=== PATIENT | female | born 1950 | race Caucasian/White ===

== ENCOUNTER 2016-09-01 19:59 | Emergency (ER) | payer MEDICARE ==
[2016-09-01 20:12] VITALS: BP 175/63
[2016-09-01 21:27] LABS: Budding Yeast Present (Absent); Urine Bacteria 1+ (Absent); Urine Bilirubin Negative (Negative); Urine Glucose Negative (Negative); Urine Nitrite Negative (Negative)
--- NOTE | 2016-09-01 21:40 | RAD ---
Indication: Altered mental status. Confused and hallucinating for the last couple of days. Craniotomy in July 2016. Comparison: August 01, 2016 MRI and June 26, 2016 CT. Technique: Noncontrast CT vertex of skull through foramen magnum. Report: 3.5 cm transverse by 1.4 cm AP postsurgical defect in the RIGHT temporal lobe inferiorly extending to the uncus medially. Overlying craniotomy site. 2 mm hyperdense band subjacent to the RIGHT temporal craniotomy site most suspicious for postsurgical meningeal thickening. No compelling evidence for extra or intra-axial hemorrhage. Negative for sulcal effacement. Negative for ventriculomegaly or ventricular compression. Negative for midline shift. Patent basal cisterns. No new intra or extra-axial lesions evident. No suspicious osseous lesions. Unremarkable visualized orbital contents. Clear visualized paranasal sinuses and mastoid air spaces. IMPRESSION: 1. Postsurgical defect reflecting interval resection at the RIGHT temporal lobe. Probable mild overlying postsurgical meningeal edema/thickening. 2. Negative for mass effect.
[2016-09-01 22:04] LABS: Hematocrit 45 % (35-47); Hemoglobin 15.5 g/dl (12.0-16.0); Mean Corpuscular HGB Conc 34 g/dl (31-36); Mean Corpuscular Hemoglobin 33 pg (27-31); Mean Corpuscular Volume 96 fL (80-97); Mean Platelet Volume 8 um3 (7.4-10.4); Red Blood Count 4.68 10^6/ul (4.0-5.4); Red Cell Distribution Width 14 % (10.5-15); White Blood Count 9.7 10^3/ul (3.5-10.8)
[2016-09-01 22:23] LABS: Albumin 4.3 g/dL (3.2-5.2); BUN/Creatinine Ratio 27.3 (8-20); C Reactive Protein 2.03 mg/L (< 5.00); Calcium 9.6 mg/dL (8.6-10.3); EGFR African American 141.8 (>60); EGFR Non-African American 110.2 (>60); Globulin 2.6 g/dL (2-4); Total Bilirubin 0.5 mg/dL (0.2-1.0); Total Protein 6.9 g/dL (6.4-8.9)
[2016-09-01 22:50] LABS: Potassium 4.2 mmol/L (3.5-5.0); Valproic Acid 100.2 mcg/mL (50-100)
--- NOTE | 2016-09-01 23:44 | ED ---
Melvin Sharp Adam, scribed for Bonifacio Myers MD on 09/01/16 at 2041 . Altered Mental Status - HPI Summary HPI Summary: Pt is a 65 year old female presenting with AMS since 16:00 today. On 06/25 the pt collapsed and had an apparent seizure. 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 It was resected on 08/19 at [facility] and she has been home taking Lortab, clonazepam, and Depakote since then. Pt's states that she suddenly began exhibiting "disjointed cognition" at 16:00 today. She thought she was seeing people who were not there and she was wondering why they were in the right house but it was in the wrong neighborhood. They called Dr. Otero and spoke with Alison Webster who did not think this AMS was due to a medication withdrawal (the pt has been taking less Lortab over the past 2 days). She also reports having pain in the back of her neck earlier today. She has been using a walker since 06/25 and working with physical therapy. She denies dizziness but states that she has difficulty balancing. She is scheduled to have her sutures removed at [facility] in 3 days. - History Of Current Complaint Chief Complaint: EDAltMentalStatus Stated Complaint: AMS Time Seen by Provider: 09/01/16 20:20 Hx Obtained From: Patient, Family/Qa Consultant - Pt's Onset/Duration: Suddenly Timing: Constant, Lasting Hours Severity Initially: Moderate Severity Currently: Mild Character: Confusion, Agitation Aggravating Factor(s): Unknown Alleviating Factor(s): Nothing Related History: Seizure - Allergies/Home Medications Allergies/Adverse Reactions: Allergies Allergy/AdvReac Type Severity Reaction Status Date / Time Codeine Allergy Vomiting Verified 07/31/16 19:55 PMH/Surg Hx/FS Hx/Imm Hx Endocrine/Hematology History: Denies: Hx Diabetes, Hx Thyroid Disease, Hx Anemia Cardiovascular History: Denies: Hx Hypertension, Hx Pacemaker/ICD Respiratory History: Denies: Hx Asthma, Hx Chronic Obstructive Pulmonary Disease (COPD) GI History: Denies: Hx Jaundice, Hx Ulcer History: Reports: Other Problems/Disorders - stress incontinence Musculoskeletal History: Reports: Hx Osteoporosis - low back Sensory History: Reports: Hx Contacts or Glasses Denies: Hx Hearing Aid Opthamlomology History: Reports: Hx Contacts or Glasses Neurological History: Reports: Hx Seizures Denies: Hx Headaches Psychiatric History: Denies: Hx Panic Disorder - Cancer History Cancer Type, Location and Year: 10 yrs ago. Right Breast stage 1 Hx Radiation Therapy: Yes - + 5 YRS PILL - Surgical History Surgery Procedure, Year, and Place: Rt LUMPTECOMY -2003. HYSTERECTOMY. PROLAPSED -BLADDER LIFT/SLING -2013. C SECTION Hx Anesthesia Reactions: No Infectious Disease History: No Infectious Disease History: Reports: Hx Hepatitis - as a 18 yr old Denies: Hx Human Immunodeficiency Virus (HIV), Hx Shingles, Hx Tuberculosis, Traveled Outside the [place] in Last 30 Days - Family History Known Family History: Positive: Other - Breast CA - Social History Occupation: Retired Lives: With Family - Alcohol Use: Weekly Alcohol Amount: one glass wine 3-4x week Hx Substance Use: No Substance Use Type: Reports: None Hx Tobacco Use: No Smoking Status (MU): Never Smoked Tobacco Review of Systems Constitutional: Negative Negative: Fever Positive: Other - Pain in back of neck Neurological: Other - Confusion. Difficulty balancing Positive: Depressed, Other - Labile mood All Other Systems Reviewed And Are Negative: Yes Physical Exam Triage Information Reviewed: Yes Vital Signs On Initial Exam: Initial Vitals Temp Pulse Resp BP Pulse Ox 98.3 F 85 16 175/63 100 09/01/16 20:04 09/01/16 20:04 09/01/16 20:04 09/01/16 20:04 09/01/16 20:04 Vital Signs Reviewed: Yes Appearance: Positive: Well-Appearing, No Pain Distress Skin: Positive: Warm, Skin Color Reflects Adequate Perfusion, Dry Head/Face: Positive: Normal Head/Face Inspection Eyes: Positive: Normal ENT: Positive: Normal ENT inspection Neck: Positive: Supple, Nontender Respiratory/Lung Sounds: Positive: Clear to Auscultation, Breath Sounds Present Cardiovascular: Positive: RRR Abdomen Description: Positive: Nontender, Soft Bowel Sounds: Positive: Present Musculoskeletal: Positive: Normal Neurological: Positive: Normal Psychiatric: Positive: Normal, Affect/Mood Appropriate Diagnostics - Vital Signs Vital Signs Temp Pulse Resp BP Pulse Ox 09/01/16 20:04 98.3 F 85 16 175/63 100 - Laboratory Lab Results: Lab Results 09/01/16 09/01/16 09/01/16 Range/Units 20:54 21:53 21:53 WBC 9.7 (3.5-10.8) 10^3/ul RBC 4.68 (4.0-5.4) 10^6/ul Hgb 15.5 (12.0-16.0) g/dl Hct 45 (35-47) % MCV 96 (80-97) fL MCH 33 H (27-31) pg MCHC 34 (31-36) g/dl RDW 14 (10.5-15) % Plt Count 314 (150-450) 10^3/ul MPV 8 (7.4-10.4) um3 Neut % (Auto) 66.7 (38-83) % Lymph % (Auto) 25.8 (25-47) % Coleman % (Auto) 6.6 (1-9) % Eos % (Auto) 0.3 (0-6) % Baso % (Auto) 0.6 (0-2) % Absolute Neuts (auto) 6.5 (1.5-7.7) 10^3/ul Absolute Lymphs (auto) 2.5 (1.0-4.8) 10^3/ul Absolute Monos (auto) 0.6 (0-0.8) 10^3/ul Absolute Eos (auto) 0 (0-0.6) 10^3/ul Absolute Basos (auto) 0.1 (0-0.2) 10^3/ul Absolute Nucleated RBC 0.01 10^3/ul Nucleated RBC % 0.1 Sodium 138 (133-145) mmol/L Potassium 4.2 (3.5-5.0) mmol/L Chloride 104 (101-111) mmol/L Carbon Dioxide 24 (22-32) mmol/L Anion Gap 10 (2-11) mmol/L BUN 15 (6-24) mg/dL Creatinine 0.55 (0.51-0.95) mg/dL Est GFR ( Amer) 141.8 (>60) Est GFR (Non-Af Amer) 110.2 (>60) BUN/Creatinine Ratio 27.3 H (8-20) Glucose 117 H (70-100) mg/dL Lactic Acid (0.5-2.0) mmol/L Calcium 9.6 (8.6-10.3) mg/dL Total Bilirubin 0.50 (0.2-1.0) mg/dL AST 19 (13-39) U/L ALT 26 (7-52) U/L Alkaline Phosphatase 45 (34-104) U/L Ammonia (16-53) mol/L Troponin I 0.00 (<0.04) ng/mL C-Reactive Protein 2.03 (< 5.00) mg/L Total Protein 6.9 (6.4-8.9) g/dL Albumin 4.3 (3.2-5.2) g/dL Globulin 2.6 (2-4) g/dL Albumin/Globulin Ratio 1.7 (1-3) Urine Color Yellow Urine Appearance Cloudy Urine pH 7.0 (5-9) Ur Specific [place] 1.026 (1.010-1.030) Urine Protein Negative (Negative) Urine Ketones 1+ H (Negative) Urine Blood Negative (Negative) Urine Nitrate Negative (Negative) Urine Bilirubin Negative (Negative) Urine Urobilinogen Negative (Negative) Ur Leukocyte Esterase 1+ H (Negative) Urine WBC (Auto) 1+(6-10/hpf) H (Absent) Urine RBC (Auto) Trace(0-2/hpf) (Absent) Ur Squamous Epith Cells Present H (Absent) Ur Transition Epith Cell Present H (Absent) Urine Bacteria 1+ H (Absent) Urine Yeast Present H (Absent) Urine Glucose Negative (Negative) Valproic Acid 100.2 H (50-100) mcg/mL 09/01/16 09/01/16 Range/Units 21:53 21:53 WBC (3.5-10.8) 10^3/ul RBC (4.0-5.4) 10^6/ul Hgb (12.0-16.0) g/dl Hct (35-47) % MCV (80-97) fL MCH (27-31) pg MCHC (31-36) g/dl RDW (10.5-15) % Plt Count (150-450) 10^3/ul MPV (7.4-10.4) um3 Neut % (Auto) (38-83) % Lymph % (Auto) (25-47) % Coleman % (Auto) (1-9) % Eos % (Auto) (0-6) % Baso % (Auto) (0-2) % Absolute Neuts (auto) (1.5-7.7) 10^3/ul Absolute Lymphs (auto) (1.0-4.8) 10^3/ul Absolute Monos (auto) (0-0.8) 10^3/ul Absolute Eos (auto) (0-0.6) 10^3/ul Absolute Basos (auto) (0-0.2) 10^3/ul Absolute Nucleated RBC 10^3/ul Nucleated RBC % Sodium (133-145) mmol/L Potassium (3.5-5.0) mmol/L Chloride (101-111) mmol/L Carbon Dioxide (22-32) mmol/L Anion Gap (2-11) mmol/L BUN (6-24) mg/dL Creatinine (0.51-0.95) mg/dL Est GFR ( Amer) (>60) Est GFR (Non-Af Amer) (>60) BUN/Creatinine Ratio (8-20) Glucose (70-100) mg/dL Lactic Acid 1.2 (0.5-2.0) mmol/L Calcium (8.6-10.3) mg/dL Total Bilirubin (0.2-1.0) mg/dL AST (13-39) U/L ALT (7-52) U/L Alkaline Phosphatase (34-104) U/L Ammonia 45 (16-53) mol/L Troponin I (<0.04) ng/mL C-Reactive Protein (< 5.00) mg/L Total Protein (6.4-8.9) g/dL Albumin (3.2-5.2) g/dL Globulin (2-4) g/dL Albumin/Globulin Ratio (1-3) Urine Color Urine Appearance Urine pH (5-9) Ur Specific [place] (1.010-1.030) Urine Protein (Negative) Urine Ketones (Negative) Urine Blood (Negative) Urine Nitrate (Negative) Urine Bilirubin (Negative) Urine Urobilinogen (Negative) Ur Leukocyte Esterase (Negative) Urine WBC (Auto) (Absent) Urine RBC (Auto) (Absent) Ur Squamous Epith Cells (Absent) Ur Transition Epith Cell (Absent) Urine Bacteria (Absent) Urine Yeast (Absent) Urine Glucose (Negative) Valproic Acid (50-100) mcg/mL Result Diagrams: 09/01/16 21:53 09/01/16 21:53 Lab Statement: Any lab studies that have been ordered have been reviewed, and results considered in the medical decision making process. - CT BRAIN CT Interpretation Completed By: Radiologist - IMPRESSION: 1. Postsurgical defect reflecting interval resection at the RIGHT temporal lobe. Probable mild overlying postsurgical meningeal edema/thickening. 2. Negative for mass effect. - Additional Comments Diagnostic Additional Comments: Troponin I - 0.00 Altered Mental Statu Course/Dx - Course Course Of Treatment: Ms. Bo presented with a couple of episodes of confusion vs hallucination vs cognitive dissonance that occurred today. She has been taking pain meds since her surgery and is trying to wean herself off. The source of her symptoms is still uncertain but I do not think anything immediately dangerous is happening and she has a F/U appointment on . - Diagnoses Discharge Diagnoses: Confusion Discharge - Discharge Plan Condition: Stable Disposition: HOME Patient Education Materials: Altered Mental Status (ED) Additional Instructions: Keep appointment with Dr. Sanderson on 09/04. The documentation as recorded by the Melvin amezcua Adam accurately reflects the service I personally performed and the decisions made by me, Bonifacio Myers MD.
== END 2016-09-01 23:40 | disposition home or self-care (01) ==
LOC: ED 19:59
DX: R41.0 Disorientation, unspecified (principal); M54.2 Cervicalgia; F32.9 Major depressive disorder, single episode, unspecified; Z98.890 Other specified postprocedural states
CPT/HCPCS: 36415; 70450; 80053; 80164; 81003; 81015; 82140; 83605; 84484; 85025; 86140; 87086; 99282

== ENCOUNTER 2016-09-27 11:29 | Emergency (ER) | payer MEDICARE ==
[2016-09-27 11:51] VITALS: BP 124/101
[2016-09-27] MEDS ORDERED: NS 0.9% 1000 ML* 2,000 ML IV ONE (14:06)
[2016-09-27 14:33] LABS: ALT 16 U/L (7-52); AST 19 U/L (13-39); Albumin 4.4 g/dL (3.2-5.2); Alkaline Phosphatase 62 U/L (34-104); Amylase 40 U/L (29-103); Anion Gap 10 mmol/L (2-11); BUN/Creatinine Ratio 12.7 (8-20); Blood Urea Nitrogen 9 mg/dL (6-24); C Reactive Protein < 1.00 mg/L (< 5.00); CO2 Carbon Dioxide 22 mmol/L (22-32); Calcium 10.1 mg/dL (8.6-10.3); Chloride 106 mmol/L (101-111); EGFR African American 105.6 (>60); EGFR Non-African American 82.1 (>60); Globulin 2.7 g/dL (2-4); Glucose 106 mg/dL (70-100); Lipase 61 U/L (11.0-82.0); Potassium 4.1 mmol/L (3.5-5.0); Sodium 138 mmol/L (133-145); Total Protein 7.1 g/dL (6.4-8.9)
[2016-09-27 14:51] LABS: Hematocrit 45 % (35-47); Hemoglobin 15.6 g/dl (12.0-16.0); Mean Corpuscular HGB Conc 35 g/dl (31-36); Mean Corpuscular Hemoglobin 33 pg (27-31); Mean Corpuscular Volume 95 fL (80-97); Mean Platelet Volume 8 um3 (7.4-10.4); Red Blood Count 4.75 10^6/ul (4.0-5.4); Red Cell Distribution Width 14 % (10.5-15); White Blood Count 8.8 10^3/ul (3.5-10.8)
--- NOTE | 2016-09-27 15:38 | ED ---
Lamar Sharp Rebecca, scribed for Kwadwo Mccarty MD on 09/27/16 at 1351 . Headache - HPI Summary HPI Summary: Pt is a 65 y/o F who presents to ED c/o LEIGH. LEIGH is acute on chronic, beginning suddenly s/p brain tumor removal surgery on August 19 which has been intermittent since onset. LEIGH location "moves around" without radiation and intensity waxes and wanes. Currently, pain is not present. Sx aggravated by light, alleviated by nothing. Additionally c/o LLQ pain, nausea and mild confusion. Nausea has been present constantly since surgery. Nausea and LEIGH are not always present concurrently. Denies V/D, fever, chills, decrease in urinary frequency or abdominal bloating. Confirms normal patterns of passing gas and belching. Per pt, PCP reported that her Clonazepam may be causing nausea. PCP is Dr. Cachorro Otero. Tried to contact him today but was unable, so she was evaluated by a visiting nurse who advised that pt be evaluated by ED. Surgery was performed at [facility] in [place], [place]. 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 Has an appointment with Dr. Linda on Thursday (2 days from today). PMHx prolapsed bladder. - History Of Current Complaint Chief Complaint: EDHeadache Stated Complaint: NAUSEA/HEADACHE Time Seen by Provider: 09/27/16 13:28 Hx Obtained From: Patient Onset/Duration: Sudden Onset, Started weeks ago - 4 weeks ago Initially Headache Was: Moderate Currently Pain Is: Current Pain Scale(0-10)= - 0 Timing: Intermittent, Lasting: Location of Headache: Diffuse Aggravating Factor: Bright Lights Allevating Factors: Nothing Associated Signs And Symptoms: Nausea, Other (Noted In Comments) - Mild confusion - Allergies/Home Medications Allergies/Adverse Reactions: Allergies Allergy/AdvReac Type Severity Reaction Status Date / Time Codeine Allergy Vomiting Verified 09/27/16 11:43 PMH/Surg Hx/FS Hx/Imm Hx Endocrine/Hematology History: Denies: Hx Diabetes, Hx Thyroid Disease, Hx Anemia Cardiovascular History: Denies: Hx Hypertension, Hx Pacemaker/ICD Respiratory History: Denies: Hx Asthma, Hx Chronic Obstructive Pulmonary Disease (COPD) GI History: Denies: Hx Jaundice, Hx Ulcer History: Reports: Other Problems/Disorders - stress incontinence Musculoskeletal History: Reports: Hx Osteoporosis - low back Sensory History: Reports: Hx Contacts or Glasses Denies: Hx Hearing Aid Opthamlomology History: Reports: Hx Contacts or Glasses Neurological History: Reports: Hx Seizures Denies: Hx Headaches Psychiatric History: Denies: Hx Panic Disorder - Cancer History Cancer Type, Location and Year: 10 yrs ago. Right Breast stage 1 Hx Radiation Therapy: Yes - + 5 YRS PILL - Surgical History Surgery Procedure, Year, and Place: Rt LUMPTECOMY -2003. HYSTERECTOMY. PROLAPSED -BLADDER LIFT/SLING -2013. C SECTION. BRAIN TUMOR REMOVAL - [facility] - 2016 Hx Anesthesia Reactions: No Infectious Disease History: No Infectious Disease History: Reports: Hx Hepatitis - as a 18 yr old Denies: Hx Human Immunodeficiency Virus (HIV), Hx Shingles, Hx Tuberculosis, Traveled Outside the in Last 30 Days - Family History Known Family History: Positive: Other - Breast CA - Social History Alcohol Use: Weekly Alcohol Amount: one glass wine 3-4x week Hx Substance Use: No Substance Use Type: Reports: None Hx Tobacco Use: No Smoking Status (MU): Never Smoked Tobacco Review of Systems Negative: Fever, Chills Positive: Abdominal Pain - LLQ, Nausea, Other - Denies abdominal bloating. Negative: Vomiting, Diarrhea Negative: frequency Positive: Headache - intermittent Positive: Other - Episodes of confusion All Other Systems Reviewed And Are Negative: Yes Physical Exam - Summary Physical Exam Summary: The patient is well-nourished in no acute distress and in no acute pain. The skin is warm and dry and skin color reflects adequate perfusion. Good skin turgor. HEENT: The head is normocephalic and atraumatic. The pupils are equal and reactive. The conjunctivae are clear and without drainage. Nares are patent and without drainage. Mouth reveals dry mucous membranes and the throat is dry , without erythema and exudate. The external ears are intact. The ear canals are patent and without drainage. The tympanic membranes are intact. Neck is supple with full range of motion and non-tender. There are no carotid bruits. There is no neck vein distension. Respiratory: Chest is non-tender. Lungs are clear to auscultation and breath sounds are symmetrical and equal. Cardiovascular: Hear is regular rate and rhythm. There is no murmur or rub auscultated. There is no peripheral edema and pulses are symmetrical and equal. Abdomen: The abdomen is soft. There are normal bowel sounds heard in all four quadrants and there is no organomegaly palpated. LLQ pain. Not distended. Musculoskeletal: There is no back pain noted. Extremities are non-tender with full range of motion. There is good capillary refill. There is no peripheral edema or calf tenderness elicited. Neurological: Patient is alert and oriented to person, place and time. The patient has symmetrical motor strength in all four extremities. Cranial nerves are grossly intact. Deep tendon reflexes are symmetrical and equal in all four extremities. Psychiatric: The patient is anxious, very upset with a labile mood. Triage Information Reviewed: Yes Vital Signs On Initial Exam: Initial Vitals Temp Pulse Resp BP Pulse Ox 98.6 F 81 16 124/101 98 09/27/16 11:44 09/27/16 11:44 09/27/16 11:44 09/27/16 11:44 09/27/16 11:44 Vital Signs Reviewed: Yes Diagnostics - Vital Signs Vital Signs Temp Pulse Resp BP Pulse Ox 09/27/16 11:44 98.6 F 81 16 124/101 98 - Laboratory Lab Results: Lab Results 09/27/16 09/27/16 09/27/16 Range/Units 12:45 12:45 14:45 WBC 8.8 (3.5-10.8) 10^3/ul RBC 4.75 (4.0-5.4) 10^6/ul Hgb 15.6 (12.0-16.0) g/dl Hct 45 (35-47) % MCV 95 (80-97) fL MCH 33 H (27-31) pg MCHC 35 (31-36) g/dl RDW 14 (10.5-15) % Plt Count 264 (150-450) 10^3/ul MPV 8 (7.4-10.4) um3 Neut % (Auto) 60.2 (38-83) % Lymph % (Auto) 32.3 (25-47) % [place] % (Auto) 5.7 (1-9) % Eos % (Auto) 0.7 (0-6) % Baso % (Auto) 1.1 (0-2) % Absolute Neuts (auto) 5.3 (1.5-7.7) 10^3/ul Absolute Lymphs (auto) 2.8 (1.0-4.8) 10^3/ul Absolute Monos (auto) 0.5 (0-0.8) 10^3/ul Absolute Eos (auto) 0.1 (0-0.6) 10^3/ul Absolute Basos (auto) 0.1 (0-0.2) 10^3/ul Absolute Nucleated RBC 0.01 10^3/ul Nucleated RBC % 0.1 Sodium 138 (133-145) mmol/L Potassium 4.1 (3.5-5.0) mmol/L Chloride 106 (101-111) mmol/L Carbon Dioxide 22 (22-32) mmol/L Anion Gap 10 (2-11) mmol/L BUN 9 (6-24) mg/dL Creatinine 0.71 (0.51-0.95) mg/dL Est GFR ( Amer) 105.6 (>60) Est GFR (Non-Af Amer) 82.1 (>60) BUN/Creatinine Ratio 12.7 (8-20) Glucose 106 H (70-100) mg/dL Lactic Acid 2.0 (0.5-2.0) mmol/L Calcium 10.1 (8.6-10.3) mg/dL Total Bilirubin 0.90 (0.2-1.0) mg/dL AST 19 (13-39) U/L ALT 16 (7-52) U/L Alkaline Phosphatase 62 (34-104) U/L C-Reactive Protein < 1.00 (< 5.00) mg/L Total Protein 7.1 (6.4-8.9) g/dL Albumin 4.4 (3.2-5.2) g/dL Globulin 2.7 (2-4) g/dL Albumin/Globulin Ratio 1.6 (1-3) Amylase 40 (29-103) U/L Lipase 61 (11.0-82.0) U/L Result Diagrams: 09/27/16 14:45 09/27/16 12:45 Lab Statement: Any lab studies that have been ordered have been reviewed, and results considered in the medical decision making process. Headache Course/Dx - Course Assessment/Plan: Pt is a 65 y/o F who presents to ED c/o LEIGH, nausea, mild confusion and LLQ pain for the last 4 weeks s/p brain tumor removal surgery. Denies V/D, fever, chills, decrease in urinary frequency or abdominal bloating. Pt will be signed out to Dr. Pablo. - Diagnoses Differential Diagnosis/HQI/PQRI: Other - sbo, colitis, intracranial bleed, mass , intrcerbral edema, uti, depression, anxiety Provider Diagnoses: Abdominal pain, Head ache, Brain mass Discharge - Discharge Plan Condition: Stable Disposition: OTHER Discharge Disposition Comment: Pt will be signed out to Dr. Pablo, pending dispo, awaiting CT scans The documentation as recorded by the Lamar amezcua Rebecca accurately reflects the service I personally performed and the decisions made by , Kwadwo Mccarty MD.
[2016-09-27] MEDS ORDERED: Iohexol 300* (CONTRAST) 10 ML SDV IV ONE (15:39)
--- NOTE | 2016-09-27 16:15 | RAD ---
Indication: Craniotomy, headache. CT of the brain performed without IV contrast. Ventricular structures are midline. No midline shift is noted. Extra-axial spaces are unremarkable. There is no evidence of intracranial mass or hemorrhage. When compared to previous exam of September 01, 2016 no significant change is noted. Hypodensity in the right temporal lobe is unchanged. This likely represents some encephalomalacia. Patient is status post right-sided craniotomy without change since prior exam. Paranasal sinuses are otherwise unremarkable. No intracranial hemorrhage is noted. IMPRESSION: Postoperative changes right temporal lobe with no intracranial mass or hemorrhage.
--- NOTE | 2016-09-27 16:24 | RAD ---
Indication: Recent craniotomy with vomiting. CT of the abdomen and pelvis was performed after oral and IV contrast administration. Coronal and sagittal reconstructed images were obtained. Lung bases demonstrate no pleural fluid, nodules or masses. Heart is of normal size without evidence of pericardial effusion. Liver is normal in size. No focal lesions or intrahepatic ductal dilatation is noted. Typical area of focal fatty infiltration is noted in the anterior medial segment of left lobe liver. Spleen is normal in size. Common duct is not dilated. Gallbladder appears to be partially contracted. No definite calcified gallstones are noted. No pericholecystic fluid or wall thickening is identified. Pancreas demonstrates no mass or pancreatic ductal dilatation. Common duct is not dilated. No adrenal lesions are noted. The kidneys demonstrate symmetric nephrograms without hydronephrosis. No retroperitoneal adenopathy is noted. Aorta and inferior vena cava are unremarkable. No dilated loops of bowel are noted. The urinary bladder is unremarkable. Contrast is noted in the colon. No evidence of bowel obstruction is noted. CT of the pelvis demonstrates no hernias. No pelvic adenopathy is noted. Patient appears to be status post hysterectomy. The bony structures are grossly unremarkable. IMPRESSION: NO EVIDENCE OF BOWEL OBSTRUCTION IS NOTED. PARTIALLY CONTRACTED GALLBLADDER. NO OTHER MASSES OR FLUID COLLECTIONS ARE IDENTIFIED.
[2016-09-27 16:30] LABS: Urine Bilirubin Negative (Negative); Urine Glucose Negative (Negative); Urine Nitrite Negative (Negative)
[2016-09-27] MEDS ORDERED: Ketorolac INJ* 30 MG/ML 1 ML VIAL IV PUSH ONE (17:03)
--- NOTE | 2016-09-28 23:21 | ED ---
Sophie Sharp Anna, scribed for Jeffrey Pablo MD on 09/27/16 at 1644 . Progress - Progress Note Progress Note: Pt is a 65 y/o female coming to [facility] presenting with a LEIGH that began following surgery 08/19/2016. She was seen today after her visiting nurse was concerned about headaches. LEIGH has since moved into right confucianist and behind eye in the last hour. She describes the severity of the pain as 4/10. She additionally expresses nausea, abd pain, confusion, and anxiety. Denies sensitivity to light or sound, dizziness, lightheadedness, trauma to head. She has been taking Tylenol for the LEIGH most days. Normal BM. Some abd pain was alleviated by urination. She was recently put on medication to prevent seizures. This was changed from Kepra to Depakote. Her first full anti-depression pill was taken last night. She had been taking half pills for six days before this, as prescribed by Dr. Otero in consultation with Dr. Jaimes. Re-Evaluation - Re-Evaluation First Eval Re-Evaluation Time: 16:51 Change: Worse Comment: In the last hour, her LEIGH has moved to her right confucianist. Course/Dx - Course Course Of Treatment: Suspect LEIGH and abd sx related to increased dose of Zoloft also relatively recent post-operative state. No signs of concern for subarachnoid hemorrhage. No acute neurological deficits. Pt is agreeable to d/ c. Should f/u with Dr. Otero within 2-3 days. Her instructions will be to reduce Zoloft dose back to tablet. - Diagnoses Provider Diagnoses: Abdominal pain, Head ache, Brain mass - Provider Notifications Discussed Care Of Patient With: Dr. Starr Otero (PCP) at 18:05. Agrees with d/c plan. Call her office on Thursday for appointment. Pt will resume original dose of Zoloft. Diagnostics - Vital Signs Vital Signs Temp Pulse Resp BP Pulse Ox 09/27/16 11:44 98.6 F 81 16 124/101 98 - Laboratory Lab Results: Lab Results 09/27/16 09/27/16 09/27/16 Range/Units 12:45 12:45 14:45 WBC 8.8 (3.5-10.8) 10^3/ul RBC 4.75 (4.0-5.4) 10^6/ul Hgb 15.6 (12.0-16.0) g/dl Hct 45 (35-47) % MCV 95 (80-97) fL MCH 33 H (27-31) pg MCHC 35 (31-36) g/dl RDW 14 (10.5-15) % Plt Count 264 (150-450) 10^3/ul MPV 8 (7.4-10.4) um3 Neut % (Auto) 60.2 (38-83) % Lymph % (Auto) 32.3 (25-47) % [place] % (Auto) 5.7 (1-9) % Eos % (Auto) 0.7 (0-6) % Baso % (Auto) 1.1 (0-2) % Absolute Neuts (auto) 5.3 (1.5-7.7) 10^3/ul Absolute Lymphs (auto) 2.8 (1.0-4.8) 10^3/ul Absolute Monos (auto) 0.5 (0-0.8) 10^3/ul Absolute Eos (auto) 0.1 (0-0.6) 10^3/ul Absolute Basos (auto) 0.1 (0-0.2) 10^3/ul Absolute Nucleated RBC 0.01 10^3/ul Nucleated RBC % 0.1 Sodium 138 (133-145) mmol/L Potassium 4.1 (3.5-5.0) mmol/L Chloride 106 (101-111) mmol/L Carbon Dioxide 22 (22-32) mmol/L Anion Gap 10 (2-11) mmol/L BUN 9 (6-24) mg/dL Creatinine 0.71 (0.51-0.95) mg/dL Est GFR ( Amer) 105.6 (>60) Est GFR (Non-Af Amer) 82.1 (>60) BUN/Creatinine Ratio 12.7 (8-20) Glucose 106 H (70-100) mg/dL Lactic Acid 2.0 (0.5-2.0) mmol/L Calcium 10.1 (8.6-10.3) mg/dL Total Bilirubin 0.90 (0.2-1.0) mg/dL AST 19 (13-39) U/L ALT 16 (7-52) U/L Alkaline Phosphatase 62 (34-104) U/L C-Reactive Protein < 1.00 (< 5.00) mg/L Total Protein 7.1 (6.4-8.9) g/dL Albumin 4.4 (3.2-5.2) g/dL Globulin 2.7 (2-4) g/dL Albumin/Globulin Ratio 1.6 (1-3) Amylase 40 (29-103) U/L Lipase 61 (11.0-82.0) U/L Result Diagrams: 09/27/16 14:45 09/27/16 12:45 Lab Statement: Any lab studies that have been ordered have been reviewed, and results considered in the medical decision making process. - CT Brain CT CT Interpretation: No Acute Changes CT Interpretation Completed By: Radiologist - IMPRESSION: Postoperative changes right temporal lobe with no intracranial mass or hemorrhage. CT abd/pel CT Interpretation: Positive (See Comments) CT Interpretation Completed By: Radiologist - IMPRESSION: NO EVIDENCE OF BOWEL OBSTRUCTION IS NOTED. PARTIALLY CONTRACTED GALLBLADDER. NO OTHER MASSES OR FLUID COLLECTIONS ARE IDENTIFIED. The documentation as recorded by the Sophie amezcua Anna accurately reflects the service I personally performed and the decisions made by , Jeffrey Pablo MD.
== END 2016-09-27 18:35 | disposition home or self-care (01) ==
LOC: ED 11:29
DX: R10.32 Left lower quadrant pain (principal); R51 Headache; G93.89 Other specified disorders of brain; R11.0 Nausea
CPT/HCPCS: 36415; 70450; 74177; 80053; 81003; 82150; 83605; 83690; 85025; 86140; 96361; 96374; 99282; Q9967

== ENCOUNTER 2016-11-12 10:20 | Emergency (ER) | payer MEDICARE ==
[2016-11-12] MEDS ORDERED: Sucralfate TAB* 1 GM PO ONE (11:52)
[2016-11-12 12:07] LABS: Urine Bilirubin Negative (Negative); Urine Glucose Negative (Negative); Urine Nitrite Negative (Negative)
[2016-11-12 12:22] LABS: Hematocrit 46 % (35-47); Hemoglobin 15.9 g/dl (12.0-16.0); Mean Corpuscular HGB Conc 35 g/dl (31-36); Mean Corpuscular Hemoglobin 33 pg (27-31); Mean Corpuscular Volume 96 fL (80-97); Mean Platelet Volume 8 um3 (7.4-10.4); Red Blood Count 4.76 10^6/ul (4.0-5.4); Red Cell Distribution Width 13 % (10.5-15); White Blood Count 8.4 10^3/ul (3.5-10.8)
[2016-11-12 12:50] LABS: Albumin 4.3 g/dL (3.2-5.2); BUN/Creatinine Ratio 20.9 (8-20); C Reactive Protein 23.37 mg/L (< 5.00); Calcium 10.2 mg/dL (8.6-10.3); EGFR African American 112.9 (>60); EGFR Non-African American 87.8 (>60); Globulin 2.7 g/dL (2-4); Potassium 3.4 mmol/L (3.5-5.0); Total Bilirubin 0.6 mg/dL (0.2-1.0)
[2016-11-12 14:10] VITALS: BP 137/86
--- NOTE | 2016-11-12 20:49 | ED ---
Susan Sharp Erika, scribed for Bonifacio Myers MD on 11/12/16 at 1217 . Abdominal Pain/Female - HPI Summary HPI Summary: Patient is a 65-year-old female presenting to the ED with a CC of epigastric pain. Patient reports pain started after eating scrambled eggs and toast this morning. Patient reports that pain was first across the top of her abdomen, then traveled mid-sternal, and then traveled right anterior and became sharp. This pattern of pain moving around and becoming sharp continued. Pain was aggravated by palpation, but was unchanged with ambulation, movement, and the supine position. Patient took 3 Tums, some Papaya Enzyme, and Bismuth liquid, and pain is less severe than before. Pt reports she was anxious and shaking since the onset of symptoms. Patient reports a Hx of brain cancer, for which she had surgery and has had 25 radiation treatments. Patient states she has been weak, anxious, and nauseated since then. Patient was scheduled for radiation this morning, but they recommended she come to the ED first instead. Patient reports she has had lower abdominal pain before which turned out to be gas, but has not had upper abdominal pain before. Patient had a CT A/P with contrast in August 2016. Hx brain cancer - followed by Dr. Jaimes, taking anti -seizure medication. Denies Hx cholecystectomy. - History of Current Complaint Chief Complaint: EDAbdPain Stated Complaint: RIB PAIN Time Seen by Provider: 11/12/16 11:30 Hx Obtained From: Patient, Family/Director Adult - Onset/Duration: Gradual Onset, Lasting Hours, Still Present Timing: Constant Severity Currently: Moderate Pain Intensity: 3 Pain Scale Used: 0-10 Numeric Location: Epigastric Radiates: Yes Radiates to: Chest Character: Sharp Aggravating Factor(s): Other: - palpation Alleviating Factor(s): Other: - 3 Tums, some Papaya Enzyme, and Bismuth liquid Associated Signs and Symptoms: Positive: Other: - anxiety Allergies/Adverse Reactions: Allergies Allergy/AdvReac Type Severity Reaction Status Date / Time Codeine Allergy Vomiting Verified 09/27/16 11:43 PMH/Surg Hx/FS Hx/Imm Hx Endocrine/Hematology History: Denies: Hx Diabetes, Hx Thyroid Disease, Hx Anemia Cardiovascular History: Denies: Hx Hypertension, Hx Pacemaker/ICD Respiratory History: Denies: Hx Asthma, Hx Chronic Obstructive Pulmonary Disease (COPD) GI History: Denies: Hx Jaundice, Hx Ulcer History: Reports: Other Problems/Disorders - stress incontinence Denies: Hx Renal Disease Musculoskeletal History: Reports: Hx Osteoporosis - low back Sensory History: Reports: Hx Contacts or Glasses Denies: Hx Hearing Aid Opthamlomology History: Reports: Hx Contacts or Glasses Neurological History: Reports: Hx Seizures Denies: Hx Headaches Psychiatric History: Denies: Hx Panic Disorder - Cancer History Cancer Type, Location and Year: 10 yrs ago. Right Breast stage 1 Hx Radiation Therapy: Yes - + 5 YRS PILL - Surgical History Surgery Procedure, Year, and Place: Rt LUMPTECOMY -2003. HYSTERECTOMY. PROLAPSED -BLADDER LIFT/SLING -2013. C SECTION. BRAIN TUMOR REMOVAL - [facility] - 2015 Hx Anesthesia Reactions: No Infectious Disease History: No Infectious Disease History: Reports: Hx Hepatitis - as a 18 yr old Denies: Hx Human Immunodeficiency Virus (HIV), Hx Shingles, Hx Tuberculosis, Traveled Outside the in Last 30 Days - Family History Known Family History: Positive: Other - Breast CA - Social History Alcohol Use: Weekly Alcohol Amount: one glass wine 3-4x week Hx Substance Use: No Substance Use Type: Reports: None Hx Tobacco Use: No Smoking Status (MU): Never Smoked Tobacco Review of Systems Positive: Chest Pain Positive: Abdominal Pain, Nausea Positive: Weakness Positive: Anxious - with shaking All Other Systems Reviewed And Are Negative: Yes Physical Exam Triage Information Reviewed: Yes Vital Signs On Initial Exam: Initial Vitals Temp Pulse Resp BP Pulse Ox 100 F 84 18 109/85 97 11/12/16 10:32 11/12/16 10:32 11/12/16 10:32 11/12/16 10:32 11/12/16 10:32 Vital Signs Reviewed: Yes Appearance: Positive: Well-Appearing, No Pain Distress, Well-Nourished Skin: Positive: Warm, Skin Color Reflects Adequate Perfusion, Dry Head/Face: Positive: Normal Head/Face Inspection Eyes: Positive: Normal ENT: Positive: Normal ENT inspection Neck: Positive: Supple, Nontender Respiratory/Lung Sounds: Positive: Clear to Auscultation, Breath Sounds Present Cardiovascular: Positive: RRR Abdomen Description: Positive: Soft, Other: - Mildly tender epigastrum Bowel Sounds: Positive: Present Musculoskeletal: Positive: Normal Neurological: Positive: Normal Psychiatric: Positive: Anxious Diagnostics - Vital Signs Vital Signs Temp Pulse Resp BP Pulse Ox 11/12/16 10:32 100 F 84 18 109/85 97 - Laboratory Lab Results: Lab Results 11/12/16 11/12/16 11/12/16 Range/Units 11:56 12:10 12:10 WBC 8.4 (3.5-10.8) 10^3/ul RBC 4.76 (4.0-5.4) 10^6/ul Hgb 15.9 (12.0-16.0) g/dl Hct 46 (35-47) % MCV 96 (80-97) fL MCH 33 H (27-31) pg MCHC 35 (31-36) g/dl RDW 13 (10.5-15) % Plt Count 194 (150-450) 10^3/ul MPV 8 (7.4-10.4) um3 Neut % (Auto) 84.1 H (38-83) % Lymph % (Auto) 8.9 L (25-47) % [place] % (Auto) 5.5 (1-9) % Eos % (Auto) 0.9 (0-6) % Baso % (Auto) 0.6 (0-2) % Absolute Neuts (auto) 7.1 (1.5-7.7) 10^3/ul Absolute Lymphs (auto) 0.7 L (1.0-4.8) 10^3/ul Absolute Monos (auto) 0.5 (0-0.8) 10^3/ul Absolute Eos (auto) 0.1 (0-0.6) 10^3/ul Absolute Basos (auto) 0 (0-0.2) 10^3/ul Absolute Nucleated RBC 0 10^3/ul Nucleated RBC % 0 Sodium 136 (133-145) mmol/L Potassium 3.4 L (3.5-5.0) mmol/L Chloride 103 (101-111) mmol/L Carbon Dioxide 24 (22-32) mmol/L Anion Gap 9 (2-11) mmol/L BUN 14 (6-24) mg/dL Creatinine 0.67 (0.51-0.95) mg/dL Est GFR ( Amer) 112.9 (>60) Est GFR (Non-Af Amer) 87.8 (>60) BUN/Creatinine Ratio 20.9 H (8-20) Glucose 112 H (70-100) mg/dL Calcium 10.2 (8.6-10.3) mg/dL Total Bilirubin 0.60 (0.2-1.0) mg/dL AST 23 (13-39) U/L ALT 21 (7-52) U/L Alkaline Phosphatase 64 (34-104) U/L Troponin I 0.00 (<0.04) ng/mL C-Reactive Protein 23.37 H (< 5.00) mg/L Total Protein 7.0 (6.4-8.9) g/dL Albumin 4.3 (3.2-5.2) g/dL Globulin 2.7 (2-4) g/dL Albumin/Globulin Ratio 1.6 (1-3) Lipase 32 (11.0-82.0) U/L Urine Color Yellow Urine Appearance Clear Urine pH 7.0 (5-9) Ur Specific [place] 1.012 (1.010-1.030) Urine Protein Negative (Negative) Urine Ketones Negative (Negative) Urine Blood Negative (Negative) Urine Nitrate Negative (Negative) Urine Bilirubin Negative (Negative) Urine Urobilinogen Negative (Negative) Ur Leukocyte Esterase Negative (Negative) Urine Glucose Negative (Negative) Result Diagrams: 11/12/16 12:10 11/12/16 12:10 Lab Statement: Any lab studies that have been ordered have been reviewed, and results considered in the medical decision making process. - EKG 13:10 Cardiac Rate: NL - at 79 bpm EKG Rhythm: Sinus Rhythm ST Segment: Non-Specific Re-Evaluation - Re-Evaluation First Eval Re-Evaluation Time: 13:33 Comment: Discussed lab results with patient Second Eval Re-Evaluation Time: 14:01 Comment: Discussed Dr. Otero's recommendation Abdominal Pain Fem Course/Dx - Course Course Of Treatment: Marquita Bo got some relief with sucralfate here and her W/ U was OK. I considered getting a GB U/S but she ate some food here while waitng for lab results. She felt better and agreed to F/U with Dr. Otero. - Diagnoses Provider Diagnoses: Epigastric abdominal pain - Provider Notifications Discussed Care Of Patient With: Dr. Angela Otero (pt's PCP) at 13:42 - notified of patient's condition Discharge - Discharge Plan Condition: Stable Disposition: HOME Patient Education Materials: Epigastric Pain (ED) Referrals: Angela Otero MD [Primary Care Provider] - Additional Instructions: Please follow up with Dr. Otero next week. The documentation as recorded by the Susan amezcua Erika accurately reflects the service I personally performed and the decisions made by me, Bonifacio Myers MD.
== END 2016-11-12 14:09 | disposition home or self-care (01) ==
LOC: ED 10:20
DX: R10.13 Epigastric pain (principal); R07.9 Chest pain, unspecified; R11.0 Nausea; R53.1 Weakness; F41.9 Anxiety disorder, unspecified
CPT/HCPCS: 36415; 80053; 81003; 83690; 84484; 85025; 86140; 93005; 99282; A9270-GY

== ENCOUNTER 2016-11-29 10:24 | Inpatient (IN) | payer MEDICARE ==
[2016-11-29] MEDS ORDERED: Ondansetron INJ* 2 MG/ML VIAL IV ONE ×2 (11:44→15:50)
[2016-11-29] MEDS: NS 0.9% 1000 ML* 2,000 ML IV ONE (12:03)
[2016-11-29 12:09] LABS: Hematocrit 43 % (35-47); Hemoglobin 14.7 g/dl (12.0-16.0); Mean Corpuscular HGB Conc 34 g/dl (31-36); Mean Corpuscular Hemoglobin 33 pg (27-31); Mean Corpuscular Volume 95 fL (80-97); Mean Platelet Volume 8 um3 (7.4-10.4); Red Blood Count 4.49 10^6/ul (4.0-5.4); Red Cell Distribution Width 13 % (10.5-15); White Blood Count 7.6 10^3/ul (3.5-10.8)
[2016-11-29 12:29] LABS: ALT 12 U/L (7-52); AST 11 U/L (13-39); Alkaline Phosphatase 56 U/L (34-104); Amylase 30 U/L (29-103); Anion Gap 9 mmol/L (2-11); BUN/Creatinine Ratio 23.1 (8-20); Blood Urea Nitrogen 15 mg/dL (6-24); C Reactive Protein < 1.00 mg/L (< 5.00); CO2 Carbon Dioxide 21 mmol/L (22-32); Calcium 9.4 mg/dL (8.6-10.3); Chloride 106 mmol/L (101-111); EGFR African American 116.9 (>60); EGFR Non-African American 90.9 (>60); Globulin 2.5 g/dL (2-4); Glucose 140 mg/dL (70-100); Lipase 44 U/L (11.0-82.0); Potassium 3.5 mmol/L (3.5-5.0); Sodium 136 mmol/L (133-145); Total Protein 6.5 g/dL (6.4-8.9)
--- NOTE | 2016-11-29 12:34 | RAD ---
INDICATION: Right upper quadrant pain and vomiting. COMPARISON: Comparison is made with a prior CT of the brain from September 27, 2016. TECHNIQUE: Multiple real-time images of the right upper quadrant were obtained. FINDINGS: There are multiple gallstones present including a nonmobile stone within the neck of the gallbladder. No gallbladder wall thickening or pericholecystic fluid is seen. No intra or extrahepatic ductal distention is present. The common bile duct measured 0.3 cm in diameter. The liver is normal in size without significant focal abnormality. The pancreas is partially obscured by overlying bowel gas. The kidney is normal in size. No hydronephrosis is present. There is a hyperechoic lesion present in the superior pole of the kidney measuring 1.5 x 1.2 x 1.2 cm. This correlates with a fatty density lesion on the prior CT study and likely represents an angiomyolipoma. IMPRESSION: 1. CHOLELITHIASIS WITH POSSIBLE IMPACTED CALCULUS IN THE NECK OF THE GALLBLADDER. 2. 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
[2016-11-29 12:58] LABS: Urine Bilirubin Negative (Negative); Urine Glucose Negative (Negative); Urine Nitrite Negative (Negative)
--- NOTE | 2016-11-29 13:39 | RAD ---
INDICATION: Confusion, recent radiation for brain tumor. COMPARISON: Comparison is made with a prior CT of the brain from September 27 2016. TECHNIQUE: Contiguous axial sections of the brain were obtained from the skull base to the vertex without contrast. FINDINGS: The patient is status post right temporal craniotomy. The ventricles, cisterns and sulci appear to be within normal limits. There is a focal curvilinear area of decreased attenuation present in the right temporal lobe which is unchanged most consistent with postsurgical change and encephalomalacia. No other focal abnormality or mass effect is seen. There is no evidence for hemorrhage. The visualized portion of the paranasal sinuses and mastoid air cells appear clear. IMPRESSION: STATUS POST RIGHT TEMPORAL CRANIOTOMY AND POSTSURGICAL CHANGE IN THE RIGHT TEMPORAL LOBE, NO EVIDENCE FOR ACUTE FINDING.
[2016-11-29] MEDS ORDERED: NS 0.9% 1000 ML* 1,000 ML IV ONE (15:50)
--- NOTE | 2016-11-29 15:58 | ED ---
Lamar Sharp Rebecca, scribed for Kwadwo Mccarty MD on 11/29/16 at 1143 . Abdominal Pain/Female - HPI Summary HPI Summary: Pt is a 65 y/o F who presents to ED c/o abd pain. Pain began gradually 4 days ago and has been constant since onset. Pain is discrete to the RUQ and characterized as sharp. Currently mild, ranked 2/10. Sx aggravated by eating, alleviated by nothing. Additionally c/o decreased appetite, generalized weakness , fatigue and dizziness. Dizziness characterized as "feeling like I was going to pass out" and "tippy, off-centered." Reports alternating diarrhea and constipation. Denies blood in stool, palpitations, chest pain and cough. PSHx brain tumor removal in July, at [facility]. Ceased radiation on 2016 and will begin chemotherapy [address] Linda is oncologist responsible for treatments. Does not have a port. 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 - History of Current Complaint Chief Complaint: EDGeneral Stated Complaint: DIZZY,CONFUSED, WEEKNESS Hx Obtained From: Patient Onset/Duration: Gradual Onset, Lasting Days - 4 days ago, Still Present Timing: Constant Severity Initially: Mild Severity Currently: Mild Pain Intensity: 2 Pain Scale Used: 0-10 Numeric Location: Discrete At: RUQ Radiates: No Character: Sharp Aggravating Factor(s): Food Alleviating Factor(s): Nothing Associated Signs and Symptoms: Positive: Dizzy, Constipation, Decreased Appetite , Diarrhea, Other: - Generalized weakness, fatigue. Negative: Blood in Stool Allergies/Adverse Reactions: Allergies Allergy/AdvReac Type Severity Reaction Status Date / Time Codeine Allergy Vomiting Verified 09/27/16 11:43 PMH/Surg Hx/FS Hx/Imm Hx Endocrine/Hematology History: Denies: Hx Diabetes, Hx Thyroid Disease, Hx Anemia Cardiovascular History: Denies: Hx Hypertension, Hx Pacemaker/ICD Respiratory History: Denies: Hx Asthma, Hx Chronic Obstructive Pulmonary Disease (COPD) GI History: Denies: Hx Jaundice, Hx Ulcer History: Reports: Other Problems/Disorders - stress incontinence Denies: Hx Renal Disease Musculoskeletal History: Reports: Hx Osteoporosis - low back Sensory History: Reports: Hx Contacts or Glasses Opthamlomology History: Reports: Hx Contacts or Glasses Neurological History: Reports: Hx Seizures Denies: Hx Headaches Psychiatric History: Denies: Hx Panic Disorder - Cancer History Cancer Type, Location and Year: 10 yrs ago. Right Breast stage 1 Hx Chemotherapy: No Hx Radiation Therapy: Yes - + 5 YRS PILL - Surgical History Surgery Procedure, Year, and Place: Rt LUMPTECOMY -2003. HYSTERECTOMY. PROLAPSED -BLADDER LIFT/SLING -2013. C SECTION. BRAIN TUMOR REMOVAL - [facility] - 2016 Hx Anesthesia Reactions: No Infectious Disease History: No Infectious Disease History: Reports: Hx Hepatitis - as a 18 yr old Denies: Hx Human Immunodeficiency Virus (HIV), Hx Shingles, Hx Tuberculosis, Traveled Outside the [place] in Last 30 Days - Family History Known Family History: Positive: Other - Breast CA - Social History Alcohol Use: Weekly Alcohol Amount: one glass wine 3-4x week Hx Substance Use: No Substance Use Type: Reports: None Hx Tobacco Use: No Smoking Status (MU): Never Smoked Tobacco Review of Systems Positive: Fatigue, Other - Generalized weakness Negative: Palpitations, Chest Pain Negative: Cough Positive: Abdominal Pain - RUQ, Diarrhea, Other - Constipation, decreased appetite Positive: other - Denies blood in stool Neurological: Other - Dizziness All Other Systems Reviewed And Are Negative: Yes Physical Exam - Summary Physical Exam Summary: The patient is well-nourished in no acute distress and in no acute pain. The skin is warm, dry and pale. The skin has decreased turgor. HEENT: The head is normocephalic and atraumatic. Poor eye contact. The pupils are equal and reactive. The conjunctivae are clear and without drainage. Nares are patent and without drainage. Mouth reveals dry mucous membranes and the throat is without erythema and exudate. The external ears are intact. The ear canals are patent and without drainage. The tympanic membranes are intact. Neck is supple with full range of motion and non-tender. There are no carotid bruits. There is no neck vein distension. Respiratory: Chest is non-tender. Lungs are clear to auscultation and breath sounds are symmetrical and equal. Cardiovascular: Hear is regular rate and rhythm. There is no murmur or rub auscultated. There is no peripheral edema and pulses are symmetrical and equal. Abdomen: The abdomen is soft. Pain in the RUQ. There are normal bowel sounds heard in all four quadrants and there is no organomegaly palpated. Musculoskeletal: There is no back pain noted. Extremities are non-tender with full range of motion. There is good capillary refill. There is no peripheral edema or calf tenderness elicited. Neurological: Patient is alert and oriented to person, place and time. The patient has symmetrical motor strength in all four extremities. Cranial nerves are grossly intact. Deep tendon reflexes are symmetrical and equal in all four extremities. Psychiatric: The patient has an appropriate affect and does not exhibit anxiety , with slight depression. Triage Information Reviewed: Yes Vital Signs On Initial Exam: Initial Vitals Temp Pulse Resp BP Pulse Ox 97.6 F 92 20 145/59 100 11/29/16 10:27 11/29/16 10:27 11/29/16 10:27 11/29/16 10:27 11/29/16 10:27 Vital Signs Reviewed: Yes - Livan Coma Scale Coma Scale Total: 15 Diagnostics - Vital Signs Vital Signs Temp Pulse Resp BP Pulse Ox 11/29/16 11:06 94 11/29/16 11:00 87 11/29/16 10:42 77 99 11/29/16 10:40 122/75 11/29/16 10:27 97.6 F 92 20 145/59 100 - Laboratory Lab Results: Lab Results 11/29/16 11/29/16 11/29/16 Range/Units 11:45 11:45 12:00 WBC 7.6 (3.5-10.8) 10^3/ul RBC 4.49 (4.0-5.4) 10^6/ul Hgb 14.7 (12.0-16.0) g/dl Hct 43 (35-47) % MCV 95 (80-97) fL MCH 33 H (27-31) pg MCHC 34 (31-36) g/dl RDW 13 (10.5-15) % Plt Count 279 (150-450) 10^3/ul MPV 8 (7.4-10.4) um3 Neut % (Auto) 70.2 (38-83) % Lymph % (Auto) 19.7 L (25-47) % Latimer % (Auto) 8.2 (1-9) % Eos % (Auto) 0.7 (0-6) % Baso % (Auto) 1.2 (0-2) % Absolute Neuts (auto) 5.4 (1.5-7.7) 10^3/ul Absolute Lymphs (auto) 1.5 (1.0-4.8) 10^3/ul Absolute Monos (auto) 0.6 (0-0.8) 10^3/ul Absolute Eos (auto) 0.1 (0-0.6) 10^3/ul Absolute Basos (auto) 0.1 (0-0.2) 10^3/ul Absolute Nucleated RBC 0.01 10^3/ul Nucleated RBC % 0.1 Sodium 136 (133-145) mmol/L Potassium 3.5 (3.5-5.0) mmol/L Chloride 106 (101-111) mmol/L Carbon Dioxide 21 L (22-32) mmol/L Anion Gap 9 (2-11) mmol/L BUN 15 (6-24) mg/dL Creatinine 0.65 (0.51-0.95) mg/dL Est GFR ( Amer) 116.9 (>60) Est GFR (Non-Af Amer) 90.9 (>60) BUN/Creatinine Ratio 23.1 H (8-20) Glucose 140 H (70-100) mg/dL Lactic Acid 0.9 (0.5-2.0) mmol/L Calcium 9.4 (8.6-10.3) mg/dL Total Bilirubin 0.60 (0.2-1.0) mg/dL AST 11 L (13-39) U/L ALT 12 (7-52) U/L Alkaline Phosphatase 56 (34-104) U/L C-Reactive Protein < 1.00 (< 5.00) mg/L Total Protein 6.5 (6.4-8.9) g/dL Albumin 4.0 (3.2-5.2) g/dL Globulin 2.5 (2-4) g/dL Albumin/Globulin Ratio 1.6 (1-3) Amylase 30 (29-103) U/L Lipase 44 (11.0-82.0) U/L Urine Color Urine Appearance Urine pH (5-9) Ur Specific [place] (1.010-1.030) Urine Protein (Negative) Urine Ketones (Negative) Urine Blood (Negative) Urine Nitrate (Negative) Urine Bilirubin (Negative) Urine Urobilinogen (Negative) Ur Leukocyte Esterase (Negative) Urine Glucose (Negative) 11/29/16 Range/Units 12:53 WBC (3.5-10.8) 10^3/ul RBC (4.0-5.4) 10^6/ul Hgb (12.0-16.0) g/dl Hct (35-47) % MCV (80-97) fL MCH (27-31) pg MCHC (31-36) g/dl RDW (10.5-15) % Plt Count (150-450) 10^3/ul MPV (7.4-10.4) um3 Neut % (Auto) (38-83) % Lymph % (Auto) (25-47) % Latimer % (Auto) (1-9) % Eos % (Auto) (0-6) % Baso % (Auto) (0-2) % Absolute Neuts (auto) (1.5-7.7) 10^3/ul Absolute Lymphs (auto) (1.0-4.8) 10^3/ul Absolute Monos (auto) (0-0.8) 10^3/ul Absolute Eos (auto) (0-0.6) 10^3/ul Absolute Basos (auto) (0-0.2) 10^3/ul Absolute Nucleated RBC 10^3/ul Nucleated RBC % Sodium (133-145) mmol/L Potassium (3.5-5.0) mmol/L Chloride (101-111) mmol/L Carbon Dioxide (22-32) mmol/L Anion Gap (2-11) mmol/L BUN (6-24) mg/dL Creatinine (0.51-0.95) mg/dL Est GFR ( Amer) (>60) Est GFR (Non-Af Amer) (>60) BUN/Creatinine Ratio (8-20) Glucose (70-100) mg/dL Lactic Acid (0.5-2.0) mmol/L Calcium (8.6-10.3) mg/dL Total Bilirubin (0.2-1.0) mg/dL AST (13-39) U/L ALT (7-52) U/L Alkaline Phosphatase (34-104) U/L C-Reactive Protein (< 5.00) mg/L Total Protein (6.4-8.9) g/dL Albumin (3.2-5.2) g/dL Globulin (2-4) g/dL Albumin/Globulin Ratio (1-3) Amylase (29-103) U/L Lipase (11.0-82.0) U/L Urine Color Yellow Urine Appearance Clear Urine pH 6.0 (5-9) Ur Specific [place] 1.005 L (1.010-1.030) Urine Protein Negative (Negative) Urine Ketones Negative (Negative) Urine Blood Negative (Negative) Urine Nitrate Negative (Negative) Urine Bilirubin Negative (Negative) Urine Urobilinogen Negative (Negative) Ur Leukocyte Esterase Negative (Negative) Urine Glucose Negative (Negative) Result Diagrams: 11/29/16 12:00 11/29/16 11:45 Lab Statement: Any lab studies that have been ordered have been reviewed, and results considered in the medical decision making process. - CT Brain CT CT Interpretation Completed By: Radiologist - STATUS POST RIGHT TEMPORAL CRANIOTOMY AND POSTSURGICAL CHANGE IN THE RIGHT TEMPORAL LOBE, NO EVIDENCE FOR ACUTE FINDING. - Ultrasound No standard instances Ultrasound Interpretation Completed By: Radiologist - Gallbladder US - 1. CHOLELITHIASIS WITH POSSIBLE IMPACTED CALCULUS IN THE NECK OF THE GALLBLADDER. 2. 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 Re-Evaluation - Re-Evaluation First Eval Re-Evaluation Time: 13:14 Change: Unchanged Comment: C/o confusion, loss of memory and some hand tremors and nervousness. Agrees to Brain CT. Second Eval Re-Evaluation Time: 14:24 Change: Unchanged Comment: Continues to be nauseated and in pain. Thoroughly discussed CT, US and lab results. Will work to get patient admitted for observation. Third Eval Re-Evaluation Time: 15:48 Change: Unchanged Comment: Requests further medication for nausea. Explained that Dr. Otero and Dr. Mendez are coming in to see her. Abdominal Pain Fem Course/Dx - Course Course Of Treatment: Pt is a 65 y/o F with a CC of RUQ abd pain for 4 days. Additionally c/o decreased appetite, generalized weakness, fatigue and dizziness. Dizziness characterized as "feeling like I was going to pass out" and "tippy, off-centered." Reports alternating diarrhea and constipation. Denies blood in stool, palpitations, chest pain and cough. PSHx brain tumor removal in July,. 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 - Diagnoses Differential Diagnosis: Positive: Gall Bladder Disease, Pancreatitis, Renal Colic, Urinary Tract Infection, Other - dehydration, brain mass, intractable nausea Provider Diagnoses: Cholelithiasis, intractable nausea - Provider Notifications Discussed Care Of Patient With: Dr. Oseguera, oncologist, who referred pt to Dr. Otero. Dr. Angela Otero, at 1440, who would like surgery to evaluate pt. Dr. Mendez, at 1445, who will see pt for hydration and a cholecystectomy. Time Discussed With Above Provider: 14:30 Discharge - Discharge Plan Condition: Good Disposition: ADMITTED TO [facility] Referrals: Angela Otero MD [Primary Care Provider] - The documentation as recorded by the Lamar amezcua Rebecca accurately reflects the service I personally performed and the decisions made by , Kwadwo Mccarty MD.
[2016-11-29] MEDS: NS 0.9% 1000 ML* 1,000 ML IV SCH (18:26)
[2016-11-29] MEDS: Ondansetron INJ* 2 MG/ML VIAL IV PRN (20:21)
[2016-11-29] MEDS: Lacosamide TAB* 50 MG TAB PO SCH (20:21)
[2016-11-29] MEDS: clonazePAM TAB(*) 0.5 MG PO PRN (20:22)
--- NOTE | 2016-11-30 00:58 | HP ---
HISTORY AND PHYSICAL: DATE OF ADMISSION: 11/29/16 HISTORY OF PRESENT ILLNESS: Marquita Bo is a 65-year-old woman admitted with nausea, found to be due to cholelithiasis. The patient has a complicated recent past history. She presented with status epilepticus on 06/26/16. At that time, it was not clear what the cause was. It was thought initially that she might have encephalitis. She had an area of inflammation in the right temporal lobe. This persisted on imaging and she was subsequently found on surgical biopsy to have a grade 2 glioma. She underwent surgery at [facility]. She subsequently underwent radiation to the brain having completed her treatment on 11/18/16. Throughout her course since first being diagnosed, she has had persistent nausea. More recently, she has had occasional right upper quadrant pain lasting about a minute occurring anywhere from 1 to 3 times a day. She has had extreme anxiety. She has not had further seizures, but has been tried on several different antiepileptic drugs, initially Keppra, then Depakote, and more recently Vimpat. Despite this, she has had persistent nausea. I scheduled her for an ultrasound of the gallbladder , but it had not been performed yet, was scheduled for 12/03/16. Today, she felt very weak and nauseated, so presented to the ER. An ultrasound was done here and she was found to have gallstones with a gallstone in the neck of her gallbladder. She is being admitted at this time. PAST MEDICAL HISTORY: Otherwise significant for the following medical problems: 1. History of breast cancer. 2. History of gastroesophageal reflux disease. PAST SURGICAL HISTORY: Includes 195, tonsillectomy; 1985, section; 1998, hysterectomy and bilateral oophorectomy; 2003, lumpectomy. OBSTETRICAL HISTORY: 2, para 2. CURRENT MEDICATIONS: 1. Vimpat 50 mg twice daily. 2. Clonazepam 0.25 mg t.i.d. p.r.n. anxiety. 3. Tylenol 500 mg p.r.n. pain. 4. She had been on olanzapine 5 mg daily recently, but that did not seem to help with the anxiety, so had been stopped although she did take one this morning. 5. Docusate 100 mg daily. 6. Ondansetron 4 mg q.4h p.r.n. nausea. She initially had been taking the ODT tablets, but more recently, I had given her the oral tablets because she did not like the taste of the others. 7. Escitalopram 10 mg daily. ALLERGIES: PENICILLIN caused yeast infections in the past (not an allergy). CODEINE caused nausea. FAMILY HISTORY: Mother at age 64 of breast cancer. Father in his 90s. He had bronchiectasis. One sister with history of endometrial cancer. Also is currently being treated for brain tumor. She has a grade 4 glioblastoma. One brother had CAB about 10 years ago, okay now. HABITS: Tobacco: None. ETOH: None recent. SOCIAL AND PERSONAL HISTORY: The patient lives with her in her own home. She has 2 adults sons in the area. Her and her son Peyman are in the emergency room with her today. 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 REVIEW OF SYSTEMS: Generally, she has been feeling terrible. She has been extremely anxious, nauseated. She has been walking around with holding a bucket for months. Her appetite has been okay up until recently and recently, she has lost weight because she is not eating as much. She does not, however, feel that food affects her symptoms. Skin: Negative. HEENT: Negative. Nodes : Negative. Heme: Negative. Endocrine: Negative. Breasts: See above. Respiratory: Negative. Cardiovascular: Negative. GI: See above. She has been taking Colace and has taken occasional MiraLAX, so it has been alternating between constipation and diarrhea. : She has had history of urinary incontinence since her hysterectomy. 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 Musculoskeletal: Negative. Neuro: See above. PHYSICAL EXAMINATION GENERAL: She is a well-developed female, frequently crying. VITAL SIGNS: Blood pressure 145/59, pulse 92, respirations 20, temperature 97.6. SKIN: Warm and dry. HEENT: She has a surgical scar above her right ear with scab over the incision. It does not appear to be inflamed or infected. Full EOMs. Mouth shows coated tongue. NECK: Supple. CHEST: Clear. HEART: Normal S1, S2. There are no murmurs, gallops, or rubs. Pulses are full throughout. ABDOMEN: Soft with mild right upper quadrant, epigastric, and left upper quadrant tenderness. Soft. Normal bowel sounds. No masses or organomegaly. EXTREMITIES: Show no calf tenderness. No edema. NEUROLOGIC: Without gross focal or lateralizing signs. She is alert and oriented. PSYCHIATRIC: She is clearly depressed, anxious, frequently crying. LABORATORY DATA AND DIAGNOSTIC STUDIES: CBC: WBC 7.6, H and H 14.7/43, MCV 95 , PLT 279,000. Chemistries: Sodium 136, potassium 3.5, chloride 106, CO2 21, BUN and creatinine 15/0.65, glucose 140, lactic acid 0.9, calcium 9.4. Rest of comprehensive metabolic panel is within normal limits. CRP is normal at less than 1. Amylase and lipase normal. Urinalysis is unremarkable. CT of the brain done this afternoon shows status post right temporal craniotomy and postsurgical change in the right temporal lobe, no evidence for acute finding. Gallbladder ultrasound shows gallstones with a possible impacted calculus in the neck of the gallbladder and a small hyperechoic lesion in the right kidney most consistent with an angiomyolipoma. This was 1.5 x 1.2 x 1.2 cm and correlates with a fatty density on the prior CT study done on 09/27/16. IMPRESSION: The patient with nausea likely due to gallstones. I have spoken to the surgeon, Dr. Del Mendez. He will be seeing her this afternoon. He plans on surgical removal of the gallbladder. I am admitting her for IV fluids. She will be up ad nini. I am not going to put her on DVT prophylaxis, because I am concerned she could bleed into recently radiated brain tumor. For now, she is being put on a low-fat diet. She will continue IV fluids for now. I will be monitoring her electrolytes. She is a full code. [id number]/[facility] #: [id number] [facility]
--- NOTE | 2016-11-30 01:06 | CONS ---
CC: Dr. Angela Otero; Dr. Aryan Linda; Dr. Pierre Earl; [facility] SURGICAL CONSULTATION REPORT: DATE OF CONSULT: The patient was seen in the emergency room on 11/29/16. HISTORY OF PRESENT ILLNESS: I was contacted by the emergency room and then by Dr. Otero to evalu ate Ms. 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 The patient had these issues last week, was scheduled to have outpatient ultrasound early next week, but presented to the emerge ncy room today because of change in her symptoms. She started having right upper quadrant pain unde rneath the right costal margin. It was minimally radiating. It was worse after eating and it was a ccompanied with her nausea and vomiting that she has been consistently dealing with. Workup in the emergency room has included an ultrasound. This report was reviewed. She has also und ergone labs. She is admitted to the medical service for intractable nausea. PAST MEDICAL HISTORY: Includes brain cancer. PAST SURGICAL HISTORY: , bladder sling, craniotomy, lumpectomy, and sentinel node biopsy. MEDICATIONS: Reviewed. ALLERGIES: She is allergic to CODEINE. FAMILY HISTORY: Noncontributory. SOCIAL HISTORY: Nonsmoker, nondrinker. She is retired from [employer]. REVIEW OF SYSTEMS: No shortness of breath. No chest pain. No significant weight loss or weight ga in. There is somewhat fear of food. The patient is a vegetarian. She denies any jaundice symptoms. Nausea and vomiting as described above. Abdominal pain as described above. No dysuria. No dark-c olored urine. No change in bowel habits; however, the patient does take Colace as needed. No compl ications with anesthesia. No bleeding or clotting disorders. The patient had seizure disorder. Sh e denies any headaches. PHYSICAL EXAM: She is afebrile. Her vital signs are stable. Alert and oriented x3. Somewhat anxi ous. She makes good eye contact. Answers questions appropriately. Head, ears, eyes, nose, and thr oat: Normocephalic, atraumatic. Sclerae are anicteric. Mucous membranes are dry. Neck: No lympha denopathy. Abdomen is soft, nondistended. Minimally tender on deep palpation in the right upper tony drant. Negative Mathis sign. No masses or hernias present. Well-healed surgical incisions. No CV A tenderness. Extremities: Within normal limits with no pitting edema. DIAGNOSTIC STUDIES/LAB DATA: Ultrasound of the gallbladder, report reviewed and is consistent with a stone impacted at the neck of the gallbladder. There is no gallbladder wall thickening or pericho lecystic fluid. Common bile duct measures 0.3 cm and these images were reviewed as well. Labs show normal white count, no left shift. Metabolic panel shows bilirubin of 0.6, is within norm al limits. Urinalysis is normal as well. IMPRESSION: Cholecystitis with impacted gallbladder stone in the neck of the gallbladder. Recommen d surgical intervention and laparoscopic cholecystectomy on this admission. I agree with admission. Nausea control, pain control. We look towards putting the patient on the schedule for Thursday for a laparoscopic cholecystectomy. I outlined the details of the procedure going over the risks, benef its, and alternatives to her and her today and they agreed to proceed. My hope is that this will resolve her persistent nausea and vomiting. Certainly, a very good chance that this is the lucho e. The patient understands that this may not completely resolve the symptoms and she does wish to p roceed in this fashion. This case was discussed with Dr. Angela Otero and this plan as well. [id number]/[facility] #: [id number]
[2016-11-30] MEDS: Acetaminophen TAB* 325 MG PO PRN ×3 (01:56→19:51)
[2016-11-30] MEDS: Ondansetron INJ* 2 MG/ML VIAL IV PRN ×4 (02:37→21:21)
[2016-11-30] MEDS: clonazePAM TAB(*) 0.5 MG PO PRN ×2 (05:58→14:58)
[2016-11-30] MEDS: NS 0.9% 1000 ML* 1,000 ML IV SCH ×2 (05:59→17:09)
[2016-11-30 07:07] LABS: Hematocrit 42 % (35-47); Hemoglobin 14.1 g/dl (12.0-16.0); Mean Corpuscular HGB Conc 34 g/dl (31-36); Mean Corpuscular Hemoglobin 33 pg (27-31); Mean Corpuscular Volume 96 fL (80-97); Mean Platelet Volume 8 um3 (7.4-10.4); Red Blood Count 4.34 10^6/ul (4.0-5.4); Red Cell Distribution Width 13 % (10.5-15); White Blood Count 4.7 10^3/ul (3.5-10.8)
[2016-11-30 07:23] LABS: BUN/Creatinine Ratio 10.9 (8-20); EGFR Non-African American 92.6 (>60); Magnesium 1.9 mg/dL (1.9-2.7); Phosphorus 2.1 mg/dL (2.5-5.0); Potassium 3.4 mmol/L (3.5-5.0)
[2016-11-30] MEDS: Docusate CAP* 100 MG PO SCH (09:04)
[2016-11-30] MEDS: Citalopram TAB* 20 MG PO SCH (09:04)
[2016-11-30] MEDS: Lacosamide TAB* 50 MG TAB PO SCH ×2 (09:04→21:15)
[2016-11-30] MEDS: KCL 20 MEQ/100 ML IVPREMIX* 100 ML BAG IV SCH ×2 (12:30→17:09)
[2016-11-30] MEDS: Potassium & Sodium Phos 250MG* = 1 PACKET PO SCH ×2 (13:22→21:15)
--- NOTE | 2016-11-30 19:48 | PN ---
Progress Note - Progress Note SOAP: Subjective: Pt seen earlier today. Persitent nausea. Some RUQ pain Objective: af vss Assessment: cholecystitis Plan: OR tomorrrow for lap brandee
[2016-12-01] MEDS: clonazePAM TAB(*) 0.5 MG PO PRN ×2 (05:44→20:24)
[2016-12-01 06:34] LABS: BUN/Creatinine Ratio 7.4 (8-20); Calcium 9.5 mg/dL (8.6-10.3); EGFR Non-African American 86.3 (>60); Phosphorus 3.7 mg/dL (2.5-5.0); Potassium 3.8 mmol/L (3.5-5.0)
[2016-12-01] MEDS: Lacosamide TAB* 50 MG TAB PO SCH ×2 (09:07→21:30)
[2016-12-01] MEDS: Citalopram TAB* 20 MG PO SCH (09:08)
[2016-12-01] MEDS: Ondansetron INJ* 2 MG/ML VIAL IV PRN ×3 (09:08→19:45)
[2016-12-01] MEDS: Potassium & Sodium Phos 250MG* = 1 PACKET PO SCH ×3 (09:11→21:30)
[2016-12-01] MEDS: Docusate CAP* 100 MG PO SCH (09:36)
--- NOTE | 2016-12-01 10:45 | PN ---
Progress Note - Progress Note SOAP: Subjective: Reports intermittent nausea, but denies vomiting. Also notes mild epigastric and RUQ pain on and off last night. No fever or chills. Objective: VSS, afebrile Abdomen soft, non-distended. Mild RUQ tenderness with some guarding. No rebound. Labs noted Assessment: A 65 y/o female with persistent nausea and RUQ sonogram consistent with cholecystitis and cholelithiasis. Plan: Patient is scheduled for a laparoscopic cholecystectomy later today. She has been NPO since midnight. Discussed surgery with her and her family in room. She understands and agreed to proceed.
[2016-12-01] MEDS ORDERED: NS 0.9% w/ 20 Meq KCL 1000 ML* 1,000 ML IV SCH (11:00)
[2016-12-01] MEDS ORDERED: Bupivacaine 0.25% EPI 200,000* 30 ML SDV ONE (16:14)
[2016-12-01] MEDS ORDERED: ceFAZolin 2 GM PREMIX(*) 2 GM/50 ML BAG IVPB ONE (16:29)
[2016-12-01] MEDS ORDERED: Lidocaine 2% PF* 5 ML VIAL ONE (16:53)
[2016-12-01] MEDS ORDERED: Propofol* 10 MG/ML 20 ML BTL IV PUSH ONE (16:53)
[2016-12-01] MEDS ORDERED: Rocuronium* 10 MG/ML VIAL ONE (16:55)
[2016-12-01] MEDS ORDERED: fentaNYL* 50 MCG/ML 2 ML VIAL (100 MCG VIAL) ONE ×2 (16:55→19:23)
[2016-12-01] MEDS ORDERED: Glycopyrrolate IV* 0.2 MG/ML 1 ML VIAL ONE (17:45)
[2016-12-01] MEDS ORDERED: Neostigmine Methylsulfate* 2 MG/2 ML SYRINGE ONE (17:45)
--- NOTE | 2016-12-01 18:03 | PN ---
Progress Note - Progress Note Note: Brief procedure note: Pre-op: Nausea, Symptomatic cholelithiasis. Post-op: same Surgery: Laparoscopic cholecystectomy. Surgeon: Wireless Engineer: TIN Sue Charline: KATELIN Anesthesiologist: Dr. Veliz IVF: LR 1000cc Drains: None Catheters: None Specimen: Gallbladder Findings: See dictated op note.
[2016-12-01] MEDS: fentaNYL* 50 MCG/ML 2 ML VIAL (100 MCG VIAL) IV PRN ×3 (19:25→19:35)
[2016-12-01] MEDS: HYDROmorphone* 1 MG/ML 1 ML SYR IV PRN ×2 (19:46→20:54)
[2016-12-02] MEDS: HYDROmorphone* 1 MG/ML 1 ML SYR IV PRN ×2 (02:42→05:26)
[2016-12-02] MEDS: NS 0.9% 1000 ML* 1,000 ML IV SCH ×2 (03:45→14:26)
[2016-12-02 05:45] LABS: Hematocrit 42 % (35-47); Hemoglobin 14.3 g/dl (12.0-16.0); Mean Corpuscular HGB Conc 34 g/dl (31-36); Mean Corpuscular Hemoglobin 33 pg (27-31); Mean Corpuscular Volume 97 fL (80-97); Mean Platelet Volume 8 um3 (7.4-10.4); Red Blood Count 4.32 10^6/ul (4.0-5.4); Red Cell Distribution Width 13 % (10.5-15); White Blood Count 10.7 10^3/ul (3.5-10.8)
[2016-12-02 06:02] LABS: BUN/Creatinine Ratio 8.2 (8-20); Calcium 9.1 mg/dL (8.6-10.3); EGFR African American 125.8 (>60); EGFR Non-African American 97.8 (>60); Potassium 4.4 mmol/L (3.5-5.0)
--- NOTE | 2016-12-02 08:27 | PN ---
Progress Note - Progress Note SOAP: Subjective: Doing well although she is sleepy No nausea Has only been drinking water. Objective: Temp Pulse Resp BP Pulse Ox 97.8 F 72 16 119/56 97 12/02/16 07:50 12/02/16 07:50 12/02/16 07:50 12/02/16 07:50 12/02/16 07:50 Intake & Output 11/30/16 12/01/16 12/02/16 12/03/16 06:59 06:59 06:59 06:59 Intake Total 3362 2413 2068 Output Total 750 1625 1050 200 Balance 2612 788 1018 -200 Weight 120 lb Intake: IV Fluids 2922 1872 1868 NS (0.9%) 1872 1168 lr 700 IVPB 116 KCL 50 NS (0.9%) 66 Oral 440 425 200 Output: Urine 750 1625 1000 200 Estimated Blood Loss 50 Other: Estimated Void Medium Small Small # Voids 4 3 2 PEX: Comfortable Abd is soft and non-distended Bowel sounds are present Incisions are CDI Labs noted Assessment: POD# 1 s/p lap choly for cholelithiasis Doing well Plan: Advance diet as tolerated.
[2016-12-02] MEDS: Docusate CAP* 100 MG PO SCH (09:24)
[2016-12-02] MEDS: Lacosamide TAB* 50 MG TAB PO SCH ×2 (09:24→20:26)
[2016-12-02] MEDS: Citalopram TAB* 20 MG PO SCH (09:24)
[2016-12-02] MEDS: oxyCODONE/Acetamin 5/325 MG* TAB PO PRN ×3 (09:24→16:54)
[2016-12-02] MEDS: Potassium & Sodium Phos 250MG* = 1 PACKET PO SCH ×3 (09:26→20:26)
[2016-12-02] MEDS: Ondansetron INJ* 2 MG/ML VIAL IV PRN ×2 (13:15→20:30)
--- NOTE | 2016-12-02 17:29 | OP ---
DATE OF OPERATION: 12/01/16 - ROOM #340 DATE OF : 46 SURGEON: Phil Jones MD MANAGER OF DIGITAL: TIN Hernandez ANESTHESIOLOGIST: Dr. Josue Campbell. ANESTHESIA: General. PRE-OP DIAGNOSES: 1. Right upper quadrant abdominal pain. 2. Nausea. 3. Cholelithiasis. POST-OP DIAGNOSES: 1. Right upper quadrant abdominal pain. 2. Nausea. 3. Cholelithiasis. OPERATIVE PROCEDURE: Laparoscopic cholecystectomy. INDICATIONS: Ms. Marquita Bo is a 65-year-old woman, who has problems with persistent nausea ever since she underwent a craniotomy for brain tumor several months ago. She has also developed right upper quadrant abdominal discomfort radiating to the back especially worse after eating. An ultrasound has confirmed gallstones without cholecystitis. Her white count was normal with normal liver transaminases and bilirubin. After a long discussion with the patient and her , consideration now is being given to the gallstones as a possibility of her persistent nausea after multiple medicine changes and evaluation for this problem. In addition, she has been having right upper quadrant abdominal pain, which seems to be worse after eating and we are now to proceed with a laparoscopic cholecystectomy. The procedure was discussed with the patient and her . The risks but not limited to bleeding, infection, intraabdominal abscess formation, injury to peritoneal and retroperitoneal structures, possibility of an open procedure, possibility that removing her gallbladder may not improve her symptoms, and she is well aware of this, and after our discussion gives her consent to proceed. ESTIMATED BLOOD LOSS: Minimal. IV FLUIDS: 1 L of crystalloid. SPECIMEN: Gallbladder. URINE OUTPUT: Not recorded. WOUND CLASSIFICATION: Clean, contaminated. COMPLICATIONS: None. DRAINS: None. FINDINGS: Gallbladder was without evidence of acute or chronic inflammation; however, it did contain several marble-sized gallstones. The liver appeared to be unremarkable. DESCRIPTION OF PROCEDURE: Written informed consent was obtained, the abdomen was marked with indelible ink and preoperative antibiotics were administered. The patient was taken to the operating room and placed in the supine position. Sequential compression devices were placed and a warming blanket was applied and general anesthesia was administered. The abdomen was prepped and draped in the usual sterile fashion. Time-out verification was completed. Next, a small transverse incision was made just above the umbilicus at the midline, the peritoneal cavity was entered under direct vision. A 12-mm blunt port was inserted and the abdomen was insufflated to 15 mmHg. Under direct vision, an 11-mm epigastric port was placed and two 5-mm ports were placed in the right side of the abdominal wall. The gallbladder was identified. It was thin walled, bluish in color without evidence of adhesions and showed no sign of acute or chronic inflammation. The liver appeared to be unremarkable. There were really no adhesions intraabdominally. I noticed no other obvious abnormality. The gallbladder was then grasped at the fundus and elevated up over the liver bed. With care along the infundibular area, the peritoneum along the medial and lateral aspects of the gallbladder was taken down to carefully dissect the cystic duct and artery as they entered the gallbladder. There was a posterior branch of the artery extending on to the gallbladder which was also skeletonized and protected from injury. I took a considerable portion of the inferior part of the gallbladder off the liver bed using a critical view technique to assure myself of these structures. The cystic duct was of expected caliber. Arteries and ducts were then doubly clipped and divided. The gallbladder was removed from the liver bed with cautery and brought out through the umbilical incision. The liver bed was then evaluated. There was no evidence of bleeding or bile leak. All ports were removed under direct vision of the camera. There was no abdominal wall bleeding. The umbilical fascia was closed with interrupted 0 Polysorb suture. The skin was approximated with subcuticular 4-0 Polysorb suture at all 4 incisions. Steri- Strips were applied. The patient tolerated the procedure well, was taken to the recovery room in stable condition. CC: [facility]; Dr. Angela Otero* [id number]/[facility] #: [id number] [facility] CENTERJeana
[2016-12-03] MEDS: Ondansetron INJ* 2 MG/ML VIAL IV PRN (03:58)
[2016-12-03] MEDS: clonazePAM TAB(*) 0.5 MG PO PRN ×2 (04:43→13:39)
[2016-12-03] MEDS: oxyCODONE/Acetamin 5/325 MG* TAB PO PRN ×4 (04:44→18:09)
--- NOTE | 2016-12-03 08:50 | PN ---
Progress Note - Progress Note SOAP: Subjective:c/o nausea and abd pain [] Objective:assisted back to bed;abd:bs,soft,incisions intact with steris,no erythema lungs:clear bilat ext:nontender Vital Signs Temp 97.9 F 12/03/16 07:18 Pulse 82 12/03/16 07:18 Resp 18 12/03/16 08:00 BP 133/68 12/03/16 07:18 Pulse Ox 97 12/03/16 08:00 Intake & Output 12/02/16 12/03/16 12/03/16 18:59 06:59 18:59 Intake Total 1158 1300 Output Total 1675 1300 300 Balance -517 0 -300 Intake: IV Fluids 878 NS (0.9%) 878 Oral 280 1300 Output: Urine 1675 1300 300 Other: Estimated Void Small # Bowel Movements 0 # Voids 2 [] Assessment:POD#2 s/p Lap brandee,slow progress [] Plan:NAIN,ambulate,pain and nausea management,home when able []
[2016-12-03] MEDS ORDERED: Ondansetron TAB* 4 MG ONE (09:20)
[2016-12-03] MEDS: Citalopram TAB* 20 MG PO SCH (09:24)
[2016-12-03] MEDS: Docusate CAP* 100 MG PO SCH (09:25)
[2016-12-03] MEDS: Potassium & Sodium Phos 250MG* = 1 PACKET PO SCH ×3 (09:25→21:09)
[2016-12-03] MEDS: Lacosamide TAB* 50 MG TAB PO SCH ×2 (09:32→21:09)
[2016-12-03] MEDS: Ondansetron TAB* 4 MG PO PRN (15:21)
[2016-12-03] MEDS ORDERED: Metoclopramide IV* 5 MG/ML 2 ML VIAL IV PRN (17:53)
[2016-12-03] MEDS: Metoclopramide TAB* 10 MG PO PRN (18:11)
[2016-12-04] MEDS: clonazePAM TAB(*) 0.5 MG PO PRN (05:32)
[2016-12-04] MEDS: Ondansetron TAB* 4 MG PO PRN (05:44)
[2016-12-04 06:41] LABS: Hematocrit 41 % (35-47); Hemoglobin 14.1 g/dl (12.0-16.0); Mean Corpuscular HGB Conc 34 g/dl (31-36); Mean Corpuscular Hemoglobin 33 pg (27-31); Mean Corpuscular Volume 97 fL (80-97); Mean Platelet Volume 8 um3 (7.4-10.4); Red Blood Count 4.24 10^6/ul (4.0-5.4); Red Cell Distribution Width 13 % (10.5-15); White Blood Count 7.2 10^3/ul (3.5-10.8)
[2016-12-04 07:09] LABS: Albumin 3.6 g/dL (3.2-5.2); BUN/Creatinine Ratio 11.3 (8-20); Calcium 9.2 mg/dL (8.6-10.3); EGFR African American 123.5 (>60); Globulin 2.6 g/dL (2-4); Potassium 3.6 mmol/L (3.5-5.0); Total Bilirubin 0.6 mg/dL (0.2-1.0); Total Protein 6.2 g/dL (6.4-8.9)
[2016-12-04 07:47] VITALS: BP 134/77
[2016-12-04] MEDS: Citalopram TAB* 20 MG PO SCH (08:38)
[2016-12-04] MEDS: Potassium & Sodium Phos 250MG* = 1 PACKET PO SCH (08:38)
[2016-12-04] MEDS: Docusate CAP* 100 MG PO SCH (08:38)
--- NOTE | 2016-12-04 08:46 | PN ---
Progress Note - Progress Note SOAP: Subjective: Pain is much improved and she is ready to go home She is tolerating liquids-still with some nausea but no vomiting She is passing flatus Objective: Temp Pulse Resp BP Pulse Ox 98.0 F 87 17 134/77 98 12/04/16 07:40 12/04/16 07:40 12/04/16 07:40 12/04/16 07:40 12/04/16 07:40 Intake & Output 12/02/16 12/03/16 12/04/16 12/05/16 06:59 06:59 06:59 06:59 Intake Total 2068 2458 1520 Output Total 1050 2975 1925 Balance 1018 -517 -405 Intake: IV Fluids 1868 878 NS (0.9%) 1168 878 lr 700 Oral 200 1580 1520 Output: Urine 1000 2975 1925 Estimated Blood Loss 50 Other: Estimated Void Small Small # Bowel Movements 0 # Voids 3 2 PEX: ABd is soft and non-distended. Bowel sounds are present and normoactive Incisions are clean and dry Assessment: POD# 3 s/p lap choly Pain improved and she is tolerating liquids Plan: D/C home today Follow up in office next week
[2016-12-04] MEDS: Metoclopramide TAB* 10 MG PO PRN (09:02)
[2016-12-04] MEDS: Lacosamide TAB* 50 MG TAB PO SCH (09:10)
--- NOTE | 2016-12-05 01:08 | DS ---
DISCHARGE SUMMARY: DATE OF ADMISSION: 11/29/16 DATE OF DISCHARGE: 12/04/16 DISCHARGE DIAGNOSES: 1. Cholelithiasis. 2. History of glioma grade 2, status post surgery and radiation. 3. Chronic nausea. 4. History of breast cancer. 5. History of gastroesophageal reflux disease. 6. Anxiety and depression. 7. 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 HISTORY: Marquita Bo is a 65-year-old woman admitted with nausea and found to have cholelithiasis. Please see the dictated admission history and physical for details of the present illness, past medical history, family history, social and personal history, review of systems, and physical examination. LABORATORY DATA: CBC on admission: WBC 7.6, H and H 14.7/43, MCV 95, PLT 279, 000. CBC remained relatively stable. On 12/04/16, WBC was 7.2, H and H 14.1/41 , MCV 97, PLT 212,000. Chemistries on 11/29/16, sodium 136, potassium 2.5, chloride 106, CO2 21, BUN and creatinine 15/0.65, glucose 140. Rest of the comprehensive metabolic panel was within normal limits. Amylase and lipase were normal. CRP was less than 1. Chemistries: Potassium went down as low as 3.4 on 11/30/16, phosphorus was slightly low at 2.1 on 11/30/16, came up to 3.7 on 12/01/16. Chemistries prior to discharge; sodium 138, potassium 3.6, chloride of 104, CO2 27, BUN and creatinine 7 and 0.62, glucose 110. Calcium 9.2. Comprehensive metabolic panel was otherwise within normal limits except for a total protein of 6.2. Urinalysis on 11/29/16, yellow clear, specific gravity 1.005, pH 6, dipsticks negative, hepatitis C antibody was nonreactive. IMAGING: Gallbladder ultrasound on 11/29/16 showed cholelithiasis with an impacted calculus in the neck of the gallbladder, small hyperechoic lesion in the right kidney, most consistent with an angiomyolipoma, which has been seen on a previous CT on 09/27/16. Pathology report on 12/01/16 showed chronic cholecystitis with cholelithiasis. Consultation note, Dr. Mendez, Surgery , felt that the patient had cholecystitis with an impacted gallbladder stone in the neck of the gallbladder and recommended surgical intervention, laparoscopic cholecystectomy. HOSPITAL COURSE: The patient was admitted. Her nausea was felt to be likely due to gallstones. She was placed on low fat diet, IV fluids. She was full code. DVT prophylaxis with heparin was not used because of her brain tumor. She was ambulatory. Dr. Phil Jones performed a cholecystectomy on her on 12/01/16. She tolerated the surgery well. Unfortunately she remained nauseated after the surgery. She also had constipation. She was able to eat. Medications used for nausea were ondansetron and metoclopramide. Percocet was used for pain. It was felt that this could also have contributed to the nausea. She did receive phosphorus replacement with Nutra-phos. Stool softener was docusate. At the time of discharge, she is being discharged home. On her way home, she has a neurology appointment with Dr. Jaimes. DISCHARGE DIET: Resume regular diet. DISCHARGE MEDICATIONS: 1. Percocet 1 to 2 every 6 hours as needed for pain, not to exceed 6 a day. 2. Clonazepam 0.25 mg 3 times daily as needed. 3. Docusate 100 mg every day. 4. Acetaminophen 500 mg every 6 hours as needed. 5. Ondansetron 4 mg every 6 hours as needed. 6. Olanzapine 5 mg every day (of note she is actually not taking this anymore, so this will have to be clarified with her). 7. Vimpat 50 mg twice daily. 8. Escitalopram 10 mg every day. FOLLOWUP: She will follow up with me, Dr. Angela Otero, and with [facility]. I should see her within the next week. The nurses will be checking with the patient regarding her bowel movements later today. CC: Dr. Linda; Dr. Jaimes; Dr. Jones* [id number]/[facility] #: [id number] MTDD
== END 2016-12-04 09:10 | disposition home or self-care (01) | DRG 418 ==
LOC: ED 10:24 → SSU 16:40
PROVIDERS: ADMIT Internal Medicine Geriatric Medicine; ATTEND Internal Medicine Geriatric Medicine
PROC: 0FT44ZZ Resection of Gallbladder, Percutaneous Endoscopic Approach (ICD-10-PCS; principal; 2016-12-01 15:15)
DX: K80.10 Calculus of gallbladder with chronic cholecystitis without obstruction (principal); C79.31 Secondary malignant neoplasm of brain; E83.39 Other disorders of phosphorus metabolism; K80.20 Calculus of gallbladder without cholecystitis without obstruction; N39.3 Stress incontinence (female) (male); M81.0 Age-related osteoporosis without current pathological fracture; F41.9 Anxiety disorder, unspecified; K21.9 Gastro-esophageal reflux disease without esophagitis; E87.6 Hypokalemia; R11.0 Nausea; G40.909 Epilepsy, unspecified, not intractable, without status epilepticus; K59.00 Constipation, unspecified; T39.1X5A Adverse effect of 4-Aminophenol derivatives, initial encounter; T40.2X5A Adverse effect of other opioids, initial encounter; Z92.3 Personal history of irradiation; Z88.5 Allergy status to narcotic agent; Z85.3 Personal history of malignant neoplasm of breast; Z90.710 Acquired absence of both cervix and uterus; Z80.3 Family history of malignant neoplasm of breast; Z72.89 Other problems related to lifestyle; Z90.722 Acquired absence of ovaries, bilateral; Z88.0 Allergy status to penicillin; Z80.49 Family history of malignant neoplasm of other genital organs; Z80.8 Family history of malignant neoplasm of other organs or systems; Z83.6 Family history of other diseases of the respiratory system
CPT/HCPCS: 36415; 70450; 76705; 80048; 80053; 81003; 82150; 83605; 83690; 83735; 84100; 85025; 85027; 86140; 86803; 88304; 94760; A9270-GY; J0690; J1170; J2405; J2704; J3010; J3480

== ENCOUNTER 2016-12-06 12:58 | Emergency (ER) | payer MEDICARE ==
[2016-12-06] MEDS ORDERED: NS 0.9% 1000 ML* 1,000 ML IV ONE ×2 (14:09→14:11)
[2016-12-06] MEDS ORDERED: LORazepam INJ* 2 MG/ML 1 ML VIAL IV PUSH ONE ×2 (14:11→15:31)
--- NOTE | 2016-12-06 14:51 | RAD ---
INDICATION: Altered mental status COMPARISON: CT brain November 29, 2016 TECHNIQUE: Noncontrast axial source images were acquired from the skull base to the vertex. FINDINGS: Ventricles/sulci: The ventricles and cisterns are normal in size and configuration for age. Brain parenchyma: There is no acute focal parenchymal finding, evidence of intracranial mass, or intracranial mass effect. There are postsurgical changes in the right temporal lobe Intracranial hemorrhage:None. Extra-axial spaces: There are no abnormal extra axial fluid collections or evidence of extra-axial mass. Calvarium: Right temporal craniotomy defect. Scalp: There is no evidence of scalp or extracalvarial soft tissue abnormality. Paranasal sinuses/mastoid: The paranasal sinuses and mastoid air cells are clear. Other: None. IMPRESSION: Postsurgical changes right temporal region with craniotomy. No acute findings
[2016-12-06 15:34] LABS: Hematocrit 46 % (35-47); Hemoglobin 15.9 g/dl (12.0-16.0); Mean Corpuscular HGB Conc 35 g/dl (31-36); Mean Corpuscular Hemoglobin 33 pg (27-31); Mean Corpuscular Volume 95 fL (80-97); Mean Platelet Volume 8 um3 (7.4-10.4); Red Blood Count 4.86 10^6/ul (4.0-5.4); Red Cell Distribution Width 13 % (10.5-15)
[2016-12-06 15:47] LABS: ALT 15 U/L (7-52); Albumin 4.3 g/dL (3.2-5.2); Alkaline Phosphatase 62 U/L (34-104); BUN/Creatinine Ratio 14.5 (8-20); Blood Urea Nitrogen 10 mg/dL (6-24); CO2 Carbon Dioxide 22 mmol/L (22-32); Calcium 9.8 mg/dL (8.6-10.3); Chloride 102 mmol/L (101-111); EGFR African American 109.1 (>60); EGFR Non-African American 84.9 (>60); Globulin 3.2 g/dL (2-4); Glucose 102 mg/dL (70-100); Lipase 31 U/L (11.0-82.0); Sodium 137 mmol/L (133-145); Total Protein 7.5 g/dL (6.4-8.9)
[2016-12-06 15:56] LABS: TSH (Thyroid Stimulating Horm) 1.34 mcIU/mL (0.34-5.60)
[2016-12-06] MEDS ORDERED: LORazepam TAB(*) 1 MG PO ONE (18:42)
--- NOTE | 2016-12-06 18:49 | ED ---
Susan Sharp Erika, scribed for Maryam Dowell MD on 12/06/16 at 1412 . GI/ HPI - HPI Summary HPI Summary: Patient is a 65-year-old female presenting to the ED with a CC of chronic nausea. Patient reports that she has had chronic nausea and anxiety since she had a craniotomy on August 19, 2016. She reports that she has never taken Ativan, but does take Klonopin for anxiety, which slightly helps symptoms. Nausea is not alleviated by zofran. Pt reports she previously declined medical marijuana. Patient states she had a cholecystectomy on 12/01/2016, which did not alleviate the nausea. She does note some sharp pain at her surgical sites. Patient also reports some confusion since the surgery, noting that she did not know where she was today when she first arrived at the hospital. Patient has a Hx brain CA. She states she completed 30 treatments of radiation, finishing on 11/18/2016. She has not had chemotherapy. Patient is followed by Dr. Linda for oncology, and Dr. Angela Otero is her PCP. Patient lives with her , and does not smoke or drink. - History of Current Complaint Chief Complaint: EDNauseaVomitDiarrh Time Seen by Provider: 12/06/16 13:43 Stated Complaint: SX-5DAYS /CONFUSSION Hx Obtained From: Patient Onset/Duration: Started Weeks Ago - months ago, Atraumatic, Still Present Timing: Constant Severity: Moderate Pain Intensity: 4 Location of Pain: RUQ - at surgical sites Associated Signs and Symptoms: Positive: Nausea, Other: - anxiety, confusion Aggravating Factor(s): Nothing Alleviating Factor(s): Nothing - Additional Pertinent History Primary Care Physician: [id number] - Allergy/Home Medications Allergies/Adverse Reactions: Allergies Allergy/AdvReac Type Severity Reaction Status Date / Time Codeine Allergy Vomiting Verified 09/27/16 11:43 PMH/Surg Hx/FS Hx/Imm Hx Endocrine/Hematology History: Denies: Hx Diabetes, Hx Thyroid Disease, Hx Anemia Cardiovascular History: Denies: Hx Hypertension, Hx Pacemaker/ICD Respiratory History: Denies: Hx Asthma, Hx Chronic Obstructive Pulmonary Disease (COPD) GI History: Reports: Hx Gall Bladder Disease Denies: Hx Jaundice, Hx Ulcer History: Reports: Other Problems/Disorders - stress incontinence Denies: Hx Renal Disease Musculoskeletal History: Reports: Hx Osteoporosis - low back Sensory History: Denies: Hx Hearing Aid Opthamlomology History: Reports: Hx Contacts or Glasses Neurological History: Reports: Hx Seizures Denies: Hx Headaches Psychiatric History: Reports: Hx Anxiety - since brain surgery in jul 2016, Hx Depression Denies: Hx Panic Disorder - Cancer History Cancer Type, Location and Year: 12 yrs ago. Right Breast stage 1 Hx Chemotherapy: No Hx Radiation Therapy: Yes - hormone therapy for 5 years - Surgical History Surgery Procedure, Year, and Place: Rt LUMPTECOMY -2003. HYSTERECTOMY. PROLAPSED -BLADDER LIFT/SLING -2013. C SECTION. BRAIN TUMOR REMOVAL - [facility] - 2015 Hx Anesthesia Reactions: No Infectious Disease History: No Infectious Disease History: Reports: Hx Hepatitis - as a 18 yr old Denies: Hx Human Immunodeficiency Virus (HIV), Hx Shingles, Hx Tuberculosis, Traveled Outside the in Last 30 Days - Family History Known Family History: Positive: Other - Breast CA - Social History Occupation: Retired Lives: With Family Alcohol Use: None Hx Substance Use: No Substance Use Type: Reports: None Hx Tobacco Use: No Smoking Status (MU): Never Smoked Tobacco Review of Systems Positive: Nausea Skin: Other - pain at cholecystectomy surgical sites Neurological: Other - confusion Positive: Anxious All Other Systems Reviewed And Are Negative: Yes Physical Exam Triage Information Reviewed: Yes Vital Signs On Initial Exam: Initial Vitals Temp Pulse Resp BP Pulse Ox 98.0 F 92 18 131/81 100 12/06/16 13:05 12/06/16 13:05 12/06/16 13:05 12/06/16 13:05 12/06/16 13:05 Vital Signs Reviewed: Yes Appearance: Positive: Ill-Appearing - Mildly, Pain Distress - Uncomfortable appearing Skin: Positive: Warm, Skin Color Reflects Adequate Perfusion, Dry, Other - Incisions appears clean, dry, and intact Head/Face: Positive: Other - Shaves head on the right side Eyes: Positive: EOMI, MAURO ENT: Positive: Pharynx normal, TMs normal Neck: Positive: Supple, Nontender Respiratory/Lung Sounds: Positive: Clear to Auscultation, Breath Sounds Present. Negative: Rales, Rhonchi, Wheezes Cardiovascular: Positive: RRR, Other - No gallops. Negative: Murmur, Rub Abdomen Description: Positive: Nontender, Soft, Other: - No rebound. Negative: Distended, Guarding Bowel Sounds: Positive: Present Musculoskeletal: Positive: Other - TANIYA. Negative: Edema Left, Edema Right Neurological: Positive: Sensory/Motor Intact, Alert, Oriented to Person Place, Time, Other - CN II-XII intact Psychiatric: Positive: Affect/Mood Appropriate - Mason Coma Scale Coma Scale Total: 15 Diagnostics - Vital Signs Vital Signs Temp Pulse Resp BP Pulse Ox 12/06/16 13:54 98.0 F 77 15 127/67 98 12/06/16 13:05 98.0 F 92 18 131/81 100 - Laboratory Lab Results: Lab Results 12/06/16 12/06/16 12/06/16 Range/Units 15:24 15:24 15:24 WBC 8.0 (3.5-10.8) 10^3/ul RBC 4.86 (4.0-5.4) 10^6/ul Hgb 15.9 (12.0-16.0) g/dl Hct 46 (35-47) % MCV 95 (80-97) fL MCH 33 H (27-31) pg MCHC 35 (31-36) g/dl RDW 13 (10.5-15) % Plt Count 288 (150-450) 10^3/ul MPV 8 (7.4-10.4) um3 Neut % (Auto) 71.4 (38-83) % Lymph % (Auto) 20.6 L (25-47) % [place] % (Auto) 6.9 (1-9) % Eos % (Auto) 0.4 (0-6) % Baso % (Auto) 0.7 (0-2) % Absolute Neuts (auto) 5.7 (1.5-7.7) 10^3/ul Absolute Lymphs (auto) 1.6 (1.0-4.8) 10^3/ul Absolute Monos (auto) 0.5 (0-0.8) 10^3/ul Absolute Eos (auto) 0 (0-0.6) 10^3/ul Absolute Basos (auto) 0.1 (0-0.2) 10^3/ul Absolute Nucleated RBC 0.01 10^3/ul Nucleated RBC % 0.1 Sodium 137 (133-145) mmol/L Potassium TNP Chloride 102 (101-111) mmol/L Carbon Dioxide 22 (22-32) mmol/L Anion Gap TNP BUN 10 (6-24) mg/dL Creatinine 0.69 (0.51-0.95) mg/dL Est GFR ( Amer) 109.1 (>60) Est GFR (Non-Af Amer) 84.9 (>60) BUN/Creatinine Ratio 14.5 (8-20) Glucose 102 H (70-100) mg/dL Lactic Acid 2.0 (0.5-2.0) mmol/L Calcium 9.8 (8.6-10.3) mg/dL Magnesium TNP Total Bilirubin 0.60 (0.2-1.0) mg/dL AST TNP ALT 15 (7-52) U/L Alkaline Phosphatase 62 (34-104) U/L Troponin I 0.00 (<0.04) ng/mL Total Protein 7.5 (6.4-8.9) g/dL Albumin 4.3 (3.2-5.2) g/dL Globulin 3.2 (2-4) g/dL Albumin/Globulin Ratio 1.3 (1-3) Lipase 31 (11.0-82.0) U/L TSH 1.34 (0.34-5.60) mcIU/mL 12/06/16 Range/Units 17:01 WBC (3.5-10.8) 10^3/ul RBC (4.0-5.4) 10^6/ul Hgb (12.0-16.0) g/dl Hct (35-47) % MCV (80-97) fL MCH (27-31) pg MCHC (31-36) g/dl RDW (10.5-15) % Plt Count (150-450) 10^3/ul MPV (7.4-10.4) um3 Neut % (Auto) (38-83) % Lymph % (Auto) (25-47) % [place] % (Auto) (1-9) % Eos % (Auto) (0-6) % Baso % (Auto) (0-2) % Absolute Neuts (auto) (1.5-7.7) 10^3/ul Absolute Lymphs (auto) (1.0-4.8) 10^3/ul Absolute Monos (auto) (0-0.8) 10^3/ul Absolute Eos (auto) (0-0.6) 10^3/ul Absolute Basos (auto) (0-0.2) 10^3/ul Absolute Nucleated RBC 10^3/ul Nucleated RBC % Sodium (133-145) mmol/L Potassium TNP Chloride (101-111) mmol/L Carbon Dioxide (22-32) mmol/L Anion Gap BUN (6-24) mg/dL Creatinine (0.51-0.95) mg/dL Est GFR ( Amer) (>60) Est GFR (Non-Af Amer) (>60) BUN/Creatinine Ratio (8-20) Glucose (70-100) mg/dL Lactic Acid (0.5-2.0) mmol/L Calcium (8.6-10.3) mg/dL Magnesium TNP Total Bilirubin (0.2-1.0) mg/dL AST TNP ALT (7-52) U/L Alkaline Phosphatase (34-104) U/L Troponin I (<0.04) ng/mL Total Protein (6.4-8.9) g/dL Albumin (3.2-5.2) g/dL Globulin (2-4) g/dL Albumin/Globulin Ratio (1-3) Lipase (11.0-82.0) U/L TSH (0.34-5.60) mcIU/mL Result Diagrams: 12/06/16 15:24 12/06/16 17:01 Lab Statement: Any lab studies that have been ordered have been reviewed, and results considered in the medical decision making process. - CT Brain CT CT Interpretation Completed By: Radiologist - IMPRESSION: Postsurgical changes right temporal region with craniotomy. No acute findings - EKG 13:15 Cardiac Rate: NL - at 82 bpm EKG Rhythm: Sinus Rhythm EKG Interpretation: No ST elevation. No Q waves. No PVCs Re-Evaluation - Re-Evaluation First Eval Re-Evaluation Time: 16:17 Change: Improved Comment: Patient is feeling much improved after Ativan. Discussed lab and imaging results with patient Second Eval Re-Evaluation Time: 18:38 Change: Improved Comment: Sleeping comfortably after medications. GIGU Course/Dx - Course Course Of Treatment: 65 yo female with recent craniotomy, choleycystectomy and radiation treatment for an astrocytomy here with recurrent chronic anxiety and nausea. She was given 1mg of ativan with great relief, case was discussed with Dr. Coker who agreed with prn lorazepam on top of her clonazepam for break through symptoms. She was reportedly disoriented but her symptoms were more of severe anxiety that immediately resolved with the meds - Diagnoses Provider Diagnoses: Anxiety - Physician Notifications Discussed Care Of Patient With: Dr. Nicola Coker at 18:39 - recommends Ativan PRN around the clock to cover for breakthrough anxiety Discharge - Discharge Plan Condition: Stable Disposition: HOME Referrals: Angela Otero MD [Primary Care Provider] - The documentation as recorded by the Susan amezcua Erika accurately reflects the service I personally performed and the decisions made by me, Maryam Dowell MD.
[2016-12-06 19:24] VITALS: BP 115/66
== END 2016-12-06 19:26 | disposition home or self-care (01) ==
LOC: ED 12:58
DX: F41.9 Anxiety disorder, unspecified (principal); R11.0 Nausea; R41.0 Disorientation, unspecified
CPT/HCPCS: 36415; 70450; 80053; 83605; 83690; 84443; 84484; 85025; 93005; 96374; 96376; 99284; J2060

== ENCOUNTER 2016-12-10 09:07 | Emergency (ER) | payer MEDICARE ==
[2016-12-10 09:20] VITALS: BP 132/75
[2016-12-10] MEDS ORDERED: NS 0.9% 1000 ML* 1,000 ML IV ONE (09:48)
[2016-12-10] MEDS ORDERED: Ondansetron INJ* 2 MG/ML VIAL IV ONE (09:48)
[2016-12-10] MEDS ORDERED: LORazepam INJ* 2 MG/ML 1 ML VIAL IV PUSH ONE (09:50)
[2016-12-10 10:25] LABS: Hematocrit 47 % (35-47); Hemoglobin 15.8 g/dl (12.0-16.0); Mean Corpuscular HGB Conc 33 g/dl (31-36); Mean Corpuscular Hemoglobin 32 pg (27-31); Mean Corpuscular Volume 95 fL (80-97); Mean Platelet Volume 8 um3 (7.4-10.4); Red Blood Count 4.95 10^6/ul (4.0-5.4); Red Cell Distribution Width 13 % (10.5-15); White Blood Count 15.2 10^3/ul (3.5-10.8)
[2016-12-10 10:43] LABS: Urine Bacteria Absent (Absent); Urine Bilirubin Negative (Negative); Urine Glucose Negative (Negative); Urine Nitrite Negative (Negative)
[2016-12-10] MEDS ORDERED: Ondansetron INJ* 2 MG/ML VIAL ONE (10:46)
[2016-12-10 10:50] LABS: Albumin 4.4 g/dL (3.2-5.2); BUN/Creatinine Ratio 18.8 (8-20); C Reactive Protein 1.7 mg/L (< 5.00); Calcium 10.1 mg/dL (8.6-10.3); EGFR Non-African American 92.6 (>60); Globulin 2.9 g/dL (2-4); Potassium 3.7 mmol/L (3.5-5.0); Total Bilirubin 0.5 mg/dL (0.2-1.0); Total Protein 7.3 g/dL (6.4-8.9)
[2016-12-10] MEDS ORDERED: LORazepam TAB(*) 1 MG PO ONE (13:00)
--- NOTE | 2016-12-11 07:39 | ED ---
Rod Sharp Matthew, scribed for Jose Boland MD on 12/10/16 at 0953 . GI/ HPI - HPI Summary HPI Summary: A 65 y/o female presents to the with chronic nausea. Associated symptoms include anxiety. 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 In July 2016 the patient has brain surgery. After the surgery, the patient has been having severe anxiety and constant nausea, which wont relieve. The patient has been on Zofran without relieve. She also received 30 treatments of radiation that ended November 18, 2016. She has an appointment with GI today at 14:30. The patient saw Dr. Linda on 12/08 and was given saline and dexamethasone. The patient was here on 12/06/16 and was given 1mg of Ativan IV and responded will at that time. - History of Current Complaint Chief Complaint: EDNauseaVomitDiarrh Time Seen by Provider: 12/10/16 09:23 Stated Complaint: MENTAL HEALTH Hx Obtained From: Patient Onset/Duration: Still Present Timing: Constant Severity: Moderate Current Severity: Moderate Associated Signs and Symptoms: Positive: Nausea, Vomiting, Other: - Anxiety - Additional Pertinent History Primary Care Physician: [id number] - Allergy/Home Medications Allergies/Adverse Reactions: Allergies Allergy/AdvReac Type Severity Reaction Status Date / Time Codeine Allergy Vomiting Verified 12/10/16 18:50 Home Medications: Home Medications Escitalopram (NF) [Lexapro (NF)] 10 mg PO DAILY 12/10/16 [History Confirmed 08/16] LORazepam TAB(*) [Ativan 1 MG TAB (*)] 1 mg PO Q8H PRN MDD 3 mg 12/10/16 [ History Confirmed 12/10/16] PMH/Surg Hx/FS Hx/Imm Hx Endocrine/Hematology History: Denies: Hx Diabetes, Hx Thyroid Disease, Hx Anemia Cardiovascular History: Denies: Hx Hypertension, Hx Pacemaker/ICD Respiratory History: Denies: Hx Asthma, Hx Chronic Obstructive Pulmonary Disease (COPD) GI History: Reports: Hx Gall Bladder Disease Denies: Hx Jaundice, Hx Ulcer History: Reports: Other Problems/Disorders - stress incontinence Denies: Hx Renal Disease Musculoskeletal History: Reports: Hx Osteoporosis - low back Sensory History: Reports: Hx Contacts or Glasses Denies: Hx Hearing Aid Opthamlomology History: Reports: Hx Contacts or Glasses Neurological History: Reports: Hx Seizures Denies: Hx Headaches Psychiatric History: Reports: Hx Anxiety - since brain surgery in jul 2016, Hx Depression Denies: Hx Panic Disorder - Cancer History Cancer Type, Location and Year: 12 yrs ago. Right Breast stage 1 Hx Chemotherapy: No Hx Radiation Therapy: Yes - hormone therapy for 5 years - Surgical History Surgery Procedure, Year, and Place: Rt LUMPTECOMY -2003. HYSTERECTOMY. PROLAPSED -BLADDER LIFT/SLING -2013. C SECTION. BRAIN TUMOR REMOVAL - [facility] - 2015 Hx Anesthesia Reactions: No Infectious Disease History: No Infectious Disease History: Reports: Hx Hepatitis - as a 18 yr old Denies: Hx Human Immunodeficiency Virus (HIV), Hx Shingles, Hx Tuberculosis, Traveled Outside the in Last 30 Days - Family History Known Family History: Positive: Other - Breast CA - Social History Alcohol Use: None Alcohol Amount: one glass wine 3-4x week Hx Substance Use: No Substance Use Type: Reports: None Hx Tobacco Use: No Smoking Status (MU): Never Smoked Tobacco Review of Systems Constitutional: Negative Eyes: Negative ENT: Negative Positive: Palpitations Respiratory: Negative Positive: Vomiting, Nausea Genitourinary: Negative Musculoskeletal: Negative Skin: Negative Neurological: Negative Positive: Anxious All Other Systems Reviewed And Are Negative: Yes Physical Exam - Summary Physical Exam Summary: VITAL SIGNS: Reviewed. GENERAL: Patient is an anxious thin female. Patient is not in any acute respiratory distress. HEAD AND FACE: No signs of trauma. No ecchymosis, hematomas or skull depressions. No sinus tenderness. EYES: PERRLA, EOMI x 2, No injected conjunctiva, no nystagmus. EARS: Hearing grossly intact. Ear canals and tympanic membranes are within normal limits. MOUTH: Oropharynx within normal limits. NECK: Supple, trachea is midline, no adenopathy, no JVD, no carotid bruit, no c- spine tenderness, neck with full ROM. CHEST: Symmetric, no tenderness at palpation LUNGS: Clear to auscultation bilaterally. No wheezing or crackles. CVS: Regular rate and rhythm, S1 and S2 present, no murmurs or gallops appreciated. ABDOMEN: Soft, non-tender. No signs of distention. No rebound no guarding, and no masses palpated. Bowel sounds are normal. EXTREMITIES: FROM in all major joints, no edema, no cyanosis or clubbing. NEURO: Alert and oriented x 3. No acute neurological deficits. Speech is normal and follows commands. SKIN: Dry and warm PSYCH: Anxious, denies any suicidal thoughts or plan. No homicidal thoughts or plan. No signs of psychosis or pressure speech. No tangential speech. Triage Information Reviewed: Yes Vital Signs On Initial Exam: Initial Vitals Temp Pulse Resp BP Pulse Ox 97.8 F 80 16 132/75 100 12/10/16 09:13 12/10/16 09:13 12/10/16 09:13 12/10/16 09:13 12/10/16 09:13 Vital Signs Reviewed: Yes Diagnostics - Vital Signs Vital Signs Temp Pulse Resp BP Pulse Ox 12/10/16 09:13 97.8 F 80 16 132/75 100 - Laboratory Lab Results: Lab Results 12/10/16 Range/Units 10:15 WBC 15.2 H (3.5-10.8) 10^3/ul RBC 4.95 (4.0-5.4) 10^6/ul Hgb 15.8 (12.0-16.0) g/dl Hct 47 (35-47) % MCV 95 (80-97) fL MCH 32 H (27-31) pg MCHC 33 (31-36) g/dl RDW 13 (10.5-15) % Plt Count 290 (150-450) 10^3/ul MPV 8 (7.4-10.4) um3 Neut % (Auto) 90.2 H (38-83) % Lymph % (Auto) 6.5 L (25-47) % Troup % (Auto) 2.5 (1-9) % Eos % (Auto) 0.1 (0-6) % Baso % (Auto) 0.7 (0-2) % Absolute Neuts (auto) 13.8 H (1.5-7.7) 10^3/ul Absolute Lymphs (auto) 1.0 (1.0-4.8) 10^3/ul Absolute Monos (auto) 0.4 (0-0.8) 10^3/ul Absolute Eos (auto) 0 (0-0.6) 10^3/ul Absolute Basos (auto) 0.1 (0-0.2) 10^3/ul Absolute Nucleated RBC 0 10^3/ul Nucleated RBC % 0 Result Diagrams: 12/10/16 10:15 12/10/16 10:15 Lab Statement: Any lab studies that have been ordered have been reviewed, and results considered in the medical decision making process. - EKG 10:50 Cardiac Rate: NL - 60 bpm EKG Rhythm: Sinus Rhythm EKG Interpretation: No ST elevation GIGU Course/Dx - Course Assessment/Plan: A 65 y/o female presents to the with chronic nausea. Associated symptoms include anxiety. 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 In July 2016 the patient has brain surgery. After the surgery, the patient has been having severe anxiety and constant nausea, which wont relieve. The patient has been on Zofran without relieve. She also received 30 treatments of radiation that ended November 18, 2016. She has an appointment with GI today at 14:30. The patient saw Dr. Linda on 12/08 and was given saline and dexamethasone. The patient was here on 12/06/16 and was given 1mg of Ativan IV and responded will at that time. Blood work WNL except WBC of 15.2, glucose 118, lactic acid of 2.3, and urinalysis without UTI. IN the ED course, the patient was given IV fluids, Zofran for nausea, and Ativan for anxiety. The patient has been seen approximately 4-5 times for the same conditions. She reports that Ativan was working well for her; however, in the last 3-4 days shes more anxiety than ever. In the ED course she was hydrated and given Ativan for her anxiety. I discussed the case with DR. Liz Otero who is the PCP for this patient and she requested to do a MHE. Therefore, the patient is clear for MHE and she is awaiting MHE. Dr. Villasenor from psychiatry assessed the patient and feels the patient can be discharged home with outpatient follow-up. He discussed the case with Dr. Linda and they agreed the patient can be treated as an outpatient. She was discharged from the FLEX unit home with PCP follow-up as well as with GI. - Diagnoses Differential Diagnoses - Female: Other - Anxious, Depression, Nausea Provider Diagnoses: Anxiety, Chronic nausea Discharge - Discharge Plan Condition: Stable Disposition: HOME Referrals: Angela Otero MD [Primary Care Provider] - The documentation as recorded by the scribRod kirkpatrick Matthew accurately reflects the service I personally performed and the decisions made by me, Jose Boland MD.
== END 2016-12-10 18:06 | disposition home or self-care (01) ==
LOC: ED 09:07
DX: F41.9 Anxiety disorder, unspecified (principal); R11.0 Nausea; Z88.5 Allergy status to narcotic agent
CPT/HCPCS: 36415; 80053; 81003; 81015; 82150; 83605; 83690; 83880; 85025; 86140; 87086; 93005; 96360; 96374; 96375; 99284; A9270-GY; J2060; J2405

== ENCOUNTER 2016-12-10 17:45 | Inpatient (IN) | payer MEDICARE ==
[2016-12-10] MEDS ORDERED: Acetaminophen TAB* 325 MG PO PRN (19:33)
[2016-12-10] MEDS ORDERED: Al Hydrox/Mg Hydrox/Simet LIQ* 30 ML UDC PO PRN (19:33)
[2016-12-10] MEDS ORDERED: Docusate CAP* 100 MG PO PRN (19:35)
[2016-12-10] MEDS ORDERED: LORazepam TAB(*) 1 MG PO PRN (19:35)
[2016-12-10] MEDS: LACOSAMIDE 50 MG PO SCH (21:38)
[2016-12-11] MEDS: Ondansetron TAB* 4 MG PO PRN ×4 (04:04→19:32)
[2016-12-11] MEDS: clonazePAM TAB(*) 0.5 MG PO PRN ×3 (04:33→15:52)
[2016-12-11] MEDS: Vitamin THERAPEUTIC TAB PO SCH (08:42)
[2016-12-11] MEDS: Citalopram TAB* 20 MG PO SCH (08:42)
[2016-12-11] MEDS: LACOSAMIDE 50 MG PO SCH ×2 (09:17→20:53)
--- NOTE | 2016-12-11 12:18 | HP ---
PSYCHIATRIC ADMISSION HISTORY AND PHYSICAL: IDENTIFYING DATA: Marquita Bo is a 65-year-old female with a history of brain cancer and [employer] outpatient psychological counseling, who was admitted to the Psychiatric Unit on a voluntary basis after presenting to the emergency room twice in one day, with complaint of unmanageable mood dysregulation and anxiety. HISTORY OF PRESENT ILLNESS: My information sources are interview with Ms. Bo and her , review of the emergency room evaluation, and case discussions with Dr. Aryan Linda and Dr. Angela Otero. Ms. Bo's difficulties started about 1-1/2 years ago when she presented with status epilepticus and was diagnosed with brain cancer. She says it has been a horrible journey since then with surgeries and unmanageable symptoms. Dr. Otero also reports that she has had cognitive effects and clearly some organic effects influencing her mood, behavior and functioning. In the emergency room she was evaluated with unmanageable anxiety and sadness. Her has apparently been under enormous strain and himself is emotionally exhausted. Dr. Linda and Dr. Otero indicated that adequate psychosocial supports and case management is in place, but they were of the opinion that further psychiatric intervention is needed, although Marquita requested discharge today and does not want to be in the Psychiatric Unit, Dr. Otero was supportive of retaining her further for any potential benefit or at a minimum to give her who is experiencing caregiver burnout a little respite. Ms. Bo demonstrates an unregulated emotional lability. She says she can cry at any moment and during the course of our interview is extensively lamenting emotionally, without tears, her situation. At other times she is calm and collected, and speaking with rather stable affect. She denies any suicidal ideation and denies perceptual disturbances, but recognizes problems with orientation and memory. She has had multiple recent medication changes, apparently Zyprexa was stopped and she was treated with a trial of Decadron for nausea. Dr. Otero was of the opinion that Decadron may have made her emotional lability worse, her agreed. Marquita has been on different anticonvulsants, from Keppra, to Depakote, to Vimpat - without overt mood effects. Ativan was started this week - I educated pt. and on it's potential deliriogenic effect and possible contribution to mood swings. With regard to depression symptoms she endorsed decreasing energy and appetite, and has had apparent weight loss. She reported less effective sleep with increased quantity. PREVIOUS PSYCHIATRIC HISTORY: Has had [employer] psychological counseling in the private practice of [facility]. Has medication trial with Lexapro in the community. Made developmental milestones on time. Did not have childhood behavioral problems or any pattern over the past 50 years of lemuel anxiety syndromes or major mood episodes. The difficulties have all been pursuant to her cancer diagnosis, condition and treatment. She denies any history of suicidal behavior or self harm. MEDICAL HISTORY: Brain cancer. DRUG ALLERGIES: CODEINE. CURRENT MEDICATION REGIMEN: 1. Lexapro 10 mg a day. 2. Colace 100 mg a day. 3. Tylenol on a p.r.n. basis for pain. 4. Lorazepam 1 mg p.o. every 8 hours p.r.n. anxiety. 5. Zofran 4 to 8 mg each 4 hours for nausea. 6. Vimpat 50 mg b.i.d. 7. Klonopin 0.25 mg t.i.d. p.r.n. anxiety. FAMILY PSYCHIATRIC HISTORY: Denied illnesses or suicidal behavior in the family. SOCIAL HISTORY: From the [facility]. Parents are . She has been for over 30 years. She has 2 adult sons, no grandchildren. She is educated through college. MENTAL STATUS EXAMINATION: Late middle aged female who initially is lying in the hospital bed, but who is alert and arousable, and sits up. She is alert and oriented x3 knowing the exact date and the context of our meeting. She had normal psychomotor activity, maintained good eye contact. She was regressed emotionally, labile, fearful at times. Speech is spontaneous and unpressured. Mood is described as "awful". Affect is very labile, it is neutral at time and then very dysphoric. Though process is meandering, it is goal directed. Thought content negative for suicidal, homicidal or paranoid ideation. Sensorium is clear. Insight and judgment is fair to poor. Impulse control is intact. PHYSICAL ASSESSMENT: Vital signs: Temperature 97.6. Blood pressure 150/76. Pulse 77. Respiratory rate 16. ADMISSION LABORATORY STUDIES: CBC had white blood count of 15.2, MCH of 32, 90.2% neutrophils, 6.5% lymphocytes and 13.8 absolute neutrophils. Comprehensive panel had glucose of 118, lactic acid of 2.3, urinalysis had trace leukocyte esterase, squamous epithelial cells and elevated ascorbic acid. REVIEW OF SYSTEMS: Negative for seizures or other neurological problems. Negative for respiratory difficulties, chest pain, syncope. Reports subacute or chronic nausea which is unremitting. Denies vomiting. Denies other elimination symptoms. Denies musculoskeletal problems or skin problems. PHYSICAL EXAMINATION Juárez declined physical examination citing recent evaluation by Dr. Otero and lack of subjective need. This is a reasonable refusal and does not require followup. She is medically stable for psychiatric hospitalization. CLINICAL SUMMARY: First psychiatric hospitalization for a 65-year-old female with a history of brain cancer and resultant cognitive symptoms, and associated increase in emotional lability. Subacutely she has been treated with benzodiazepines in substantial doses, has also received a trial of steroids which appear to be increasing her emotional dysregulation. That is the primary symptom and I do not see evidence of marked somatic arousal with anxiety, rather perseverative worry pattern. She has aspects of "psudobulbar affect" where involuntary emotional episodes are seen in patients with some organic brain condition. In this syndrome, it's important to educate caregivers that it is an involuntary syndrome that is distinct from depression. She has merited psychiatric hospitalization on a voluntary basis. It is not clear she will benefit from the structured milieu here and is expressing some distress with her retention in the unit. Therefore, it may be appropriate to make the hospitalization brief. Additional benefit of her hospitalization is some caregiver respite. ADMISSION DIAGNOSES: 1. Mood disorder not otherwise specified. 2. Rule out medication adverse effect (steroids and benzodiazepines). 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 4. Anxiety state not otherwise specified. TREATMENT PLAN: Voluntary admission to Psychiatric Unit. Code status full. Safety checks at 15 minute intervals. Initial comprehensive group milieu and individual psychotherapeutic supports. Medication management to continue with the outpatient medication regimen but will try to "undo" the changes that my be making things worse. We'll curtail and try to reduce benzodiazepines as they are going to cause negative adverse effect with a vulnerable brain already, will restart Zyprexa, and will hold Decadron. Estimated length of stay of 2 days. Patient strengths are her adequate baseline health and her supportive network around her. Good premorbid functioning. Target symptoms of worry, dysphoria, mood lability, impaired coping. Discharge planning to involve coordination with appropriate aftercare. [id number]/[facility] #: [id number] MTDD
[2016-12-11] MEDS ORDERED: OLANzapine TAB* 5 MG PO SCH (21:00)
[2016-12-12 08:06] VITALS: BP 99/63
[2016-12-12] MEDS: Citalopram TAB* 20 MG PO SCH (08:45)
[2016-12-12] MEDS: Vitamin THERAPEUTIC TAB PO SCH (08:45)
[2016-12-12] MEDS: Ondansetron TAB* 4 MG PO PRN (08:45)
[2016-12-12] MEDS: LACOSAMIDE 50 MG PO SCH (08:46)
--- NOTE | 2016-12-12 11:24 | DS ---
Subjective - Subjective Service Types: [id number] Hosp HI Day Mgmt simple under 30 min Discharge Date: 12/12/16 Subjective: Marquita was very eager to go home and very appreciative when informed it is okay. She was calm and actually not emotive during our talk, and I reflected this back to her. She denied feeling depressed or having current emotional pain. I let her know I think that her problem is not depression, but a brain based mood regulation problem. I reviewed treatment approaches for it and changes we made hoping to improve things. I reviewed aftercare plan with her. Objective - Appearance Appearance: Thin Framed Hygiene: Normal Grooming: Fairly Well Kept - Behavior Psychomotor Activities: Abnormal-Decreased - Attitude and Relatedness Attitude and Relatedness: Cooperative Eye Contact: Good - Speech Quality: Unpressured Latencies: Normal Quantity: Terse - Mood Patient's Decription of Mood: "Anxious" - Affect Observed Affect: Non-labile Affect Consistent with: Euthymia - Thought Process Patient's Thought Process: Coherent, Goal Directed, Impoverished Thought Content: No Passive Wish, No Suicidal Planning, No Homicidal Ideation, No Paranoid Ideation - Sensorium Experiencing Hallucinations: No, Sensorium is Clear - Level of Consciousness Level of Consciousness: Alert - Impulse Control Impulse Control: Intact - Insight and Judgement Insight and Judgement: Fair Treatment Course & Assessment Clinical Course & Impression: First psychiatric hospitalization for a 65-year-old female with a history of brain cancer and resultant cognitive symptoms, and associated increase in emotional lability. Subacutely she has been treated with benzodiazepines, has stopped Zyprexa, and has received a trial of steroids; coinciding with an increase in her emotional dysregulation. That has been the primary symptom and I have not seen evidence of marked somatic arousal with anxiety, or persistent vegetative depressive symptoms. 12/12/16 Clear for release. Marquita was safe on checks, adherent with routines. She was consistently free of suicidal ideation. Although her situation can be fluid and hard to predict. She appeared better today - no subjective sadness, and controlled emotional expression. It could be that medication changes have had benefit. It could also be that she simply has variable presentations. She has merited psychiatric hospitalization on a voluntary basis. It is not clear she will benefit from the structured milieu here and has expressed distress with her retention in the unit. It is appropriate to make the hospitalization brief. 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 In this syndrome, it's important to educate caregivers that it is an involuntary syndrome that is distinct from depression. Medication management has continued with the outpatient medication regimen but tried to "undo" the recent changes that possibly made things worse. We stopped Ativan as benzodiazepines can have adverse effect with a vulnerable brain, will restart Zyprexa, and will hold Decadron. Even her clonazepam, at a low dose, may be unhelpful, so it is recommended, on discharge, to stop it. (she did receive one dose 12/11) Discharge planning involves appropriate aftercare. It will be good to have a psychiatrist involve and I understand outreach has been made to [facility]. Pseudobulbar Affect has an FDA approved drug: Nuedexa, which combines ( generically available) dextromethorphan hydrobromide and quinidine sulfate, both of which have been used in treatment of PDA - these all are appropriate to consider. I am not recommending or prescribing immediately for them, because I have seen improvement already with the changes (withdrawal of medication) employed already and feel doing more, as patient is leaving my care, would be too much. Admission was justified on basis of symptoms impairing basic function. They are milder, but persist, and are not expected to improve much more in this setting. Suicide risk has not been a concern, but is elevated over the general population (and can't be modified) due to the risk factor of pt's medical condition and additionally some of the symptoms and impairment associated with it. Clear for Discharge: Adequate Clinical Respons, Acceptable Safety Profile, Low Utility of In Care Inpatient DSM-IV Dx: 1. Mood disorder not otherwise specified. 2. Rule out medication adverse effect (steroids and benzodiazepines). 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 Consider Pseudobulbar Affect, Involuntary Emotional Expression Disorder. 4. Anxiety state not otherwise specified. Discharge Planning - Discharge Planning Discharge Plan: Outpatient Follow Up Outpatient Program: Private Clinician(s) Recommendations for Continuing Care: Medication Management, Psychotherapy, Primary Care Followup, Specialty Followup - Oncology Medications: Current Medications Citalopram Hydrobromide (Celexa Tab*) 20 mg PO DAILY JENNY Last Admin: 12/12/16 08:45 Dose: 20 mg Clonazepam (Klonopin Tab(*)) 0.25 mg PO TID PRN PRN Reason: ANXIETY Last Admin: 12/11/16 15:52 Dose: 0.25 mg Docusate Sodium (Colace Cap*) 100 mg PO DAILY PRN PRN Reason: CONSTIPATION Lacosamide (Vimpat Tab*) 50 mg PO BID [facility] Last Admin: 12/12/16 08:46 Dose: 50 mg Multivitamins (Theragran Tab*) 1 tab PO DAILY [facility] Last Admin: 12/12/16 08:45 Dose: Not Given Olanzapine (Zyprexa Tab*) 5 mg PO BEDTIME [facility] Last Admin: 12/11/16 20:53 Dose: 5 mg Ondansetron HCl (Zofran Tab*) 4 - 8 mg PO Q4HR PRN PRN Reason: NAUSEA Last Admin: 12/12/16 08:45 Dose: 4 mg Discharge Planning: Prescriptions provided for discharge [x] Yes Olanzapine Follow up care details as per social work arrangements. Patient response to discharge plan: [x] eager for discharge [] agreeable with discharge plan [] ambivalent about discharge [] disagrees with discharge today
== END 2016-12-12 13:00 | disposition home or self-care (01) | DRG 55 ==
LOC: BSU 18:06
PROVIDERS: ADMIT Psychiatry & Neurology Psychiatry; ATTEND Psychiatry & Neurology Psychiatry
DX: C71.9 Malignant neoplasm of brain, unspecified (principal); F06.30 Mood disorder due to known physiological condition, unspecified; F48.2 Pseudobulbar affect; F41.9 Anxiety disorder, unspecified; Z79.1 Long term (current) use of non-steroidal anti-inflammatories (NSAID); Z79.899 Other long term (current) drug therapy; Z88.5 Allergy status to narcotic agent
CPT/HCPCS: 36415; 80053; 81003; 81015; 82150; 83605; 83690; 83880; 85025; 86140; 87086; 93005; 96360; 96374; 96375; 99222; 99238; 99284; A9270-GY; J2060; J2405

== ENCOUNTER 2017-03-01 22:43 | Emergency (ER) | payer MEDICARE ==
[2017-03-01 23:34] LABS: Urine Bacteria Absent (Absent); Urine Bilirubin Negative (Negative); Urine Glucose Negative (Negative); Urine Nitrite Negative (Negative)
[2017-03-02] MEDS ORDERED: Metoclopramide IV* 5 MG/ML 2 ML VIAL IV ONE (00:14)
[2017-03-02] MEDS ORDERED: Metoclopramide IV* 5 MG/ML 2 ML VIAL ONE (00:16)
[2017-03-02 01:00] LABS: Hematocrit 44 % (35-47); Hemoglobin 14.9 g/dl (12.0-16.0); Mean Corpuscular HGB Conc 34 g/dl (31-36); Mean Corpuscular Hemoglobin 33 pg (27-31); Mean Corpuscular Volume 98 fL (80-97); Mean Platelet Volume 8 um3 (7.4-10.4); Red Blood Count 4.47 10^6/ul (4.0-5.4); Red Cell Distribution Width 14 % (10.5-15); White Blood Count 10.3 10^3/ul (3.5-10.8)
--- NOTE | 2017-03-02 01:07 | ED ---
Terri Sharp SooYoung, scribed for Gurvinder Marcum MD on 03/01/17 at 2323 . Headache - HPI Summary HPI Summary: A 66 y/o F JOLENE presents to ED with acute on chronic LEIGH ongoing since 2015, and worsening tonight. LEIGH is located behind her eyes. Associated sx: nausea. Pert PMHx: brain CA, sees Dr. Linda, oncology. Last saw Dr. Linda about 10 days ago. Per EMS, pt and her were advised by their doctor shanae to not come to the ED. - History Of Current Complaint Chief Complaint: EDHeadache Stated Complaint: HEADACHE Hx Obtained From: Patient, EMS Onset/Duration: Started weeks ago, Still Present Timing: Constant Location of Headache: Frontal - behind eyes Associated Signs And Symptoms: Nausea - Allergies/Home Medications Allergies/Adverse Reactions: Allergies Allergy/AdvReac Type Severity Reaction Status Date / Time Codeine Allergy Vomiting Verified 12/24/16 15:13 PMH/Surg Hx/FS Hx/Imm Hx Previously Healthy: No Endocrine/Hematology History: Denies: Hx Diabetes, Hx Thyroid Disease, Hx Anemia Cardiovascular History: Denies: Hx Hypertension, Hx Pacemaker/ICD Respiratory History: Denies: Hx Asthma, Hx Chronic Obstructive Pulmonary Disease (COPD) GI History: Reports: Hx Gall Bladder Disease Denies: Hx Jaundice, Hx Ulcer History: Reports: Other Problems/Disorders - stress incontinence Denies: Hx Renal Disease Musculoskeletal History: Reports: Hx Osteoporosis - low back Sensory History: Reports: Hx Contacts or Glasses Denies: Hx Hearing Aid Opthamlomology History: Reports: Hx Contacts or Glasses Neurological History: Reports: Hx Seizures Denies: Hx Headaches Psychiatric History: Reports: Hx Anxiety, Hx Depression, Hx Community Mental Health Tx Denies: Hx Eating Disorder, Hx Panic Disorder, Hx of Violent Episodes Against Others - Cancer History Cancer Type, Location and Year: 12 yrs ago. Right Breast stage 1 Hx Chemotherapy: No Hx Radiation Therapy: Yes - hormone therapy for 5 years - Surgical History Surgery Procedure, Year, and Place: Rt LUMPTECOMY -2003. HYSTERECTOMY. PROLAPSED -BLADDER LIFT/SLING -2013. C SECTION 1985. BRAIN TUMOR REMOVAL - [facility] - 2015. GALLBLADDER REMOVAL 3 WEELS AGO [facility] Hx Anesthesia Reactions: No Infectious Disease History: Reports: Hx Hepatitis - when pt was 18 Denies: Hx Human Immunodeficiency Virus (HIV), Hx Shingles, Hx Tuberculosis, Traveled Outside the [place] in Last 30 Days - Family History Known Family History: Positive: Other - Breast CA - Social History Occupation: Retired Lives: With Family Alcohol Use: None Alcohol Amount: one glass wine 3-4x week Hx Substance Use: No Substance Use Type: Reports: None Hx Tobacco Use: No Smoking Status (MU): Never Smoked Tobacco Review of Systems Positive: Nausea Positive: Headache All Other Systems Reviewed And Are Negative: Yes Physical Exam Triage Information Reviewed: Yes Vital Signs On Initial Exam: Initial Vitals Temp Pulse Resp BP Pulse Ox 98.1 F 66 16 170/82 99 03/02/17 00:25 03/02/17 00:25 03/02/17 00:25 03/02/17 00:25 03/02/17 00:25 Vital Signs Reviewed: Yes Appearance: Positive: Well-Appearing, No Pain Distress Skin: Positive: Warm Head/Face: Positive: Normal Head/Face Inspection Eyes: Positive: EOMI, MAURO ENT: Positive: Hearing grossly normal Neck: Positive: Supple Respiratory/Lung Sounds: Positive: Breath Sounds Present Cardiovascular: Positive: RRR Abdomen Description: Positive: Nontender, Soft Bowel Sounds: Positive: Present Musculoskeletal: Positive: Strength/ROM Intact Neurological: Positive: Alert, Oriented to Person Place, Time Psychiatric: Positive: Affect/Mood Appropriate Diagnostics - Vital Signs Vital Signs Temp Pulse Resp BP Pulse Ox 03/02/17 00:25 98.1 F 66 16 170/82 99 - Laboratory Lab Results: Lab Results 03/01/17 03/02/17 Range/Units 23:05 00:10 WBC 10.3 (3.5-10.8) 10^3/ul RBC 4.47 (4.0-5.4) 10^6/ul Hgb 14.9 (12.0-16.0) g/dl Hct 44 (35-47) % MCV 98 H (80-97) fL MCH 33 H (27-31) pg MCHC 34 (31-36) g/dl RDW 14 (10.5-15) % Plt Count 262 (150-450) 10^3/ul MPV 8 (7.4-10.4) um3 Neut % (Auto) 74.0 (38-83) % Lymph % (Auto) 18.1 L (25-47) % [place] % (Auto) 6.9 (1-9) % Eos % (Auto) 0.7 (0-6) % Baso % (Auto) 0.3 (0-2) % Absolute Neuts (auto) 7.6 (1.5-7.7) 10^3/ul Absolute Lymphs (auto) 1.9 (1.0-4.8) 10^3/ul Absolute Monos (auto) 0.7 (0-0.8) 10^3/ul Absolute Eos (auto) 0.1 (0-0.6) 10^3/ul Absolute Basos (auto) 0 (0-0.2) 10^3/ul Absolute Nucleated RBC 0 10^3/ul Nucleated RBC % 0 Urine Color Yellow Urine Appearance Cloudy Urine pH 7.0 (5-9) Ur Specific [place] 1.011 (1.010-1.030) Urine Protein Negative (Negative) Urine Ketones Negative (Negative) Urine Blood Negative (Negative) Urine Nitrate Negative (Negative) Urine Bilirubin Negative (Negative) Urine Urobilinogen Negative (Negative) Ur Leukocyte Esterase 3+ H (Negative) Urine WBC (Auto) 1+(6-10/hpf) H (Absent) Urine RBC (Auto) Trace(0-2/hpf) (Absent) Ur Squamous Epith Cells Present H (Absent) Amorphous Crystals Present H (Absent) Urine Bacteria Absent (Absent) Urine Glucose Negative (Negative) Urine Ascorbic Acid * H (Negative) Result Diagrams: 03/02/17 00:10 03/02/17 00:10 Lab Statement: Any lab studies that have been ordered have been reviewed, and results considered in the medical decision making process. - CT BRAIN CT CT Interpretation: No Acute Changes - IMPRESSION: Hypoattenuating process as described above similar in distribution to the signal abnormality seen on the prior MRI. Post surgical changes noted. No acute abnormality identified. CT Interpretation Completed By: Radiologist Re-Evaluation - Re-Evaluation First Eval Change: Improved - results Headache Course/Dx - Course Course Of Treatment: Pt is a 66 y/o F BIBA presents to ED with acute on chronic LEIGH worsening tonight. LEIGH is located behind her eyes. Associated sx: nausea. Pert PMHx: brain CA. Last saw Dr. Linda, oncology, about 10 days ago. Per EMS, pt and her were advised by their doctor shanae to not come to the ED. UA results show 3+ luekocyte esterase, 1+ WBC, sqaumous epithelia present, and ascorbic acid present. Brain CT shows no acute findings. - Diagnoses Provider Diagnoses: Headache Discharge - Discharge Plan Condition: Stable Disposition: HOME Patient Education Materials: General Headache (ED) Referrals: Angela Otero MD [Primary Care Provider] - Herman Evans MD [Medical Doctor] - 1 Week Additional Instructions: Follow up with Dr. Arauz, neurology, within the week. The documentation as recorded by the Terri amezcua SooYoung accurately reflects the service I personally performed and the decisions made by me, Gurvinder Marcum MD.
[2017-03-02 01:11] LABS: BUN/Creatinine Ratio 19.7 (8-20); Calcium 9.5 mg/dL (8.6-10.3); EGFR African American 114.5 (>60); EGFR Non-African American 89.1 (>60); Globulin 2.5 g/dL (2-4); Total Bilirubin 0.6 mg/dL (0.2-1.0); Total Protein 6.5 g/dL (6.4-8.9)
[2017-03-02 01:18] LABS: Potassium 4.2 mmol/L (3.5-5.0)
[2017-03-02 02:06] VITALS: BP 153/70
--- NOTE | 2017-03-02 08:08 | RAD ---
INDICATION: Headache in a patient with a history of PROPERTY ECONOMIST neoplasm COMPARISON: Most recent CT of the brain is dated December 06, 2016 TECHNIQUE: Contiguous axial sections of the brain were obtained from the skull base to the vertex without contrast. FINDINGS: Corresponding to the MRI of the brain dated January 12, 2017 there is hypoattenuation involving the right cerebral peduncle that extends to involve the right basal ganglia and right temporal lobe. At the right temporal lobe there is loss of patel-white matter differentiation. Elsewhere the patel-white matter differentiation is adequately maintained. There is no focal mass or mass effect. There is no midline shift or other herniation. There is no extra-axial hemorrhage. Postoperative findings include plate and screw fixation status post craniectomy involving the right temporal lobe. The calvarium is otherwise intact. The mastoid air cells are well aerated. The visualized portion of the paranasal sinuses are clear. IMPRESSION: There is mostly subcortical hypoattenuation with disruption of the patel-white matter from the right cerebellar peduncle extending to involve the right basal ganglia and right temporal lobe. When compared to the January 12, 2017 CT examination this corresponds to the previously identified sites of restricted diffusion and increased signal intensity. Differential includes postsurgical changes, postradiation granulation or recurrence of tumor. As clinically warranted further characterization could be made with MRI of the brain with and without contrast.
== END 2017-03-02 02:04 | disposition home or self-care (01) ==
LOC: ED 22:43
DX: R51 Headache (principal); R11.0 Nausea; N39.3 Stress incontinence (female) (male); M81.0 Age-related osteoporosis without current pathological fracture; F41.9 Anxiety disorder, unspecified; F32.9 Major depressive disorder, single episode, unspecified; Z90.710 Acquired absence of both cervix and uterus; Z90.49 Acquired absence of other specified parts of digestive tract; Z85.3 Personal history of malignant neoplasm of breast; Z85.841 Personal history of malignant neoplasm of brain; Z88.5 Allergy status to narcotic agent
CPT/HCPCS: 36415; 70450; 80053; 81003; 81015; 83605; 85025; 87086; 96374; 99283

== ENCOUNTER 2017-03-03 14:52 | Inpatient (IN) | payer MEDICARE ==
[2017-03-03 15:44] LABS: Hematocrit 45 % (35-47); Mean Corpuscular HGB Conc 33 g/dl (31-36); Mean Corpuscular Hemoglobin 33 pg (27-31); Mean Corpuscular Volume 99 fL (80-97); Mean Platelet Volume 8 um3 (7.4-10.4); Red Blood Count 4.55 10^6/ul (4.0-5.4); Red Cell Distribution Width 14 % (10.5-15); White Blood Count 8.3 10^3/ul (3.5-10.8)
[2017-03-03] MEDS ORDERED: Ondansetron INJ* 2 MG/ML VIAL IV ONE (15:47)
[2017-03-03] MEDS: NS 0.9% 1000 ML* 1,000 ML IV SCH ×2 (15:52→22:18)
[2017-03-03 16:01] LABS: ALT 10 U/L (7-52); AST 18 U/L (13-39); Albumin 3.9 g/dL (3.2-5.2); Alkaline Phosphatase 49 U/L (34-104); Anion Gap 6 mmol/L (2-11); BUN/Creatinine Ratio 16.4 (8-20); Blood Urea Nitrogen 12 mg/dL (6-24); C Reactive Protein < 1.00 mg/L (< 5.00); CO2 Carbon Dioxide 27 mmol/L (22-32); Calcium 9.7 mg/dL (8.6-10.3); Chloride 105 mmol/L (101-111); EGFR Non-African American 79.3 (>60); Globulin 2.6 g/dL (2-4); Glucose 117 mg/dL (70-100); Magnesium 2.2 mg/dL (1.9-2.7); Potassium 4.1 mmol/L (3.5-5.0); Sodium 138 mmol/L (133-145); Total Protein 6.5 g/dL (6.4-8.9)
[2017-03-03 16:19] LABS: TSH (Thyroid Stimulating Horm) 1.97 mcIU/mL (0.34-5.60)
[2017-03-03 17:37] LABS: Urine Bacteria Absent (Absent); Urine Bilirubin Negative (Negative); Urine Glucose Negative (Negative); Urine Nitrite Negative (Negative)
[2017-03-03] MEDS: LORazepam INJ* 2 MG/ML 1 ML VIAL IV ONE ×2 (18:30→19:05)
[2017-03-03] MEDS ORDERED: Gadoteridol* (CONTRAST) 279.3 MG/ML 10 ML IV ONE (19:00)
--- NOTE | 2017-03-03 19:47 | ED ---
Lamar Sharp Rebecca, scribed for Shawn Trujillo MD on 03/03/17 at 1516 . Neurological HPI - HPI Summary HPI Summary: Pt is a 66 y/o F who presents to ED c/o L-sided weakness, L-sided facial droop, inability to walk and multiple mechanical falls. Sx began 3 days ago and have been constant and worsening since onset. Sx aggravated and alleviated by nothing. Denies any neck pain. Denies any head trauma during falls. Pt is currently undergoing Tx for brain CA, she had 30 treatments of radiology and is taking Temodar for chemotherapy. She was last evaluated by Dr. Linda yesterday who wanted an MRI to be done this week, per pt's . Had an EEG done on (5 days ago). - History of Current Complaint Chief Complaint: EDNeurologicalDeficit Stated Complaint: LOSS OF LT SIDE BODY CONTROL,WEAKNESS Time Seen by Provider: 03/03/17 15:12 Hx Obtained From: Patient, Family/Clinical Applications Manager - Onset/Duration: Started days ago - 3 days ago, Still Present Timing: Constant Pain Intensity: 0 Pain Scale Used: 0-10 Numeric Aggravating: Nothing Alleviating: Nothing Associated Signs and Symptoms: Positive: Weakness - L-sided weakness - Additional Pertinent History Primary Care Physician: LORENE - Allergy/Home Medications Allergies/Adverse Reactions: Allergies Allergy/AdvReac Type Severity Reaction Status Date / Time Codeine Allergy Vomiting Verified 03/03/17 15:16 PMH/Surg Hx/FS Hx/Imm Hx Endocrine/Hematology History: Denies: Hx Diabetes, Hx Thyroid Disease, Hx Anemia Cardiovascular History: Denies: Hx Hypertension, Hx Pacemaker/ICD Respiratory History: Denies: Hx Asthma, Hx Chronic Obstructive Pulmonary Disease (COPD) GI History: Reports: Hx Gall Bladder Disease Denies: Hx Jaundice, Hx Ulcer History: Reports: Other Problems/Disorders - stress incontinence Denies: Hx Renal Disease Musculoskeletal History: Reports: Hx Osteoporosis - low back Sensory History: Reports: Hx Contacts or Glasses Denies: Hx Hearing Aid Opthamlomology History: Reports: Hx Contacts or Glasses Neurological History: Reports: Hx Seizures Denies: Hx Headaches Psychiatric History: Reports: Hx Anxiety, Hx Depression, Hx Community Mental Health Tx Denies: Hx Eating Disorder, Hx Panic Disorder, Hx of Violent Episodes Against Others - Cancer History Cancer Type, Location and Year: 12 yrs ago. Right Breast stage 1. Brain CA Hx Chemotherapy: No Hx Radiation Therapy: Yes - hormone therapy for 5 years - Surgical History Surgery Procedure, Year, and Place: Rt LUMPTECOMY -2003. HYSTERECTOMY. PROLAPSED -BLADDER LIFT/SLING -2013. C SECTION 1985. BRAIN TUMOR REMOVAL - [facility] - 2015. GALLBLADDER REMOVAL 3 WEELS AGO [facility] Hx Anesthesia Reactions: No Infectious Disease History: No Infectious Disease History: Reports: Hx Hepatitis - when pt was 18 Denies: Hx Human Immunodeficiency Virus (HIV), Hx Shingles, Hx Tuberculosis, Traveled Outside the [place] in Last 30 Days - Family History Known Family History: Positive: Other - Breast CA - Social History Alcohol Use: None Alcohol Amount: one glass wine 3-4x week Hx Substance Use: No Substance Use Type: Reports: None Hx Tobacco Use: No Smoking Status (MU): Never Smoked Tobacco Review of Systems Positive: Other - Multiple mechanical falls Positive: Other - Denies neck pain Neurological: Other - L-sided facial droop, inability to walk Positive: Weakness - L-sided weakness All Other Systems Reviewed And Are Negative: Yes Physical Exam - Summary Physical Exam Summary: General: well-appearing, no pain distress Skin: warm, skin color reflects adequate perfusion, dry Head: normal Eyes: EOMI, MAURO ENT: normal Neck: supple, nontender Respiratory: CTA, breath sounds present Cardiovascular: RRR Abdomen: soft, nontender Bowel: present Musculoskeletal: normal, strength/ROM intact Neuro: normal, A&O x3 Psych: affect/mood appropriate, L facial droop, drift with the LUE and LLE with no sensatoion deficit. No visual field deficit, no extinction or inattention, no slurring of words, no aphasia. GCS: 15 Triage Information Reviewed: Yes Vital Signs On Initial Exam: Initial Vitals Temp Pulse Resp BP Pulse Ox 98.5 F 74 16 113/64 96 03/03/17 14:58 03/03/17 14:58 03/03/17 14:58 03/03/17 14:58 03/03/17 14:58 Vital Signs Reviewed: Yes Diagnostics - Vital Signs Vital Signs Temp Pulse Resp BP Pulse Ox 03/03/17 14:58 98.5 F 74 16 113/64 96 - Laboratory Lab Results: Lab Results 0703/03/17 03/03/17 Range/Units 15:35 15:35 15:35 WBC 8.3 (3.5-10.8) 10^3/ul RBC 4.55 (4.0-5.4) 10^6/ul Hgb 15.0 (12.0-16.0) g/dl Hct 45 (35-47) % MCV 99 H (80-97) fL MCH 33 H (27-31) pg MCHC 33 (31-36) g/dl RDW 14 (10.5-15) % Plt Count 244 (150-450) 10^3/ul MPV 8 (7.4-10.4) um3 Neut % (Auto) 72.6 (38-83) % Lymph % (Auto) 19.9 L (25-47) % [place] % (Auto) 6.4 (1-9) % Eos % (Auto) 0.5 (0-6) % Baso % (Auto) 0.6 (0-2) % Absolute Neuts (auto) 6.0 (1.5-7.7) 10^3/ul Absolute Lymphs (auto) 1.6 (1.0-4.8) 10^3/ul Absolute Monos (auto) 0.5 (0-0.8) 10^3/ul Absolute Eos (auto) 0 (0-0.6) 10^3/ul Absolute Basos (auto) 0.1 (0-0.2) 10^3/ul Absolute Nucleated RBC 0 10^3/ul Nucleated RBC % 0 INR (Anticoag Therapy) 0.89 (0.89-1.11) APTT 28.2 (26.0-36.3) seconds Sodium 138 (133-145) mmol/L Potassium 4.1 (3.5-5.0) mmol/L Chloride 105 (101-111) mmol/L Carbon Dioxide 27 (22-32) mmol/L Anion Gap 6 (2-11) mmol/L BUN 12 (6-24) mg/dL Creatinine 0.73 (0.51-0.95) mg/dL Est GFR ( Amer) 102.0 (>60) Est GFR (Non-Af Amer) 79.3 (>60) BUN/Creatinine Ratio 16.4 (8-20) Glucose 117 H (70-100) mg/dL Calcium 9.7 (8.6-10.3) mg/dL Magnesium 2.2 (1.9-2.7) mg/dL Total Bilirubin 0.60 (0.2-1.0) mg/dL AST 18 (13-39) U/L ALT 10 (7-52) U/L Alkaline Phosphatase 49 (34-104) U/L C-Reactive Protein < 1.00 (< 5.00) mg/L Total Protein 6.5 (6.4-8.9) g/dL Albumin 3.9 (3.2-5.2) g/dL Globulin 2.6 (2-4) g/dL Albumin/Globulin Ratio 1.5 (1-3) TSH 1.97 (0.34-5.60) mcIU/mL Urine Color Urine Appearance Urine pH (5-9) Ur Specific [place] (1.010-1.030) Urine Protein (Negative) Urine Ketones (Negative) Urine Blood (Negative) Urine Nitrate (Negative) Urine Bilirubin (Negative) Urine Urobilinogen (Negative) Ur Leukocyte Esterase (Negative) Urine WBC (Auto) (Absent) Urine RBC (Auto) (Absent) Ur Squamous Epith Cells (Absent) Urine Bacteria (Absent) Urine Glucose (Negative) Urine Ascorbic Acid (Negative) 03/03/17 Range/Units 17:22 WBC (3.5-10.8) 10^3/ul RBC (4.0-5.4) 10^6/ul Hgb (12.0-16.0) g/dl Hct (35-47) % MCV (80-97) fL MCH (27-31) pg MCHC (31-36) g/dl RDW (10.5-15) % Plt Count (150-450) 10^3/ul MPV (7.4-10.4) um3 Neut % (Auto) (38-83) % Lymph % (Auto) (25-47) % [place] % (Auto) (1-9) % Eos % (Auto) (0-6) % Baso % (Auto) (0-2) % Absolute Neuts (auto) (1.5-7.7) 10^3/ul Absolute Lymphs (auto) (1.0-4.8) 10^3/ul Absolute Monos (auto) (0-0.8) 10^3/ul Absolute Eos (auto) (0-0.6) 10^3/ul Absolute Basos (auto) (0-0.2) 10^3/ul Absolute Nucleated RBC 10^3/ul Nucleated RBC % INR (Anticoag Therapy) (0.89-1.11) APTT (26.0-36.3) seconds Sodium (133-145) mmol/L Potassium (3.5-5.0) mmol/L Chloride (101-111) mmol/L Carbon Dioxide (22-32) mmol/L Anion Gap (2-11) mmol/L BUN (6-24) mg/dL Creatinine (0.51-0.95) mg/dL Est GFR ( Amer) (>60) Est GFR (Non-Af Amer) (>60) BUN/Creatinine Ratio (8-20) Glucose (70-100) mg/dL Calcium (8.6-10.3) mg/dL Magnesium (1.9-2.7) mg/dL Total Bilirubin (0.2-1.0) mg/dL AST (13-39) U/L ALT (7-52) U/L Alkaline Phosphatase (34-104) U/L C-Reactive Protein (< 5.00) mg/L Total Protein (6.4-8.9) g/dL Albumin (3.2-5.2) g/dL Globulin (2-4) g/dL Albumin/Globulin Ratio (1-3) TSH (0.34-5.60) mcIU/mL Urine Color Yellow Urine Appearance Cloudy Urine pH 7.0 (5-9) Ur Specific [place] 1.008 L (1.010-1.030) Urine Protein Negative (Negative) Urine Ketones Negative (Negative) Urine Blood Negative (Negative) Urine Nitrate Negative (Negative) Urine Bilirubin Negative (Negative) Urine Urobilinogen Negative (Negative) Ur Leukocyte Esterase 2+ H (Negative) Urine WBC (Auto) 3+(>20/hpf) H (Absent) Urine RBC (Auto) Absent (Absent) Ur Squamous Epith Cells Present H (Absent) Urine Bacteria Absent (Absent) Urine Glucose Negative (Negative) Urine Ascorbic Acid * H (Negative) Result Diagrams: 03/03/17 15:35 03/03/17 15:35 Lab Statement: Any lab studies that have been ordered have been reviewed, and results considered in the medical decision making process. - EKG 1602 Cardiac Rate: NL - 65 bpm EKG Rhythm: Sinus Rhythm ST Segment: Normal Ectopy: None - Additional Comments Diagnostic Additional Comments: Brain MRI -- Radiologist's reading pending at 1936 PM. See EMR NIH Scale - NIH Scale Level of Consciousness: Alert/Keenly Responsive Ask Patient the Month and His/Her Age: Both Correct Ask Pt to Open/Close Eyes and Math Coach/Release Non-Paretic Hand: Both Correctly Best Gaze (Only Horizontal Eye Movement): Normal Visual Field Testing: No Visual Loss Facial Paresis-Pt to Smile & Close Eyes or Grimace Symmetry: Minor Paralysis - L facial droop Motor Function - Right Arm: No Drift-Holds 10 Seconds Motor Function - Left Arm: Drifts LT 10 seconds Motor Function - Right Leg: No Drift-Holds 10 Seconds Motor Function - Left Leg: Drifts LT 10 seconds Limb Ataxia-Must be out of Proportion to Weakness Present: Absent Sensory (Use Pinprick to Test Arms/Legs/Trunk/Face): Normal Best Language (Describe Picture, Name Items): No Aphasia Dysarthria (Read Several Words): Normal Extinction and Inattention: No Abnormality Total Score: 3 Re-Evaluation - Re-Evaluation First Eval Re-Evaluation Time: 18:46 Comment: Evaluated pt in MRI suite. Given Ativan to treat anxiety, which alleviated sx. Course/Dx - Course Course Of Treatment: NO CRITICAL CARE TIME. DISCUSSED WITH DR LINDA, DR ARREDONDO AND HOSPITALIST. ADMIT HOSPITALIST STABLE. - Diagnoses Provider Diagnoses: Brain tumor - Physician Notifications Discussed Care Of Patient With: Aryan Linda Time Discussed With Above Provider: 15:32 Instructed by Provider To: Other - Advised a consult with neurology. Discussed care of pt with Dr. Rosangela King at 1543 who will evaluate pt in the ED. Discussed care of pt with Dr. Jacinto Pederson at 1914 who was made aware of the pt and is awaiting a disposition, dependent upon the findings of the MRI as she may need neurosurgery intervention. Discharge - Discharge Plan Condition: Stable Disposition: ADMITTED TO [facility] Discharge Disposition Comment: Pt will be signed out, pending dispo, awaiting MRI Referrals: Angela Otero MD [Primary Care Provider] - The documentation as recorded by the Lamar amezcua Rebecca accurately reflects the service I personally performed and the decisions made by me, Shawn Trujillo MD.
--- NOTE | 2017-03-03 20:16 | RAD ---
Indication: Left arm weakness. Image sequences: Axial diffusion, FLAIR, sagittal T1, axial T1, axial T2 and FLAIR images were obtained. 11 mL of ProHance was injected and postcontrast axial coronal and sagittal T1-weighted images were repeated. Comparison is made with previous exam dated January 12, 2017. There is enhancing mass involving the right cerebral peduncle extending into the right thalamus and right internal capsule which has increased since previous exam. Additional posterior medial temporal lobe enhancement is noted which is also increased since prior exam. In addition the mass in the right medial temporal lobe is persistent. There is some enhancement and extension into the right pelon. The basilar cistern is otherwise unremarkable. No evidence of uncal herniation is noted. No evidence of displacement of the temporal horn of the lateral ventricle is noted. There is some mild restriction of diffusion but this is felt to represent T2 shine through from vasogenic edema and mass effect. The extra-axial spaces are otherwise unremarkable. The basilar cisterns are unremarkable. IMPRESSION: INCREASING ENHANCING MASSES NOTED IN THE RIGHT CEREBRAL PEDUNCLE EXTENDING INTO THE RIGHT THALAMUS AND RIGHT POSTERIOR LIMB OF THE INTERNAL CAPSULE. ADDITIONAL MASS IS NOTED IN THE RIGHT MEDIAL TEMPORAL LOBE. THIS HAS INCREASED SINCE PREVIOUS EXAM ALTHOUGH NO MIDLINE SHIFT IS NOTED. THE BASILAR CISTERNS ARE OTHERWISE UNREMARKABLE.
[2017-03-03] MEDS ORDERED: Dexamethasone IV* 4 MG/ML 1 ML (4 MG) IV SLOW PU ONE (20:52)
[2017-03-03] MEDS ORDERED: NS 0.9% 1000 ML* 1,000 ML IV SCH (21:15)
[2017-03-03] MEDS: Acetaminophen TAB* 325 MG PO PRN (22:05)
[2017-03-03] MEDS: cefTRIAXone VIAL(*) 1,000 MG in NS 0.9% 50 ML* 50 ML IVPB SCH (22:19)
[2017-03-03] MEDS: Enoxaparin(*) 40 MG/0.4 ML SYR SUBCUT SCH (22:29)
[2017-03-03] MEDS: ARIPiprazole TAB* 5 MG PO SCH (22:30)
--- NOTE | 2017-03-03 23:40 | CONS ---
CC: Angela Otero MD; Aryan Linda MD; Miguel Jaimes MD * CONSULTATION REPORT: DATE OF CONSULT: 03/03/17 REASON FOR CONSULT: Progressive left-sided weakness. 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 She originally presented with new-onset seizures and was treated with several different seizure medications which most recently was Vimpat; it was stopped in November 2016. She now presents to the emergency room with progressive left-sided weakness. Marquita typically walks with her with help, and they could walk up to a half a mile a week ago. At this point, she has a hard time just going to the bathroom. The weakness has particularly progressed in the last 2 days. She had been noted to have a left homonymous hemianopia by Dr. Mei when he evaluated her for asymmetry of pupils on 01/16/17. On 01/12/17, she had had an MRI which showed potential ischemia with diffusion weighted image change in the right cerebral peduncle to posterior limb in the internal capsule. There was also enhancement of the right uncus and medial temporal lobe questioned to be tumor as well as a separate area of right medial temporal lobe enhancement. She had seen Dr. Jaimes for seizures, originally had been on Keppra, which caused anxiety and depression, Depakote caused nausea and anxiety and more recently, she was on Vimpat with continued nausea and anxiety. She had been on 50 mg b.i.d. when she was seen in November and this was tapered off. Her anxiety and nausea continued. A recent EEG was obtained on 02/26/17. Preliminary report was available. No ongoing seizure activity was noted, but there was probable epileptiform activity with fast and slow activity in the right temporal region and occasional epileptiform discharge. There was also evidence of breach rhythm as may be seen in the setting of previous surgery. On today's visit, Marquita was accompanied by her and her son. They indicated the increasing weakness in the left hand side. She indicating that she kept falling over things on the left. She was noticed to have decreased engagement of the left arm when using walker. She herself did not appreciate left arm weakness. Marquita has had a significant difficulty with anxiety and her son indicates over the last 6 to 8 months, she has had progressive fearfulness and anxiousness since her original seizure and then the surgery. She will ask at home to go to the emergency room every 30 minutes. Multiple medications have been tried without success. She has also had a quite bit of nausea and it has been questioned whether the anxiety may be playing a role. She has lost 20 pounds in 2 months. It is hard for her to nap. She goes to the bathroom frequently. Her indicated that not only did she go to the bathroom frequently, but he noticed even further increase in the last day or two with the change in smell. PAST MEDICAL HISTORY: Includes a right temporal lobe glioma diagnosed a year and a half ago when she presented with seizure, status post resection, radiation , and one dose of Temodar therapy, following with Dr. Linda. She was treated with Decadron in the past with worsening of emotional lability. 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 She has had history of breast cancer on the right hand side in 2003 with lumpectomy and sentinel node evaluation. She has had a recent UTI about 2 weeks ago, history of bladder lift and a cholecystectomy to see if it would help nausea in the setting of her having gallstones. There was no improvement. CURRENT MEDICATIONS: Include: 1. Klonopin 0.25 mg up to approximately 4 times a day, sometimes more frequently p.r.n. anxiety. This also helps in prevention of seizure. 2. Abilify 5 mg p.o. b.i.d. 3. Lexapro 50 mg p.o. daily. 4. Zofran 4 mg p.o. p.r.n. nausea. 5. Compazine 5 mg p.r.n. nausea. 6. Tylenol p.r.n. pain. ALLERGIES: Include CODEINE. SOCIAL HISTORY: Ms. Bo lives with her , Charlie. She does not smoke or drink alcohol. There is no illicit drug use. REVIEW OF SYSTEMS: Vision changes have been noted by Dr. Mei and not so much by patient. There has been no change in speech or swallow. No difficulty hearing. No chest pain, chest pressure, palpitations, shortness of breath. There has been anxiety and depression as noted above. There has been no drenching night sweats. There has been weight loss in the setting of nausea. She does eat, but eats small amounts. There has been no recent rashes, petechiae, bruising. Change in bladder habits as mentioned above. No change in bowel habits. No recent trauma. For further positive findings, please see past medical history and HPI. PHYSICAL EXAM: On examination, Marquita Bo's most recent vitals include blood pressure of 153/77, pulse of 70, respiratory rate 17, saturation was 98%, temperature was 98.5 degrees Fahrenheit. She had a regular cardiac rhythm. Her lungs were clear to auscultation. She was awake, but appeared tired, was distractible, initially wanting to go to the bathroom, later was quiet and cooperative with the exam and much more relaxed. She was aware she was in hospital. She immediately told to me that Dr. Jaimes was her neurologist. She had pupils which appeared to be equal and responsive to light on today's visit. Her fundi in the ports that I could see caught a flat edge and did not appreciate papilledema, but this could be missed in the setting of her moving her eyes. She did have full extraocular movements with saccadic intrusions. There was a left homonymous hemianopsia. She had left facial weakness consistent with a central VII. She denied any asymmetry to facial sensation. Her palate was upgoing. Tongue was midline. Sternocleidomastoid and trapezius were 5/5 in strength. Her hearing was equal to finger rub. There was normal bulk and tone on the right hand side with no pronator drift and full strength on the right hand side. For best strength on the left hand side, the examiner june her attention to the limb. She did have a pronator drift on that side and some mild weakness to about 5-/5 throughout. In her left lower extremity, she had a proximal weakness of 4+/5 and distal 5-/5, again needing attention drawn to the limb. She denied any asymmetry to pinprick, cold or light touch with double simultaneous stimulation in the arms except for one time when she only detected sensation in the right arm when stimulating both. She then was able to get both arms on second testing. Her reflexes were 2+ and symmetric in the upper extremities, slight brisker at the left knee than the right knee, 2+ at the ankles. Toes were downgoing on the right, equivocal on the left. Gait was not tested given clinical status. DIAGNOSTIC STUDIES/LAB DATA: Includes previous MRI, which was reviewed directly from me. EEG from January which preliminary report and summary was included above. Laboratory tests done today includes a white count of 8.3, hemoglobin and hematocrit were normal. MCV, MCH were elevated and platelets were 244. Her INR, PTT were normal. Her metabolic panel showed an elevated glucose at 117, TSH was normal. C-reactive protein was less than 1. Total protein and albumin were within normal limits. IMPRESSION: A 66-year-old woman with a history of glioma, status post resection , radiation, now with one dose of Temodar therapy who presents with 1 week of decreased endurance, 2 days of increased weakness on the left hand side. This occurs in the setting of significant findings on her last MRI in the medial temporal lobe and uncal region. Given her symptoms, her exam, her MRI in December, the patient is high risk for this being tumor. Given location, there is risk for herniation. In addition in the past, she had severe anxiety with Decadron leading to increased emotional lability. Therefore, it is essential to get an MRI of the brain with and without gadolinium tonight to know how to proceed and provide appropriate therapy. Given her increased frequency of urination and abnormal smell to urine, I will ask for urinalysis as if this is an infection, this could result in clinical worsening. EEG from January did show evidence of epileptiform activity, no ongoing seizure activity. I will discuss this with family further. Case was discussed with Dr. Linda and admission status will depend on results of MRI and urinalysis and further discussion with family. TIME SPENT: Over an hour and half was spent in direct patient care/ critical care time. Education was provided to the family. All questions were answered. Case has been discussed with Dr. Linda and we will let him know as soon as we know results as well as case was discussed with Dr. Trujillo, physician. [id number]/[facility] #: [id number] JOE
--- NOTE | 2017-03-04 00:05 | HP ---
CC: Dr. Angela Otero * MEDICINE HISTORY AND PHYSICAL: DATE OF ADMISSION: 03/03/17 PROVIDER: Keshav Gage NP ATTENDING PHYSICIAN: Dr. Jacinto Pederson *(as dictated by Keshav Gage NP) CONSULTING PHYSICIAN: Dr. Rosangela King. PRIMARY CARE PROVIDER: Dr. Angela Otero. PRIMARY ONCOLOGIST: Dr. Aryan Linda. CHIEF COMPLAINT: Left-sided weakness and left-sided facial droop. HISTORY OF PRESENT ILLNESS: Ms. Bo is a 66-year-old female who was brought into the ER today with concern for left-sided weakness, left-sided facial droop, inability to walk, and multiple falls at home. The history is primarily provided by the as the patient is drowsy and somewhat sedated following Ativan administration for an MRI this evening. Symptoms began approximately 3 days ago and have been progressively worsening since the onset. Her describes progressive loss of control of her left side and holding on to things and that the patient has fallen multiple times, including today where she slumped and fell to her knees. He has been having a difficult time keeping her safe and keeping her from falling. He does not feel that she has had any head trauma or injury, but the patient's and the patient deny having any other complaints, such as fever or chills, chest pain, trouble breathing, abdominal pain, nausea, vomiting, or diarrhea. There was concern for persistent complaints of anxiety and nausea, which has been ongoing for quite sometime. The patient is currently undergoing treatment for glioma. She has previously had resection, has been treated with 30 treatments of radiation and has been started on Temodar for chemotherapy. She is due for her next cycle of chemotherapy on March 09. Per the , the patient was last evaluated by Dr. Linda on 03/02/17, who recommended an MRI be completed this week. She did have an EEG done last . In the ER, the patient was seen in consultation by Dr. King, who had concern for the patient's urinalysis and suspected that a urinary tract infection could be playing into this. Additionally, she called the MRI team in for an emergent scan, given the patient 's presentation and concern for potential herniation. The MRI of the brain showed increasing enhancing masses that were noted in the right cerebral peduncle extending into the right thalamus and right posterior limb of the internal capsule. Additional mass was noted in the right medial temporal lobe. This has increased since previous exam, although no midline shift is noted. The basilar cisterns are otherwise unremarkable. There is evidence of vasogenic edema and mass effect per the report. PAST MEDICAL HISTORY: 1. Brain tumor. 2. History of breast cancer. 3. History of GERD. 4. History of anxiety. 5. Depression. 6. Pseudobulbar affect. PAST SURGICAL HISTORY: Includes recent laparoscopic cholecystectomy in November 2016. Also includes history of right lumpectomy in 2003, hysterectomy, prolapsed bladder with lift and sling in 2013, and brain tumor resection in 2015 at [facility]. HOME MEDICATIONS: Per the patient's : 1. Lexapro 15 mg daily. 2. Abilify 5 mg t.i.d. 3. Clonazepam 0.25 mg 4 times a day p.r.n. and 0.5 mg at bedtime as needed. 4. Acetaminophen 500 mg q.6 hours p.r.n. 5. Zofran 4 to 8 mg q.4 hours p.r.n. ALLERGIES: Include CODEINE. FAMILY HISTORY: The patient's mother at age 64 of breast cancer. Her father in his 90s and had documented bronchiectasis. The patient has a sister with a history of endometrial cancer and a brother with CAB about 10 years ago. SOCIAL HISTORY: The patient denies any tobacco, alcohol, or illicit drug use. She lives at home with her , who is her healthcare proxy. His name is Charlie Silva. REVIEW OF SYSTEMS: As per HPI. All those not mentioned are negative. PHYSICAL EXAMINATION GENERAL: Ms. Bo is a 66-year-old lady, who is lying in the ED stretcher, in no acute distress. She is drowsy, but arousable. VITAL SIGNS: Temperature 98.5, heart rate 60, respiratory rate 18, blood pressure 136/69, and O2 saturation is 97% on room air. HEENT: Head is atraumatic and normocephalic. There is a mild left facial droop. Pupils are equal, round, and reactive to light. Extraocular movements are intact. NECK: Supple, nontender. No lymphadenopathy appreciated. RESPIRATORY: Lungs are clear to auscultation. No accessory muscle use noted. CARDIAC: S1 and S2 heart sounds. Regular rate and rhythm. No murmurs, rubs, or gallops. No peripheral edema noted. Distal pulses are 2+. ABDOMEN: Soft, nontender, nondistended. Bowel sounds present times all 4 quadrants. MUSCULOSKELETAL: No clubbing or cyanosis is noted. The patient is able to move all extremities. NEUROLOGIC: Limited assessment secondary to the patient's drowsy state. Again , there is a minor left facial droop. The patient, when she became more alert, was able to answer questions appropriately and follow commands. Organisation [employer] Methods Analyst are weaker on the left side. The patient has a left arm and left leg drift. Sensation is intact to the lower extremities to both light touch and pinprick. LABORATORY DATA AND DIAGNOSTIC STUDIES: MRI of the brain as per above. The patient's EKG shows sinus rhythm with borderline short MT interval. Laboratory data shows a CMP: Sodium 138, potassium 4.1, chloride 105, carbon dioxide 26, BUN 12, creatinine 0.73, glucose 117, calcium 9.7, magnesium 2.2, total bilirubin 0.6, AST 18, ALT 10, alk phos 49, CRP less than 1, albumin 3.9, TSH 1.97. CBC: WBC 8.3, hemoglobin 15, hematocrit 45, MCV 99, MCH 33, platelet count 244. Urinalysis shows 2+ leukocyte esterase, no nitrites or bacteria. ASSESSMENT AND PLAN: Ms. Bo is a 66-year-old female with a past medical history of brain tumor, undergoing treatment as well as gastroesophageal reflux disease, anxiety, and pseudobulbar affect who presents today with concern for left- sided weakness secondary to an extension of the brain mass with some vasogenic edema. Plan is as follows: 1. Brain tumor with vasogenic edema and extension of mass. This is resulting in the patient's left-sided weakness. I did call Dr. Linda and discussed the results with him and he recommended starting the patient on 6 mg of Decadron as a loading dose and continue her on 4 mg b.i.d. 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 I did discuss the findings with the patient's as well as Dr. Linda's recommendations, and he is in agreement with this. Although he is concerned, he does feel that this is an appropriate choice at this time. Additionally, we will monitor the patient on neuro checks over night, recheck her labs in the morning. The patient is ordered physical and occupational therapies. Additionally, the patient's UA was not overly impressive; but given her neurological findings, it may be beneficial to treat her as if she may have an infection as this may be playing into her presentation. I will start her on ceftriaxone and await a urine culture. I do see that she did have an E. Coli urinary tract infection back in October of 2016, which was pansensitive to ceftriaxone. 2. Psychiatric history with depression, anxiety, and pseudobulbar affect. Continue home medication regimen of Abilify, Lexapro, clonazepam. We will carefully monitor the patient's mental health status with the initiation of steroids. 3. Chronic nausea. Continue Zofran at this time. The patient currently is not complaining of nausea and actually has asked for food. 4. FEN. The patient is ordered a regular diet. 5. DVT prophylaxis. She is ordered subcu Lovenox. Her DVT risk assessment is at highest risk. 6. Code status. The patient's healthcare proxy is her . She is a full code at this time. He is open to further discussion with Oncology as the patient progresses. TIME SPENT: Time spent on this admission was approximately 60 minutes, more than half that time was spent [id number] with the patient and her spouse obtaining history and physical, performing the physical examination, and reviewing the plan of care. Plan of care was also reviewed with my attending, Dr. Pederson, who is in agreement. KESHAV GAGE, NATHALIA [id number]/[facility] #: [id number] JOE
[2017-03-04] MEDS: Ondansetron INJ* 2 MG/ML VIAL IV PRN ×4 (00:42→18:22)
[2017-03-04] MEDS: clonazePAM TAB(*) 0.5 MG PO PRN ×6 (00:43→21:58)
[2017-03-04 06:08] LABS: Hematocrit 43 % (35-47); Hemoglobin 15.1 g/dl (12.0-16.0); Mean Corpuscular HGB Conc 35 g/dl (31-36); Mean Corpuscular Hemoglobin 34 pg (27-31); Mean Corpuscular Volume 97 fL (80-97); Mean Platelet Volume 8 um3 (7.4-10.4); Red Blood Count 4.44 10^6/ul (4.0-5.4); Red Cell Distribution Width 14 % (10.5-15); White Blood Count 9.4 10^3/ul (3.5-10.8)
[2017-03-04 06:18] LABS: BUN/Creatinine Ratio 16.2 (8-20); Calcium 9.4 mg/dL (8.6-10.3); EGFR African American 110.7 (>60); Potassium 4.2 mmol/L (3.5-5.0)
[2017-03-04] MEDS ORDERED: Dexamethasone IV* 4 MG in NS 0.9% 50 ML* 50 ML IVPB SCH (09:00)
[2017-03-04] MEDS: Dexamethasone IV* 4 MG/ML 1 ML (4 MG) IVPB SCH ×2 (09:07→21:58)
[2017-03-04] MEDS: ARIPiprazole TAB* 5 MG PO SCH ×2 (09:10→21:58)
[2017-03-04] MEDS: CMCS - Escitalopram (NF) 10 MG TAB PO SCH (09:10)
--- NOTE | 2017-03-04 10:15 | PN ---
PROGRESS NOTE: DATE OF SERVICE: HISTORY OF PRESENT ILLNESS: Marquita Bo was admitted last night with progressive weakness on the left hand side. She went on to have an MRI of the brain, which showed further enhancing masses in comparison to her May scan in the right cerebral peduncle, right thalamus with extension into the posterior limb of the internal capsule along with the medial temporal lobe. Increased edema was noted. No midline shift was noted and no uncal herniation. This film was reviewed directly. This morning, Marquita had no new concerns. She was worried about not remembering my name. She was able to; however, to remember that her primary doctor had just been in the room and that she was in hospital. PHYSICAL EXAMINATION: On examination, her most recent blood pressure was 116/ 61. Her pulse was 78, respiratory rate 18, saturation 94%, and temperature 97.6 degrees Fahrenheit. She had a regular cardiac rhythm. Her lungs were clear to auscultation. She had full extraocular movements with psychotic intrusions. There was a left homonymous hemianopsia. She has a mild left central 7th. There is a pronator drift on the left. On the right, she had full strength. On the left arm proximally, she is approximately 4+/5, in the biceps and triceps 4-/5, intrinsic hand muscles 4+/5. Hip flexion 4+/5. Knee extension 5/ 5, foot dorsiflexion 5-/5. There was a component of neglect with the left upper extremity. She improved in participation with drawing attention to her arm. MEDICATIONS: Medication list was reviewed. The patient is currently on: 1. Dexamethasone 2. Clonazepam. 3. Lexapro. 4. Zofran. 5. Normal Saline IV 6. Tylenol p.r.n. 7. Abilify 8. Ceftriaxone Please see MAR for further details. LABORATORY DATA: Data includes MRI as noted above. IMPRESSION: Marquita Bo is a 66-year-old woman with history of glioma status post radiation and on Temodar therapy with previous surgery, now with progressive enhancing lesions in the medial temporal lobe. The lesions do go into the internal capsule, which is most likely what is contributing to the weakness on the left hand side, appear to be very close to the thalamus and essential structures. The medial temporal lobe lesions certainly may be contributing to the severe emotional issues that she is having over the last many months. She has been started on dexamethasone, which may worsen some of her psychiatric state. She remains on her other antianxiety medications. She does have a history of seizure and is currently off medications. She is at risk for seizure. She currently takes clonazepam and in the future we may want to consider a seizure medication versus treatment with benzodiazepines and supportive care. Case was discussed at length with Dr. Angela Otero, and news was given to and Mrs. Bo. Dr. Angela Otero will be talking to Dr. Aryan Linda directly and we are looking forward to Dr. Linda giving input into potential options for treatment. If treatment can prolong, but not improve quality of life given the location of the tumor, [facility] may be an option to be considered. TIME SPENT: Over 30 minutes was spent in direct face to face with patient's care with 50% of the time was spent in education and counselling in conjunction with Dr. Angela Otero. [id number]/[facility] #: [id number] cc: Angela Otero MD cc: Miguel Jaimes MD cc: Aryan Linda MD [facility]
[2017-03-04] MEDS: NS 0.9% 1000 ML* 1,000 ML IV SCH (13:22)
[2017-03-04] MEDS: Enoxaparin(*) 40 MG/0.4 ML SYR SUBCUT SCH (21:58)
[2017-03-04] MEDS: cefTRIAXone VIAL(*) 1,000 MG in NS 0.9% 50 ML* 50 ML IVPB SCH (22:48)
[2017-03-05] MEDS: NS 0.9% 1000 ML* 1,000 ML IV SCH ×2 (03:06→19:12)
[2017-03-05 04:51] LABS: BUN/Creatinine Ratio 15.8 (8-20); EGFR African American 135.7 (>60); EGFR Non-African American 105.5 (>60)
[2017-03-05] MEDS: clonazePAM TAB(*) 0.5 MG PO PRN ×5 (05:30→23:42)
[2017-03-05] MEDS: Dexamethasone IV* 4 MG/ML 1 ML (4 MG) IVPB SCH ×2 (08:48→19:22)
[2017-03-05] MEDS: Ondansetron INJ* 2 MG/ML VIAL IV PRN ×3 (08:48→19:12)
[2017-03-05] MEDS: ARIPiprazole TAB* 5 MG PO SCH ×2 (08:50→19:22)
[2017-03-05] MEDS: CMCS - Escitalopram (NF) 10 MG TAB PO SCH (08:50)
[2017-03-05] MEDS: Acetaminophen TAB* 325 MG PO PRN (10:07)
--- NOTE | 2017-03-05 13:28 | PN ---
CC: Dr. Angela Otero; Dr. Aryan Linda; Dr. Miguel Jaimes * PROGRESS NOTE: DATE OF SERVICE/DICTATION: 03/05/17 HISTORY OF PRESENT ILLNESS: Marquita Bo was admitted to hospital with increasing left-sided weakness in the setting of known glioma and profound anxiety and agitation. As noted in the previous notes, progression was noted on MRI of the brain. This morning, Marquita was able to tell me immediately about her findings on the MRI and went from calm to crying. She overnight was noted to have some agitation in the setting of dexamethasone. This morning was calm when her found her. She received clonazepam; however, may need increasing dose based on report from and concerns regarding dexamethasone side effect. She is now on Abilify, dose recently increased a week ago to 5 mg p.o. b.i.d. Marquita was disturbed because last night she felt like her left arm was weak. She had not appreciated this so much in the past. PHYSICAL EXAMINATION: Today, Marquita fluctuated between being calm and interacting and crying. Her temperature was 98.2 degrees Fahrenheit, her pulse was 65 and regular, respiratory rate was 18, saturation was 99%, blood pressure was 142/ 80. She had regular cardiac rhythm. Her lungs were clear to auscultation. She was awake, alert, shifted from calm to agitated. Her pupils were equal at approximately 4 mm, left responded to 2, right responded to 3. She had full extraocular movements with saccadic intrusions. She has a left homonymous hemianopsia and mild left central 7th. Her right arm and leg were strong. On the left, she had no movement in the left upper extremity until I moved to the left side of the bed and had her pay attention, at which case we got at least antigravity with deltoid and she was able to give me supervisor cereal and get her forearm off the bed. In her left leg, she had weakness at approximately 4+/5 with hip flexion, knee extension, 5/5 distally, and foot dorsiflexion. LABORATORY DATA: Includes urinalysis which showed culture which was negative. Her metabolic panel showed a glucose that was high at 143 and chloride that was high at 112. MEDICATIONS: MAR was reviewed. IMPRESSION: Marquita Bo is a 66-year-old woman who was diagnosed with a right medial temporal lobe glioma approximately a year and a half ago when she presented with seizure. Now she is status post radiation, surgery, and one dose of Temodar showing significant progression. Her course was complicated by emotional lability with some component secondary to medication; however, question significant component secondary to disease given the disease location. Dr. Linda's note from yesterday clearly documents the lack of role for chemotherapy or surgery. He is looking into Gamma knife possibility, but clearly states even if this could be done, it is unlikely to do more than get her back to her clinical status over the last several months, and hospice care is an alternative option and Palliative Care consult may be helpful in either case. She has had no clear seizures. She is on clonazepam p.r.n. She may need more dose of benzodiazepine while on Decadron given potential for instability of mood. Hopefully, Abilify will help to prevent this. She does have a component of neglect limiting her left arm use. However, I cannot exclude a slight decline in function given examination today. TIME SPENT: Over 30 minutes was spent in clinical care. Educational was given to Juárez and her . All questions were answered. [id number]/[facility] #: [id number] [facility] FACILITYJeana
[2017-03-05] MEDS: clonazePAM TAB(*) 0.5 MG PO SCH (19:22)
[2017-03-05] MEDS: cefTRIAXone VIAL(*) 1,000 MG in NS 0.9% 50 ML* 50 ML IVPB SCH (22:16)
[2017-03-05] MEDS: Enoxaparin(*) 40 MG/0.4 ML SYR SUBCUT SCH (23:18)
[2017-03-05] MEDS ORDERED: Haloperidol INJ IV/IM* 5 MG/ML AMP ONE (23:59)
[2017-03-06] MEDS ORDERED: Haloperidol INJ IV/IM* 5 MG/ML AMP IV SLOW PU PRN (00:11)
[2017-03-06] MEDS: Haloperidol INJ IV/IM* 5 MG/ML AMP IV SLOW PU PRN ×2 (00:55→01:18)
[2017-03-06] MEDS ORDERED: LORazepam INJ* 2 MG/ML 1 ML VIAL ONE (01:27)
[2017-03-06] MEDS ORDERED: LORazepam INJ* 2 MG/ML 1 ML VIAL IV PUSH ONE (01:30)
[2017-03-06] MEDS ORDERED: Morphine ORAL.SOLN 10 mg* 2 MG/ML UDC 5 ml PO PRN ×2 (10:13)
[2017-03-06] MEDS: Dexamethasone IV* 4 MG/ML 1 ML (4 MG) IVPB SCH (10:33)
[2017-03-06] MEDS ORDERED: LORazepam TAB(*) 0.5 MG PO PRN (10:49)
[2017-03-06] MEDS: Ondansetron INJ* 2 MG/ML VIAL IV PRN ×3 (11:00→19:01)
[2017-03-06] MEDS: ARIPiprazole TAB* 5 MG PO SCH ×2 (11:04→20:38)
[2017-03-06] MEDS: CMCS - Escitalopram (NF) 10 MG TAB PO SCH (11:05)
[2017-03-06] MEDS: Polyethylene Glycol 3350* 17 GM PACKET PO SCH (11:23)
--- NOTE | 2017-03-06 11:57 | PN ---
Progress Note - Progress Note Date of Service: 03/06/17 SOAP: Subjective: []Agitated overnight and given haldol. Today is oriented to hospital and cancer. Discussed at home, progressive weakness and continued anxiety. Had very poor reaction to Dex. Has responded well to Abilify. No pain today. Acetaminophen (Tylenol Tab*) 650 mg PO Q4H PRN PRN Reason: FEVER/PAIN Last Admin: 03/05/17 10:07 Dose: 650 mg Aripiprazole (Abilify Tab*) 5 mg PO BID [facility] Last Admin: 03/06/17 11:04 Dose: 5 mg Clonazepam (Klonopin Tab(*)) 0.5 mg PO BEDTIME [facility] Last Admin: 03/05/17 19:22 Dose: 0.5 mg Clonazepam (Klonopin Tab(*)) 0.5 mg PO DAILY [facility] Escitalopram Oxalate (Lexapro (Nf)) 15 mg PO DAILY [facility] Last Admin: 03/06/17 11:05 Dose: 15 mg Haloperidol Lactate (Haldol Inj Iv/Im*) 1 mg IV SLOW PU Q4H PRN PRN Reason: AGITATION/DISTRESS Last Admin: 03/05/17 23:50 Dose: 1 mg Haloperidol Lactate (Haldol Inj Iv/Im*) 5 mg IV SLOW PU Q30M PRN PRN Reason: AGITATION Last Admin: 03/06/17 00:55 Dose: 5 mg Lorazepam (Ativan Tab(*)) 0.5 mg PO Q4H PRN PRN Reason: ANXIETY Morphine Sulfate (Morphine Oral.Soln 10 Mg*) 5 mg PO Q4H PRN PRN Reason: PAIN - MODERATE Morphine Sulfate (Morphine Oral.Soln 10 Mg*) 10 mg PO Q4H PRN PRN Reason: PAIN - SEVERE Ondansetron HCl (Zofran Inj*) 4 mg IV Q4H PRN PRN Reason: NAUSEA/VOMITING Last Admin: 03/06/17 11:00 Dose: 4 mg Polyethylene Glycol/Electrolytes (Miralax*) 17 gm PO DAILY [facility] Last Admin: 03/06/17 11:23 Dose: 17 gm Objective: Vital Signs Temp Pulse Resp BP Pulse Ox 98.3 F 58 18 145/74 97 03/05/17 20:23 03/05/17 20:23 03/06/17 03:50 03/05/17 20:23 03/05/17 20:23 []HEENT - Mucosa moist, cushnoid CTA RRR S1S2 Abd - good BS and NT Ext edema neuro - did not do full exam. She was delirious at times during interview. Assessment: []66 year old with GBM progressive after TMZ/XRT but off therapy for several months. Had recently re-started TMZ. I do not expect that TMZ would be effective. There are second line treatments that are available. However, benefit is limited and I do not expect improved QOL with treatment. Hospice is reasonable. Plan: [] 1. Discussed use of Ativan and Haldol for agitation. Has Clonazepam standing and PRN haldol and Ativan 2. Will work towards discharge home with hospice. does not feel can handle her at this time. Will adjust medication over weekend. 3. No dexamethason.
[2017-03-06] MEDS ORDERED: clonazePAM TAB(*) 0.5 MG PO ONE (13:23)
[2017-03-06] MEDS: Acetaminophen TAB* 325 MG PO PRN ×2 (13:37→19:00)
--- NOTE | 2017-03-06 13:39 | CONS ---
CC: Dr. Angela Otero PALLIATIVE CARE CONSULTATION: DATE OF CONSULT: 03/06/17 PRIMARY CARE PHYSICIAN: Dr. Angela Otero. REFERRING PHYSICIAN FOR CONSULT: Dr. Angela Otero. HOSPITAL COURSE: This is a 66-year-old female with a past medical history of glioma, status post ch emoradiation and resection, who presented to the emergency room on 03/03/17 with progressive left-si ded weakness. The patient did receive 1 dose of Temodar therapy prior to admission. On admission, hospitalist service admitted her to Dr. Otero's service and Neurology was also consulted. The pa savanna was initially started on Decadron and an MRI was ordered. The MRI showed increasing enhancing masses noted in the right cerebral peduncle extending into the right thalamus and right posterior l imb of the internal capsule, additional mass is noted in the right medial temporal lobe. This has i ncreased since previous exam. No midline shift is noted. The patient now with persistent left-sided weakness. The patient's quality of life has deteriorated over the past 8 months and has bee n the primary caregiver taking care of her at home, helping manage her nausea, anxiety, and right-si ded headache that she has had since her surgery back in 2016. According the records and the staff, Dr. Otero spoke with them regarding hospice and the family is interested in pursuing hospice on m y encounter. The , Charlie Silva, and the 2 children are both present at the bedside and he stat es that the plan is for her to go to the hospice residence or if there is no bed available to have h er go home under his care. The concern is that she now needs more care than he was providing with t his new left-sided weakness as she is not able to stand or do any further independent activities of daily living and now will require 24-hour care. The sons expressed their concern about their father and overextending himself as a primary caregiver and they spoke about getting friends and neighbors to help as well and that they ultimately would like to put her in the residence once the bed is walter ilable. She states her appetite has been adequate. She has lost about 20 pounds. She states her an xiety has been terrible. They did discuss with Dr. Otero stopping the steroids because they felt this was causing too much agitation and anxiety and she required Haldol last evening. She has a si gnificant amount of nausea. It is unclear if the anxiety is contributing to the nausea or vice vers a; however, they both appeared to be regularly constant, no vomiting. She does have some right-side d head pain, otherwise no other pain. Remaining review of systems is negative. PAST MEDICAL HISTORY: 1. History of a right temporal lobe glioma diagnosed a year and half ago, [facility] also received 1 dose of Temodar, followed by Dr. Linda. 2. History of epilepsy, secondary to the tumor. 3. History of breast cancer, status post lumpectomy in 2003. 4. Anxiety. 5. Depression. 6. History of cholecystectomy. INPATIENT MEDICATIONS: 1. Clonazepam 0.5 mg p.o. q.4 hours as needed. 2. MiraLAX 17 g p.o. daily. 3. Zofran 4 mg q.4 hours as needed. 4. Morphine 15 mg every 4 hours as needed for pain. 5. Haldol 1 mg q.4 hours as needed for agitation. 6. Abilify 5 mg p.o. b.i.d. 7. Tylenol 650 mg every 4 hours as needed. 8. Lexapro 15 mg daily. ALLERGIES: CODEINE, vomiting. FAMILY HISTORY: Mother from breast cancer, age 64. Father in his 90s. Sister inez d a history of endometrial cancer. SOCIAL HISTORY: The patient is living at home with her , Charlie Silva, who is her healthcare p alysia. Her MOLST form is a DNR/DNI, do not send to the hospital with limited medical interventions. No history of tobacco or illicit drug use. REVIEW OF SYSTEMS: As per HPI. All those not mentioned are negative. PHYSICAL EXAM: Vitals: Temp is 98.3, pulse rate is 67, respiratory rate is 18, oxygen saturation 9 7% on room air, blood pressure 145/74. General: No acute distress, resting comfortably with her karl castano and 2 sons at the bedtime. HEENT: Neck supple. No lymphadenopathy. Pupils are equal and ed ctive. Head normocephalic, has a slight cushingoid appearance. Mucous membranes are moist. Cardiac : Regular rate and rhythm. Soft systolic murmur heard throughout. Respiratory: Clear to auscultat ion. No wheezes, rhonchi, or rales. Abdomen: Soft, diffuse tenderness. No rebound or guarding. E xtremities: No clubbing, cyanosis, or edema. +1 DPs. Neurologic: Alert and oriented x3. The pat ient with 2/5 left upper extremity strength and 4/5 left lower extremity strength. ASSESSMENT AND PLAN: This is a 66-year-old female, who has a history of right temporal lobe glioma, status post chemoradiation and resection, on Temodar, who presented with worsening neurologic sympt oms with left-sided weakness, found to have progression of her mass on MRI findings. The patient's quality of life has seemed to have deteriorated over the past 8 months. The family is opting for ho spice which she will qualify for with her diagnosis of glioma, not responsive to treatment. We agre e with stopping her Decadron as this seems to be causing more problems with her anxiety, agitation, and is not providing any benefit for her. We discussed starting her on clonazepam scheduled at bedt esther and in the morning as there was concern that she was not getting it when she needed it and is ta juju too long and starting her on Ativan for as needed, a shorter-acting benzodiazepine, and replace ment of clonazepam as needed and this may also help with her nausea as well. I will follow up with hunter meléndez. I would strongly encourage residence placement unless there are more clear resources set up in place for discharge to home. Thank you for this consultation. I will follow along with you. PATIENT TIME: Greater than 90 minutes was spent doing this consultation, more than half the time sp ent in direct patient contact. [id number]/[facility] #: [id number]
[2017-03-06] MEDS: clonazePAM TAB(*) 0.5 MG PO SCH (19:00)
[2017-03-06] MEDS: clonazePAM TAB(*) 0.5 MG PO PRN (20:38)
--- NOTE | 2017-03-07 02:48 | PN ---
CC: Dr. Angela Otero; Dr. Aryan Linda; Dr. Miguel Jaimes * PROGRESS NOTE: DATE OF FOLLOWUP: 03/06/17 HISTORY OF PRESENT ILLNESS: Since last night, Marquita Bo had a difficult time. She had profound agitation last night requiring Haldol. Dr. Angela Otero has stopped her dexamethasone. After discussions regarding options for her brain tumor, decision was made to transition to [facility]. Dr. Laura Leigh has seen her in consultation. Clonazepam has been changed to regular dosing with p.r.n. Ativan. In review of her medications, her last dose of clonazepam was last night. On today's visit, Marquita expressed clear understanding as to what was going on with not only having a difficult time last night, but also the progression of her tumor, the change in medications. She, however, expressed some paranoia about what happened last night and the people out there who are taking care of her. She also recognizes her anxiety, frequent need to go to the bathroom and desires medications that can make her calm. She has developed a headache across her forehead today. On today's visit, her most recent vitals include a temperature of 98.3 degrees Fahrenheit, blood pressure of 164/75, respiratory rate of 15, pulse 69, saturation 98%. She was awake, alert. Her facial expression was asymmetric to the left central VII with associated dysarthria. She needed to go to the bathroom as soon as I came in. She was able to transition to a commode with a gait belt. She had neglect of her left arm and decreased grasp on to the walker and needed help in getting in and out of bed. MEDICATIONS: Medication list was reviewed, includes: 1. Tylenol 650 mg p.o. q.4 hours p.r.n. fever or pain. 2. Ondansetron 4 mg IV q.4 hours p.r.n. nausea or vomiting. 3. Abilify 5 mg p.o. b.i.d. 4. Escitalopram 15 mg p.o. every day. 5. Clonazepam 0.5 mg p.o. b.i.d. 6. Haloperidol 1 mg IV q.4 hours p.r.n. agitation distress. 7. Haldol 5 mg IV q.30 minutes p.r.n. agitation. 8. Morphine 5 mg p.o. q.4 hours p.r.n. moderate pain. 9. Morphine 10 mg p.o. q.4 hours p.r.n. severe pain. 10. Ativan 0.5 mg q.4 hours p.r.n. anxiety. 11. MiraLAX 17 g p.o. every day. DATA: Includes note from Dr. Riley Martinez with discussion regarding use of Ativan and Haldol p.r.n. agitation with standing doses of clonazepam. IMPRESSION: A 66-year-old woman with history of right medial temporal tumor originally diagnosed as a grade 2 glioma, now with marked progression since December suggesting a more aggressive tumor with the course complicated by severe anxiety , worsened by dexamethasone. Her original presentation was of seizure and she had been on 3 seizure medications each time questioning side effects of the medications causing severe anxiety and now in retrospect realizing it most likely was not medication, but most likely tumor. Given lack of treatment options that would not only treat tumor, but improve quality of life, at this point she is transitioning to [facility]. She is getting regular doses of clonazepam with p.r.n. Ativan and Haldol. Her last scheduled dose of clonazepam, however, was last night. Therefore, I will give one dose now as she is a risk for withdrawal and seizure and at risk for seizure based on her underlying lesion. She has not been restarted on seizure medications as long as she is on regular benzodiazepines. This gives her some protection. Benzodiazepines can also help to treat her anxiety. Haldol and Ativan p.r.n. has been started. She has Tylenol and morphine available for pain and is requesting Tylenol for her headache. I will sign out Juárez Anupam's neurologic care to Dr. Clarisse jolly and our team will continue to follow with you. Please feel free to call if there are questions or concerns. TIME SPENT: Total of 25 minutes were spent in patient's care; over 50% of that time was spent in education and counseling. All questions were answered. [id number]/[facility] #: [id number] JOE
[2017-03-07] MEDS: clonazePAM TAB(*) 0.5 MG PO SCH ×2 (09:08→22:14)
[2017-03-07] MEDS: CMCS - Escitalopram (NF) 10 MG TAB PO SCH (09:08)
[2017-03-07] MEDS: Ondansetron INJ* 2 MG/ML VIAL IV PRN ×2 (09:08→13:43)
[2017-03-07] MEDS: ARIPiprazole TAB* 5 MG PO SCH ×2 (09:08→22:14)
[2017-03-07] MEDS: Polyethylene Glycol 3350* 17 GM PACKET PO SCH (09:09)
[2017-03-07] MEDS: clonazePAM TAB(*) 0.5 MG PO PRN (13:43)
[2017-03-07] MEDS ORDERED: Ondansetron ODT TAB* 4 MG SL PRN (14:23)
--- NOTE | 2017-03-08 03:54 | PN ---
NEUROLOGIC PROGRESS NOTE: DATE OF SERVICE: 03/07/17 PATIENT OF: Dr. Otero; Dr. Linda; Dr. Jaimes. HISTORY: She will be going [facility] for her brain tumor, and the dexamethasone has been stopped secondary to profound agitation. She has been placed on Klonopin 0.5 a day with p.r.n. dosing. She has not had any seizures. She has had mild headache. MEDICATIONS: Continued to be: 1. Zofran 4 mg IV q.4 hours p.r.n. nausea. 2. Abilify 5 mg b.i.d. 3. Escitalopram 15 mg daily. 4. Temazepam 0.5 b.i.d. 5. Haldol p.r.n. 1 mg IV. 6. Haldol 5 mg q.30 minutes p.r.n. agitation. 7. Morphine 5 mg q.4 hours p.r.n. moderate pain. 8. Ativan 0.4 q.4 hours p.r.n. anxiety. 9. MiraLAX 17 g p.o. every day. PHYSICAL EXAMINATION: On exam, temperature 98.2, pulse 73, respirations 16, blood pressure 140/70. She was alert with normal speech. Cranial nerves II through XII are intact other than some left facial weakness. She had 4/5 strength in the left arm, elsewhere strength appeared intact other than trace weakness in the left leg. Chest: Clear. Cardiovascular: Regular rate and rhythm. Abdomen: Soft with positive bowel sounds. IMPRESSION: I discussed with Juárez and her that the Klonopin would not be considered effective treatment if we were truly concerned about seizures, although it may have some protective effect. Both the dose is low and is not the most effective anticonvulsant. I reviewed the prior anticonvulsants that she was on and the side effects that she might have had and given the overall situation she and the family did not want to pursue other anticonvulsants at this point. I discussed if her situation change, we glad to reconsider. At this point, I will be glad to see if need arises. Thank you for sharing her case. [id number]/[facility] #: [id number] JOE
[2017-03-08] MEDS: Polyethylene Glycol 3350* 17 GM PACKET PO SCH (09:13)
[2017-03-08] MEDS: clonazePAM TAB(*) 0.5 MG PO SCH ×2 (09:13→20:18)
[2017-03-08] MEDS: ARIPiprazole TAB* 5 MG PO SCH ×2 (09:14→20:21)
[2017-03-08] MEDS: CMCS - Escitalopram (NF) 10 MG TAB PO SCH (09:14)
[2017-03-08] MEDS: clonazePAM TAB(*) 0.5 MG PO PRN ×2 (13:57→18:02)
[2017-03-08] MEDS: Acetaminophen TAB* 325 MG PO PRN (19:30)
[2017-03-09] MEDS: clonazePAM TAB(*) 0.5 MG PO PRN (01:00)
[2017-03-09] MEDS: Haloperidol INJ IV/IM* 5 MG/ML AMP IV SLOW PU PRN (01:12)
[2017-03-09] MEDS: Polyethylene Glycol 3350* 17 GM PACKET PO SCH (07:52)
[2017-03-09] MEDS: CMCS - Escitalopram (NF) 10 MG TAB PO SCH (07:53)
[2017-03-09] MEDS: clonazePAM TAB(*) 0.5 MG PO SCH (07:54)
[2017-03-09] MEDS: ARIPiprazole TAB* 5 MG PO SCH (07:54)
[2017-03-09 08:55] VITALS: BP 132/64
[2017-03-09] MEDS ORDERED: Sodium Phosphate ADULT ENEMA* 118 ml bottle PR ONE (09:00)
--- NOTE | 2017-03-09 17:02 | DS ---
CC: [facility] * DISCHARGE SUMMARY: DATE OF ADMISSION: 03/03/2017. DATE OF DISCHARGE: 03/09/2017. DISCHARGE DIAGNOSES: 1. Brain tumor, glioma, previously rated grade 2 with progressive growth on imaging and left hemiparesis. 2. Anxiety and nausea related to #1. 3. Fecal impaction. 4. History of breast cancer. 5. History of gastroesophageal reflux disease. HISTORY: Marquita Bo is a 66-year-old woman admitted with left-sided weakness, having been falling at home. Please see dictated admission note for details of the present illness, past medical history, family history, social and personal history, review of systems and physical examination. LABORATORY DATA: CBC; WBC 8.3, H and H 15/45, MCV 99, PLT 244,000. INR and PTT normal. Chemistry: sodium 138, potassium 4.1, chloride 105, CO2 is 27, BUN and creatinine 12/0.73, glucose 117. Rest of the comprehensive metabolic panel was within normal limits. TSH was normal. CRP was normal. Chemistries did not change during hospitalization. Urinalysis; yellow, clear, specific gravity 1.008, pH 7. Dipstick is positive for esterase 2+, wbc's 3+, squamous epithelial cells present. Urine culture negative. Imaging; brain MRI on 03/03/17 showed increasing enhancing masses in the right cerebral peduncle extending into the right thalamus and right posterior limb of the internal capsule. Additional mass noted in the right medial temporal lobe increased since previous exam. There was no midline shift. EKG on 03/03/17 showed borderline short NM interval, otherwise normal. CONSULTATIONS: Neurology, Dr. King, 03/03/17. This was done prior to the MRI. Dr. King felt that the patient had high risk for herniation related to tumor. She felt that the MRI should be done right away. Oncology, Dr. Linda, said that he felt that further treatment would probably be futile. He said that he would get in touch with [facility] about possible gamma knife. This was done and they felt that it would not improve the quality of her life, could delay progression temporarily, but it would require three treatments and it was not strongly recommended. Hospice consultation, Dr. Leigh, on 03/06/17. She felt that she had decreased quality of life and was a candidate for hospice. She agreed with stopping Decadron because of anxiety, agitation, no benefit. She recommended regularly scheduled benzodiazepines. HOSPITAL COURSE: The patient was admitted. She was initially felt to have a possible urinary tract infection and was put on ceftriaxone, which was stopped when we found that the cultures were negative. She was treated with Decadron for cerebral edema. This caused marked agitation and was subsequently stopped. Lovenox was ordered for DVT prophylaxis. She was initially a full code. When she went on to hospice, her code status was again discussed and she was DNR. She continued to have left-sided weakness during the hospitalization. The initial agitation with Decadron resolved with discontinuation of the Decadron and institution of regular clonazepam. She also received p.r.n. Haldol and p.r.n. clonazepam. She was quite depressed during hospitalization. Prior to discharge, she complained of upper abdominal discomfort and constipation. She was found to have a fecal impaction and was disimpacted. Stool is being sent for guaiac. It was quite dark. She was also complaining of upper abdominal discomfort. She will be starting on omeprazole at the time of discharge. At the time of discharge, she was to go home with hospice. Her vital signs are stable. Her stool guaiac is pending. DISCHARGE MEDICATIONS: At the time of discharge, she is to be on the following medications, 1. Abilify 5 mg twice a day. 2. Clonazepam 0.5 mg twice a day and every two hours as needed for agitation or anxiety. 3. Morphine 5 to 10 mg every four hours as needed for moderate to severe pain. 4. Tylenol 500 mg 1 to 2, four times a day as needed for mild pain or headache. 5. Omeprazole 20 mg once a day. 6. Ondansetron 4 mg every four hours as needed for nausea. 7. MiraLax 17 gm once a day. She will be followed by [facility]. They are coming to see her this morning. She will be transported home by ambulance. She is getting a fleet enema prior to discharge. [id number]/[facility] #: [id number] [facility]
== END 2017-03-09 10:25 | disposition hospice, home (50) | DRG 54 ==
LOC: ED 14:52 → MED 20:23
PROVIDERS: ADMIT Hospitalist; ATTEND Internal Medicine Geriatric Medicine
DX: C71.9 Malignant neoplasm of brain, unspecified (principal); G93.6 Cerebral edema; F41.9 Anxiety disorder, unspecified; K56.41 Fecal impaction; K21.9 Gastro-esophageal reflux disease without esophagitis; R53.1 Weakness; F48.2 Pseudobulbar affect; Z66 Do not resuscitate; F32.9 Major depressive disorder, single episode, unspecified; G40.909 Epilepsy, unspecified, not intractable, without status epilepticus; R11.0 Nausea; Z79.1 Long term (current) use of non-steroidal anti-inflammatories (NSAID); Z85.3 Personal history of malignant neoplasm of breast; Z79.899 Other long term (current) drug therapy; Z88.5 Allergy status to narcotic agent; Z80.3 Family history of malignant neoplasm of breast; Z80.49 Family history of malignant neoplasm of other genital organs
CPT/HCPCS: 36415; 70553; 80048; 80053; 81003; 81015; 82270; 83735; 84443; 85025; 85610; 85730; 86140; 87086; 93005; 99232; A9270-GY; A9579; J0696; J1100; J1630; J1650; J2060; J2405